=== PATIENT | male | born 1930 | race Caucasian/White ===

== ENCOUNTER 2016-12-02 13:36 | Observation (INO) ==
[2016-12-02] MEDS ORDERED: SALINE FLUSH 10ml SYRINGE IVF PRN (13:45)
--- NOTE | 2016-12-02 14:45 | Emergency Department Report ---
Medical Clearance HPI - General Chief complaint: Psychiatric Symptoms Stated complaint: [facility] evaluation Time Seen by Provider: 12/02/16 13:40 Source: family, RN notes reviewed Mode of arrival: ambulatory Limitations: altered mental status - History of Present Illness HPI Narrative: Pt here for medical clearance for [facility]. Family and NH staff report pt has had a progressive increase in aggressive behavior such as pinching and biting and has become increasingly more confused. MD complaint: medical clearance requested Onset (ago): unknown Reason for Medical Clearance: psychiatric condition Alleged Intoxication: No Traumatic Symptoms: denies traumatic injury Associated Symptoms: denies other symptoms Treatments Prior to Arrival: none Home medications: Home Medications Medication Instructions Recorded Confirmed Acetaminophen [Tylenol] 650 mg PO Q4HPRN PRN 12/02/16 12/03/16 Amlodipine [Norvasc] 5 mg PO DAILY 12/02/16 12/03/16 Atorvastatin [Lipitor] 40 mg PO HS 12/02/16 12/03/16 Dextran 70/Hypromellose 1 drop OP TID 12/02/16 12/03/16 [Artificial Tears Eye Drops] Ferrous Sulfate [Feosol] 325 mg PO DAILY 12/02/16 12/03/16 Indapamide [Lozol] 2.5 mg PO DAILY 12/02/16 12/03/16 Loratadine [Claritin] 10 mg PO DAILY PRN 12/02/16 12/03/16 Polyethylene Glycol 3350 [Miralax] 17 gm PO DAILY 12/02/16 12/03/16 Previous Rx's Medication Instructions Recorded Ascorbic Acid [Vitamin C] 250 mg PO DAILY tablet 12/16/16 Cyanocobalamin (B-12) [Vit. B-12] 1,000 mcg PO DAILY tablet 12/16/16 Ergocalciferol (Vit. D2) [Vitamin 50,000 unit PO Q7D capsule 12/16/16 D-2] Haloperidol [Haldol] 0.5 mg PO Q6H PRN #120 tab 12/16/16 PEG 3350 17gm PACKET [Miralax] 17 gm PO DAILY packet 12/16/16 Potassium Chloride [K-Dur] 10 meq PO WB tablet 12/16/16 Sennosides [Senna Lax] 17.2 mg PO HS tablet 12/16/16 Allergies/Adverse reactions: Allergies Allergy/AdvReac Type Severity Reaction Status Date / Time No Known Allergies Allergy Verified 12/02/16 13:53 Review of Systems Limitations: ROS unobtainable due to patient's medical condition PFS Patient Stated Medical History Dementia Yes Hypertension Yes Other Cardiology Yes: Hyperlipidemia Other GI Yes: Constipation Physical Exam - Limitations Limitations: altered mental status - General General appearance: alert, in no apparent distress - Normal Exams: Head:: Normocephalic without trauma Eyes:: Pupils are PERRLA w/ EOMI Neck:: Full range of motion, without adenopathy Chest/Respirations:: Clear all marshall, with good airflow, and symmetry bilaterally Cardiovascular:: Regular rate and rhythm, without murmur or gallop Abdomen:: Bowel sounds positive, soft, non-tender, non-distended Musculoskeletal:: No tenderness, or deformity noted, good range of motion, all extremities Integumentary:: No rashes Neurological:: Patient is alert (voices no complaints) Psychiatric:: Patient exhibits, appropriate attention, emotion and affect Course Vital Signs Temperature 97.6 F 12/02/16 13:40 Pulse Rate 73 12/02/16 13:40 Respiratory Rate 18 12/02/16 13:40 Blood Pressure 124/60 12/02/16 13:40 Pulse Oximetry 95 12/02/16 13:40 Temperature 96.2 F L 12/03/16 08:00 Pulse Rate 72 12/03/16 08:00 Respiratory Rate 16 12/03/16 08:00 Blood Pressure 135/67 12/03/16 08:00 Pulse Oximetry 98 12/03/16 08:00 Medical Clearance - [facility] Narrative Medical decision making narrative: EKG, and labs reviewed Hgb 8.0 with no obtainable history or old records for trending. There are no assessment findings consistent with lab results. Pt to be admitted to the hospitalist and then will transfer to [facility] when stable - Differential Diagnosis Differential Diagnosis Narrative: Anxiety, Depression, Dementia, UTI - Lab Data Attestation: I reviewed the patient's lab results. Result diagrams: 12/03/16 04:11 12/03/16 04:11 Lab Results 12/02/16 12/02/16 12/02/16 Range/Units 14:14 14:14 15:37 WBC 6.3 (4.5-11.0) T/MM3 RBC 2.70 L (4.50-5.90) M/MM3 Hgb 8.0 L (13.5-17.5) GM/DL Hct 25.5 L (41-53) % MCV 94.4 (80-100) UM3 MCH 29.6 (26-34) UUG MCHC 31.4 (31-37) GM/DL RDW Std Deviation 46.7 (36.9-50.2) FL Plt Count 199 (130-400) T/MM3 MPV 10.6 (9.4-12.4) UM3 Immature Gran % (Auto) 0.2 (0.0-0.5) % Neut % (Auto) 73.7 H (33-66) % Lymph % (Auto) 19.9 L (23-45) % [place] % (Auto) 4.6 (0-9.0) % Eos % (Auto) 0.8 (0-4) % Baso % (Auto) 0.8 (0-2) % Neut # (Auto) 4.6 (1.8-7.7) T/MM3 Lymph # (Auto) 1.3 (1-4.8) T/MM3 [place] # (Auto) 0.3 (0-0.8) T/MM3 Eos # (Auto) 0.1 (0-0.5) T/MM3 Baso # (Auto) 0.1 (0-0.2) T/MM3 Abs Immat Gran (auto) 0.01 (0.00-0.03) T/MM3 Turbidity < 20 (0-20) Sodium 142 (134-144) MEQ/L Potassium 3.2 L (3.6-5) MEQ/L Chloride 105 (98-107) MEQ/L Carbon Dioxide 28 (22-30) MEQ/L Anion Gap 9 (5-15) MEQ/L BUN 20.0 (9-20) MG/DL Creatinine 1.0 (0.8-1.5) MG/DL GFR Calculation 71 BUN/Creatinine Ratio 20 (6-26) RATIO Glucose 106 (75-110) MG/DL Calculated Osmolality 276 (261-280) MOSM/KG Calcium 7.7 L (8.4-10.2) MG/DL Total Bilirubin 0.50 (0.20-1.30) MG/DL Icterus Index < 2 (0-7) AST 16 L (17-59) U/L ALT 28 (21-72) U/L Alkaline Phosphatase 60 (38-126) U/L Total Protein 5.7 L (6.3-8.2) G/DL Albumin 2.9 L (3.5-5.0) G/DL Globulin 2.8 (2.4-3.6) G/DL Albumin/Globulin Ratio 1.0 L (1.1-2.2) RATIO TSH 1.34 (0.47-4.68) MIU/L Specimen Hemolysis < 15 (0-25) Ur Collection Type Urine, catheter Urine Color Yellow (YELLOW) Urine Clarity Clear Urine pH 5.5 (5.0-8.0) Ur Specific [place] 1.020 (1.015-1.025) Urine Protein Negative (NEGATIVE) Urine Glucose (UA) Negative (NEGATIVE) Urine Ketones Negative (NEGATIVE) Urine Occult Blood Negative (NEGATIVE) Urine Nitrate Negative (NEGATIVE) Urine Bilirubin Negative (NEGATIVE) Urine Urobilinogen 1.0 (NORMAL) EU/DL Ur Leukocyte Esterase Negative (NEGATIVE) Urinalysis Comment Microscopic not ind. Salicylates < 1.0 L (2-20) MG/DL Urine Opiates Screen ng/mL Ur Oxycodone Screen ng/mL Urine Methadone Screen ng/mL Ur Propoxyphene Screen ng/mL Acetaminophen < 10 L (10-30) UG/ML Ur Barbiturates Screen ng/mL U Tricyclic Antidepress ng/mL Ur Phencyclidine Scrn ng/mL Ur Amphetamines Screen ng/mL U Methamphetamines Scrn ng/mL U Benzodiazepines Scrn ng/mL Urine Cocaine Screen ng/mL U Cannabinoids Screen ng/mL 12/02/16 Range/Units 15:37 WBC (4.5-11.0) T/MM3 RBC (4.50-5.90) M/MM3 Hgb (13.5-17.5) GM/DL Hct (41-53) % MCV (80-100) UM3 MCH (26-34) UUG MCHC (31-37) GM/DL RDW Std Deviation (36.9-50.2) FL Plt Count (130-400) T/MM3 MPV (9.4-12.4) UM3 Immature Gran % (Auto) (0.0-0.5) % Neut % (Auto) (33-66) % Lymph % (Auto) (23-45) % [place] % (Auto) (0-9.0) % Eos % (Auto) (0-4) % Baso % (Auto) (0-2) % Neut # (Auto) (1.8-7.7) T/MM3 Lymph # (Auto) (1-4.8) T/MM3 [place] # (Auto) (0-0.8) T/MM3 Eos # (Auto) (0-0.5) T/MM3 Baso # (Auto) (0-0.2) T/MM3 Abs Immat Gran (auto) (0.00-0.03) T/MM3 Turbidity (0-20) Sodium (134-144) MEQ/L Potassium (3.6-5) MEQ/L Chloride (98-107) MEQ/L Carbon Dioxide (22-30) MEQ/L Anion Gap (5-15) MEQ/L BUN (9-20) MG/DL Creatinine (0.8-1.5) MG/DL GFR Calculation BUN/Creatinine Ratio (6-26) RATIO Glucose (75-110) MG/DL Calculated Osmolality (261-280) MOSM/KG Calcium (8.4-10.2) MG/DL Total Bilirubin (0.20-1.30) MG/DL Icterus Index (0-7) AST (17-59) U/L ALT (21-72) U/L Alkaline Phosphatase (38-126) U/L Total Protein (6.3-8.2) G/DL Albumin (3.5-5.0) G/DL Globulin (2.4-3.6) G/DL Albumin/Globulin Ratio (1.1-2.2) RATIO TSH (0.47-4.68) MIU/L Specimen Hemolysis (0-25) Ur Collection Type Urine Color (YELLOW) Urine Clarity Urine pH (5.0-8.0) Ur Specific [place] (1.015-1.025) Urine Protein (NEGATIVE) Urine Glucose (UA) (NEGATIVE) Urine Ketones (NEGATIVE) Urine Occult Blood (NEGATIVE) Urine Nitrate (NEGATIVE) Urine Bilirubin (NEGATIVE) Urine Urobilinogen (NORMAL) EU/DL Ur Leukocyte Esterase (NEGATIVE) Urinalysis Comment Salicylates (2-20) MG/DL Urine Opiates Screen Negative ng/mL Ur Oxycodone Screen Negative ng/mL Urine Methadone Screen Negative ng/mL Ur Propoxyphene Screen Negative ng/mL Acetaminophen (10-30) UG/ML Ur Barbiturates Screen Negative ng/mL U Tricyclic Antidepress Positive ng/mL Ur Phencyclidine Scrn Negative ng/mL Ur Amphetamines Screen Negative ng/mL U Methamphetamines Scrn Negative ng/mL U Benzodiazepines Scrn Negative ng/mL Urine Cocaine Screen Negative ng/mL U Cannabinoids Screen Negative ng/mL - EKG Data EKG #1 EKG shows normal: sinus rhythm [place]/QRS: left axis deviation, RBBB Disposition Clinical Impression: Dementia Qualifiers: Dementia type: unspecified type Dementia behavioral disturbance: with behavioral disturbance Qualified Code(s): F03.91 - Unspecified dementia with behavioral disturbance Disposition: 63 To [facility] [facility] Condition: Stable - Seen By: midlevel
--- OUTSIDE RECORDS SUMMARY | 2016-12-02 15:22 | External Medical Summary ---
:1930 Author Organization [facility] Address [address] [place] [address] Care Team Providers Name Role Phone Vaishnavi, Lenin Unavailable Unavailable PROBLEMS Unknown Problems ALLERGIES Unknown Allergies SOCIAL HISTORY No smoking Hx information available PLAN OF CARE VITAL SIGNS MEDICATIONS Unknown Medications RESULTS No Results PROCEDURES No Known procedures IMMUNIZATIONS No Known Immunizations
--- OUTSIDE RECORDS SUMMARY | 2016-12-02 15:22 | External Medical Summary ---
:1930 Author Organization [employer] Care Team Providers Name Role Phone Lenin Riggins Provider Role Unavailable Allergies No Known Allergies Problems Problem Type Condition ICD-9 Code Onset Dates Condition Status Problem Dementia 294.20 Active Problem Memory loss 780.93 Active Problem History of chicken pox V12.09 Active Problem Hyperlipidemia, Other and 272.4 Active unspecified Problem Hypertension, Unspecified 401.9 Active Problem Hypertrophy (benign) of prostate 600.01 Active with urinary obstruction and other lower urinary tract symptoms [LUTS] Medications No Known Medications Results No Known Results Summary Purpose [employer] Submission
--- OUTSIDE RECORDS SUMMARY | 2016-12-02 15:22 | External Medical Summary ---
:1930 Author Organization [employer] Care Team Providers Name Role Lenin Cevallos Provider Role Unavailable Allergies No Known Allergies Problems Problem Type Condition Code Onset Dates Condition Status Problem Hyperlipidemia, Other and 272.4 Active unspecified Problem Unstable gait R26.81 Active Problem History of chicken pox V12.09 Active Problem Chronic fatigue R53.82 Active Problem Hypertension, Unspecified 401.9 Active Problem Hypertrophy (benign) of prostate 600.01 Active with urinary obstruction and other lower urinary tract symptoms [LUTS] Problem Dementia 294.20 Active Problem Memory loss 780.93 Active Medications No Known Medications Results No Known Results Summary Purpose [email or web address] Submission
--- OUTSIDE RECORDS SUMMARY | 2016-12-02 15:22 | External Medical Summary ---
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
--- OUTSIDE RECORDS SUMMARY | 2016-12-02 15:22 | External Medical Summary ---
:1930 Author Organization [employer] Care Team Providers Name Role Phone Lenin Riggins Provider Role Unavailable Allergies No Known Allergies Problems Problem Type Condition ICD-9 Code Onset Dates Condition Status Assessment Memory loss 780.93 Active Problem Dementia 294.20 Active Problem Memory loss 780.93 Active Problem History of chicken pox V12.09 Active Problem Hyperlipidemia, Other and 272.4 Active unspecified Assessment Dementia 294.20 Active Problem Hypertension, Unspecified 401.9 Active Problem Hypertrophy (benign) of prostate 600.01 Active with urinary obstruction and other lower urinary tract symptoms [LUTS] Medications No Known Medications Procedures Procedure Coding System Code Date MRI BRAIN W/WO CPT-4 75075 May 11, 2014 Results No Known Results Summary Purpose [employer] Submission
--- OUTSIDE RECORDS SUMMARY | 2016-12-02 15:22 | External Medical Summary ---
:1930 Author Organization [employer] Care Team Providers Name Role Lenin Cevallos Provider Role Unavailable Allergies, Adverse Reactions, Alerts Substance Reaction Event Type N.K.D.A. Info Not Available Non Drug Allergy Problems Problem Type Condition ICD-9 Code Onset Dates Condition Status Assessment Anemia 285.9 Active Problem Dementia 294.20 Active Problem Memory loss 780.93 Active Problem History of chicken pox V12.09 Active Problem Hyperlipidemia, Other and 272.4 Active unspecified Assessment Dementia 294.20 Active Problem Hypertension, Unspecified 401.9 Active Problem Hypertrophy (benign) of prostate 600.01 Active with urinary obstruction and other lower urinary tract symptoms [LUTS] Medications Medication Code Code Instructions Start End Status Dosage System Date Date Namenda [facility] [address]-24 5 MG Orally May 1 tablet Twice a day 2012 Atorvastatin [facility] [id number] 40 MG TAKE ONE Calcium TABLET BY MOUTH EVERY DAY FOR 90 DAYS Amlodipine [facility] [address]-55 5 mg Orally 1 tablet Besylate Once a day Enalapril [facility] [address]-79 10 MG Orally qD Oct 17 TABLET Maleate 2008 Indapamide [facility] [address]-87 2.5 MG ORAL qD Feb 05 (one) 2004 TABLET qD Procedures Procedure Coding System Code Date VITAMIN B1 THIAMIN L CPT-4 63734 August 22, 2014 OFFICE VISITEST PT CPT-4 08055 August 22, 2014 CBC CPT-4 34917 August 22, 2014 Vital Signs Date/Time: August 22, 2014 Blood Pressure Systolic 124 mm Hg Height 70.25 in Weight 165.0 lbs BMI 23.50 Index Cardiac Monitoring Heart Rate 78 /min Blood Pressure Diastolic 76 mm Hg Results No Known Results Summary Purpose [employer] Submission
--- OUTSIDE RECORDS SUMMARY | 2016-12-02 15:23 | External Medical Summary ---
:1930 Author Organization [employer] Care Team Providers Name Role Phone Lenin Riggins Provider Role Unavailable Allergies No Known Allergies Problems Problem Type Condition Code Onset Dates Condition Status Problem Dementia 294.20 Active Problem Memory loss 780.93 Active Problem History of chicken pox V12.09 Active Problem Hyperlipidemia, Other and 272.4 Active unspecified Problem Hypertension, Unspecified 401.9 Active Problem Hypertrophy (benign) of prostate 600.01 Active with urinary obstruction and other lower urinary tract symptoms [LUTS] Medications No Known Medications Results No Known Results Summary Purpose [employer] Submission
--- OUTSIDE RECORDS SUMMARY | 2016-12-02 15:23 | External Medical Summary ---
:1930 Author Organization [employer] Care Team Providers Name Role Phone Lenin [...] Medications Results No Known Results Summary Purpose [employer] Submission
--- OUTSIDE RECORDS SUMMARY | 2016-12-02 15:23 | External Medical Summary ---
:1930 Author Organization [employer] Care Team Providers Name Role Phone Lenin Riggins Provider Role Unavailable Allergies No Known Allergies Problems Problem Type Condition ICD-9 Code Onset Dates Condition Status Problem Dementia 294.20 Active Problem Memory loss 780.93 Active Problem History of chicken pox V12.09 Active Problem Hyperlipidemia, Other and 272.4 Active unspecified Assessment Screening examination for V74.1 Active pulmonary tuberculosis Problem Hypertension, Unspecified 401.9 Active Problem Hypertrophy (benign) of prostate 600.01 Active with urinary obstruction and other lower urinary tract symptoms [LUTS] Medications No Known Medications Results No Known Results Summary Purpose [employer] Submission
--- OUTSIDE RECORDS SUMMARY | 2016-12-02 15:23 | External Medical Summary ---
:1930 Author Organization [employer] Care Team Providers Name Role Phone Lenin [...] Medications Results No Known Results Summary Purpose [employer] Submission
--- OUTSIDE RECORDS SUMMARY | 2016-12-02 15:23 | External Medical Summary ---
:1930 Author Organization [employer] Care Team Providers Name Role Phone Lenin [...] Medications Results No Known Results Summary Purpose [employer] Submission
--- OUTSIDE RECORDS SUMMARY | 2016-12-02 15:23 | External Medical Summary ---
:1930 Author Organization [employer] Care Team Providers Name Role Lenin Cevallos Provider Role Unavailable Allergies, Adverse Reactions, Alerts Substance Reaction Event Type N.K.D.A. Info Not Available Non Drug Allergy Problems Problem Type Condition ICD-9 Code Onset Dates Condition Status Assessment Hypertension, Unspecified 401.9 Active Problem Dementia 294.20 Active Problem Memory loss 780.93 Active Problem History of chicken pox V12.09 Active Problem Hyperlipidemia, Other and 272.4 Active unspecified Assessment Dementia 294.20 Active Problem Hypertension, Unspecified 401.9 Active Problem Hypertrophy (benign) of prostate 600.01 Active with urinary obstruction and other lower urinary tract symptoms [LUTS] Medications Medication Code Code Instructions Start End Status Dosage System Date Date Enalapril [facility] [address]-76 10 MG Orally qD Oct 17, TABLET Maleate 2008 Indapamide [facility] [address]-37 2.5 MG ORAL qD Feb 05, (one) 2003 TABLET qD Amlodipine [facility] 12363556821 5 MG TAKE ONE Besylate TABLET BY MOUTH EVERY DAY Atorvastatin [facility] 42794865059 40 MG TAKE ONE Calcium TABLET BY MOUTH EVERY DAY FOR 90 DAYS Namenda XR [facility] [address]-93 28 MG Orally September 06, 1 capsule Once a day 2014 Procedures Procedure Coding System Code Date OFFICE VISITEST PT CPT-4 96343 September 20, 2014 Vital Signs Date/Time: September 20, 2014 Blood Pressure Systolic 112 mm Hg Height 70.25 in Weight 157.0 lbs BMI 22.36 Index Cardiac Monitoring Heart Rate 78 /min Temperature 98.0 F Blood Pressure Diastolic 74 mm Hg Results No Known Results Summary Purpose [employer] Submission
--- OUTSIDE RECORDS SUMMARY | 2016-12-02 15:23 | External Medical Summary ---
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 20654937 with late onset Problem Dementia in other F02.80 Active 190549904 diseases classified elsewhere without behavioral disturbance Problem Essential I10 Active 23951474 hypertension Problem 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
--- OUTSIDE RECORDS SUMMARY | 2016-12-02 15:23 | External Medical Summary ---
:1930 Author Organization [employer] Care Team Providers Name Role Lenin Cevallos Provider Role Unavailable Allergies, Adverse Reactions, Alerts Substance Reaction Event Type N.K.D.A. Info Not Available Non Drug Allergy Problems Problem Type Condition Code Onset Dates Condition Status Assessment Unsteady gait R26.81 Active Problem Hyperlipidemia, Other and 272.4 Active unspecified Assessment Vertigo R42 Active Assessment Weight loss R63.4 Active Problem Unstable gait R26.81 Active Problem History of chicken pox V12.09 Active Problem Chronic fatigue R53.82 Active Problem Hypertension, Unspecified 401.9 Active Problem Hypertrophy (benign) of prostate 600.01 Active with urinary obstruction and other lower urinary tract symptoms [LUTS] Problem Dementia 294.20 Active Problem Memory loss 780.93 Active Medications Medication Code Code Instructions Start End Status Dosage System Date Date Atorvastatin [facility] 98693472090 40 MG TAKE 1 Calcium TABLET BY MOUTH EVERY DAY Amlodipine [facility] 77084916600 5 MG TAKE 1 Besylate TABLET BY MOUTH EVERY DAY Namenda XR [facility] [address]-68 28 MG Orally September 06, 1 capsule Once a day 2014 Enalapril [facility] [address]-94 10 MG Orally qD Oct 17, 1 TABLET Maleate 2009 [facility] [address]-63 Orally as Multivitamin directed for Men Indapamide [facility] 12487644524 2.5 MG TAKE 1 TABLET BY MOUTH EVERY DAY Procedures Procedure Coding System Code Date CBC CPT-4 14982 Nov 24, 2015 COMP PROFILE CPT-4 68144 Nov 24, 2015 AMYLASE CPT-4 89063 Nov 24, 2015 OFFICE VISITEST PT CPT-4 80297 Nov 24, 2015 Vital Signs Date/Time: Nov 24, 2015 Blood Pressure Systolic 122 mm Hg Height 70.25 in Weight 144.0 lbs BMI 20.51 Index Cardiac Monitoring Heart Rate 76 /min Temperature 98.4 F Blood Pressure Diastolic 80 mm Hg Results No Known Results Summary Purpose [employer] Submission
--- OUTSIDE RECORDS SUMMARY | 2016-12-02 15:23 | External Medical Summary ---
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
--- OUTSIDE RECORDS SUMMARY | 2016-12-02 15:23 | External Medical Summary | Referral Summary ---
:1930 Author Organization [facility] Address [address] [place] [address] Care Team Providers Name Role Phone VaishnaviLenin Primary Care Physician Encounter VC Date(s): 01/17/16 - 01/17/16 [facility] [address] [place] [address] [place] Discharge Diagnosis: Constipation Discharge Disposition: 01-Home or Self Care Attending Physician: Nikos Luke MD Admitting Physician: Nikos Luke MD Vital Signs Most recent to oldest [Reference Range]: 1 Temperature Oral [35.8-37.3 degC] 37.3 degC (01/17/16 12:13 PM) Peripheral Pulse Rate [60-100 bpm] 83 bpm (01/17/16 1:20 PM) Respiratory Rate [14-20 br/min] 16 br/min (01/17/16 1:20 PM) Blood Pressure [90-140/60-90 mmHg] 114/66 mmHg (01/17/16 1:20 PM) SpO2 96 % (01/17/16 1:20 PM) Problem List Condition Effective Dates Status Health Status Informant Hypertension(Confirmed) Active patient Dementia(Confirmed) Active patient Allergies, Adverse Reactions, Alerts No Known Medication Allergies Medications amLODIPine 5 mg oral tablet 0 Refill(s) Start Date: 08/28/15 Status: Orderedatorvastatin 40 mg oral tablet 0 Refill(s) Start Date: 08/28/15 Status: OrderedColace 100 mg oral capsule 100 mg 1 caps, Oral, BID, as needed for constipation, # 20 caps, 0 Refill(s) Start Date: 01/17/16 Status: Orderedenalapril 10 mg oral tablet 0 Refill(s) Start Date: 08/28/15 Status: OrderedGoLYTELY oral powder for reconstitution 240 mL, Oral, q10min, as directed on package labeling until one movement and then stop, # 1 Each, 0 Refill(s) Start Date: 08/28/15 Status: Orderedindapamide 2.5 mg oral tablet 0 Refill(s) Start Date: 08/28/15 Status: Orderedmineral oil oral liquid 30 mL, Oral, TID, as needed for constipation, # 480 mL, 0 Refill(s) Start Date: 01/17/16 Status: OrderedMiraLax oral powder for reconstitution 17 g, Oral, Daily, dissolve in water before taking, # 255 g, 0 Refill(s) Start Date: 01/17/16 Status: OrderedNamenda XR 28 mg oral capsule, extended release 28 mg, Oral, Daily, 0 Refill(s) Start Date: 08/28/15 Status: Ordered Results Chemistry Most recent to oldest [Reference Range]: 1 Occult Blood, Stool NPT [Negative] Negative (01/17/16 2:11 PM) Immunizations No data available for this section Procedures No data available for this section Social History Social History Type Response Smoking Status Never smoker Assessment and Plan No data available for this section
--- OUTSIDE RECORDS SUMMARY | 2016-12-02 15:23 | External Medical Summary ---
:1930 Author Organization [employer] Care Team Providers Name Role Phone Lenin Riggins Provider Role Unavailable Allergies, Adverse Reactions, Alerts Substance Reaction Event Type N.K.D.A. Info Not Available Non Drug Allergy Problems Problem Type Condition ICD-9 Code Onset Dates Condition Status Assessment Hyperlipidemia, Other and 272.4 Active unspecified Assessment Hypertension, Unspecified 401.9 Active Assessment Hypertrophy (benign) of prostate 600.01 Active with [...] Start End Status Dosage System Date Date Indapamide [facility] [address]-63 2.5 MG ORAL qD Feb 05 (one) 2003 TABLET qD Amlodipine [facility] [address]-98 5 mg Orally 1 tablet Besylate Once a day Namenda [facility] [address]-28 5 MG Orally May 01 tablet Twice a day [address] [facility] [address]-74 10 MG Orally qD Oct 17 TABLET Maleate [address] [facility] 24616083908 40 MG TAKE ONE Calcium TABLET BY MOUTH EVERY DAY FOR 90 DAYS Procedures Procedure Coding System Code Date OFFICE VISITEST PT CPT-4 54260 August 31, 2014 Vital Signs Date/Time: August 31, 2014 Blood Pressure Systolic 110 mm Hg Height 70.25 in Weight 162.0 lbs BMI 23.08 Index Cardiac Monitoring Heart Rate 78 /min Blood Pressure Diastolic 80 mm Hg Results No Known Results Summary Purpose [employer] Submission
--- OUTSIDE RECORDS SUMMARY | 2016-12-02 15:23 | External Medical Summary ---
:1930 Author Organization [employer] Care Team Providers Name Role Phone Lenin [...] Medications Results No Known Results Summary Purpose [employer] Submission
--- OUTSIDE RECORDS SUMMARY | 2016-12-02 15:23 | External Medical Summary ---
:1930 Author Organization [employer] Care Team Providers Name Role Phone Lenin [...] Medications Results No Known Results Summary Purpose [employer] Submission
--- OUTSIDE RECORDS SUMMARY | 2016-12-02 15:23 | External Medical Summary ---
:1930 Author Organization [employer] Care Team Providers Name Role Lenin Cevallos Provider Role Unavailable Allergies, Adverse Reactions, Alerts Substance Reaction Event Type N.K.D.A. Info Not Available Non Drug Allergy Problems Problem Type Condition Code Onset Dates Condition Status Assessment Dementia 294.20 Active Assessment Anemia 285.9 Active Problem Dementia 294.20 Active Problem Memory loss 780.93 Active Problem History of chicken pox V12.09 Active Problem Hyperlipidemia, Other and 272.4 Active unspecified Assessment Hypertension, Unspecified 401.9 Active Problem Hypertension, Unspecified 401.9 Active Problem Hypertrophy (benign) of prostate 600.01 Active with urinary obstruction and other lower urinary tract symptoms [LUTS] Medications Medication Code Code Instructions Start End Status Dosage System Date Date Namenda [facility] [address]-78 5 MG Orally May 1 tablet Twice a day 2012 Enalapril [facility] [address]-47 10 MG Orally qD Oct 17 TABLET Maleate 2008 Atorvastatin [facility] 27204249930 40 MG TAKE ONE Calcium TABLET BY MOUTH EVERY DAY FOR 90 DAYS Amlodipine [facility] [address]-25 5 mg Orally 1 tablet Besylate Once a day Indapamide [facility] [address]-37 2.5 MG ORAL qD Feb 05 (one) 2003 TABLET qD Procedures Procedure Coding System Code Date COMP PROFILE CPT-4 74751 June 08, 2014 OFFICE VISITEST PT CPT-4 65592 June 08, 2014 CBC CPT-4 64652 June 08, 2014 Vital Signs Date/Time: June 08, 2014 Blood Pressure Systolic 124 mm Hg Height 70.25 in Weight 168.0 lbs BMI 23.93 Index Temperature 98.4 F Blood Pressure Diastolic 76 mm Hg Results No Known Results Summary Purpose [employer] Submission
--- OUTSIDE RECORDS SUMMARY | 2016-12-02 15:23 | External Medical Summary ---
:1930 Author Organization [employer] Care Team Providers Name Role Phone Lenin [...] Medications Results No Known Results Summary Purpose [employer] Submission
--- OUTSIDE RECORDS SUMMARY | 2016-12-02 15:23 | External Medical Summary ---
:1930 Author Organization [employer] Care Team Providers Name Role Phone Lenin [...] Medications Results No Known Results Summary Purpose [employer] Submission
--- OUTSIDE RECORDS SUMMARY | 2016-12-02 15:23 | External Medical Summary ---
:1930 Author Organization [employer] Care Team Providers Name Role Lenin Cevallos Provider Role Unavailable Allergies, Adverse Reactions, Alerts Substance Reaction Event Type N.K.D.A. Info Not Available Non Drug Allergy Problems Problem Type Condition Code Onset Dates Condition Status Assessment Memory loss 780.93 Active Assessment Dementia 294.20 Active Assessment Hyperlipidemia, Other and 272.4 Active unspecified Problem Dementia 294.20 Active Problem Memory loss 780.93 Active Problem History of chicken pox V12.09 Active Problem Hyperlipidemia, Other and 272.4 Active unspecified Assessment Visit for TB skin test V74.1 Active Problem Hypertension, Unspecified 401.9 Active Problem Hypertrophy (benign) of prostate 600.01 Active with urinary obstruction and other lower urinary tract symptoms [LUTS] Medications Medication Code Code Instructions Start End Status Dosage System Date Date Indapamide [facility] [address]-10 2.5 MG ORAL qD Feb 05, (one) 2003 TABLET qD Namenda XR [facility] [address]-89 28 MG Orally September 06, 1 capsule Once a day 2014 Atorvastatin [facility] 02371260274 40 MG TAKE ONE Calcium TABLET BY MOUTH EVERY DAY FOR 90 DAYS Enalapril [facility] [address]-82 10 MG Orally qD Oct 17, 1 TABLET Maleate 2008 Amlodipine [facility] 19306041711 5 MG TAKE ONE Besylate TABLET BY MOUTH EVERY DAY Procedures Procedure Coding System Code Date Administration Fee 18yrs and up 1st injection CPT-4 05135 Nov 02, 2014 TB TUBERSOL CPT-4 18843 Nov 02, 2014 Mantoux Intradermal CPT-4 55341 Nov 02, 2014 OFFICE VISITEST PT CPT-4 45590 Nov 02, 2014 Vital Signs Date/Time: Nov 02, 2014 Blood Pressure Systolic 124 mm Hg Height 70.25 in Weight 159.0 lbs BMI 22.65 Index Cardiac Monitoring Heart Rate 78 /min Temperature 98.5 F Blood Pressure Diastolic 80 mm Hg Results No Known Results Immunizations Vaccine Administration Date Mantoux Intradermal Nov 02, 2014 Summary Purpose [employer] Submission
--- OUTSIDE RECORDS SUMMARY | 2016-12-02 15:23 | External Medical Summary ---
:1930 Author Organization [employer] Care Team Providers Name Role Phone Lenin [...] Medications Results No Known Results Summary Purpose [employer] Submission
--- OUTSIDE RECORDS SUMMARY | 2016-12-02 15:23 | External Medical Summary ---
[...] Hyperlipidemia, Other and 272.4 Active unspecified Assessment Swollen lip 528.5 Active Problem Hypertension, Unspecified 401.9 Active Problem Hypertrophy (benign) of prostate 600.01 Active with urinary obstruction and other lower urinary tract symptoms [LUTS] Medications Medication Code Code Instructions Start End Status Dosage System Date Date Amlodipine [facility] [address]-46 5 mg Orally 1 tablet Besylate Once a day Atorvastatin [facility] 23052819489 40 MG TAKE ONE Calcium TABLET BY MOUTH EVERY DAY FOR 90 DAYS Indapamide [facility] [address]-34 2.5 MG ORAL qD Feb 05, (one) 2003 TABLET qD Enalapril [facility] [address]-18 10 MG Orally qD Oct 17 TABLET Maleate 2008 Namenda [facility] [address]-98 5 MG Orally May 1 tablet Twice a day 2012 Procedures Procedure Coding System Code Date OFFICE VISITEST PT CPT-4 71938 July 14, 2014 Vital Signs Date/Time: July 14, 2014 Blood Pressure Systolic 122 mm Hg Height 70.25 in Weight 165.6 lbs BMI 23.59 Index Cardiac Monitoring Heart Rate 78 /min Temperature 98.3 F Blood Pressure Diastolic 80 mm Hg Results No Known Results Summary Purpose [employer] Submission
--- OUTSIDE RECORDS SUMMARY | 2016-12-02 15:23 | External Medical Summary ---
[...] urinary tract symptoms [LUTS] Medications Medication Code System Code Instructions Start Date End Date Status Dosage Namenda XR [facility] [address] 28 MG Orally Once September 06, 1 capsule 8-33 a day 2014 Results No Known Results Summary Purpose [employer] Submission
--- OUTSIDE RECORDS SUMMARY | 2016-12-02 15:23 | External Medical Summary ---
:1930 Author Organization 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
--- OUTSIDE RECORDS SUMMARY | 2016-12-02 15:23 | External Medical Summary ---
:1930 Author Organization [employer] Care Team Providers Name Role Phone Lenin [...] Medications Results No Known Results Summary Purpose [employer] Submission
--- OUTSIDE RECORDS SUMMARY | 2016-12-02 15:23 | External Medical Summary ---
:1930 Author Organization [email or web address] Care Team Providers Name Role Phone Lenin [...] Medications Results No Known Results Summary Purpose [email or web address] Submission
--- OUTSIDE RECORDS SUMMARY | 2016-12-02 15:23 | External Medical Summary ---
:1930 Author Organization [employer] Care Team Providers Name Role Phone Lenin Riggins Provider Role Unavailable Allergies No Known Allergies Problems Problem Type Condition ICD-9 Code Onset Dates Condition Status Assessment Pre-procedure lab exam V72.63 Active Problem Dementia 294.20 Active Problem Memory loss 780.93 Active Problem History of chicken pox V12.09 Active Problem Hyperlipidemia, Other and 272.4 Active unspecified Assessment Dementia 294.20 Active Problem Hypertension, Unspecified 401.9 Active Problem Hypertrophy (benign) of prostate 600.01 Active with urinary obstruction and other lower urinary tract symptoms [LUTS] Medications No Known Medications Procedures Procedure Coding System Code Date CREATININE CPT-4 73529 May 11, 2014 Results No Known Results Summary Purpose [employer] Submission
--- OUTSIDE RECORDS SUMMARY | 2016-12-02 15:23 | External Medical Summary ---
:1930 Author Organization [employer] Care Team Providers Name Role Lenin Cevallos Provider Role Unavailable Allergies, Adverse Reactions, Alerts Substance Reaction Event Type N.K.D.A. Info Not Available Non Drug Allergy Problems Problem Type Condition Code Onset Dates Condition Status Problem Hyperlipidemia, Other and 272.4 Active unspecified Assessment Chronic fatigue R53.82 Active Problem Unstable gait R26.81 Active Problem History of chicken pox V12.09 Active Problem Chronic fatigue R53.82 Active Problem Hypertension, Unspecified 401.9 Active Problem Hypertrophy (benign) of prostate 600.01 Active with urinary obstruction and other lower urinary tract symptoms [LUTS] Problem Dementia 294.20 Active Problem Memory loss 780.93 Active Medications Medication Code Code Instructions Start End Status Dosage System Date Date Indapamide [facility] 83714642026 2.5 MG TAKE 1 TABLET BY MOUTH EVERY DAY Daquan [facility] [address]-54 Orally as Multivitamin directed for Men Amlodipine [facility] 57199560322 5 MG TAKE 1 Besylate TABLET BY MOUTH EVERY DAY Namenda XR [facility] [address]-99 28 MG Orally September 06, 1 capsule Once a day 2014 Enalapril [facility] [address]-24 10 MG Orally qD Oct 17, 1 TABLET Maleate 2008 Atorvastatin [facility] 47314791208 40 MG TAKE 1 Calcium TABLET BY MOUTH EVERY DAY Procedures Procedure Coding System Code Date COMP PROFILE CPT-4 83858 September 20, 2015 OFFICE VISITEST PT CPT-4 52553 September 20, 2015 CBC CPT-4 09637 September 20, 2015 Vital Signs Date/Time: September 20, 2015 Blood Pressure Systolic 122 mm Hg Height 70.25 in Weight 144.0 lbs BMI 20.51 Index Cardiac Monitoring Heart Rate 78 /min Temperature 98.2 F Blood Pressure Diastolic 80 mm Hg Results Name Result Date Reference Range Unit Abnormality Flag CBC ----MCV 95.1 20150920 80.0-94.0 FL H ----HCT 35.1 20150920 39.0-49.0 % L ----MCHC 32.5 10916961 32.0-36.0 G/DL ----MCH 30.9 [id number] 26.0-32.0 PG ----EO# 0.1 [id number] 0.0-0.2 X10^3/UL ----PLT 234 93730032 130-400 X10^3 ----EO% 1.4 45835922 0.0-3.0 % ----RDW 13.3 81525725 11.5-15.5 % ----MO# 0.5 [id number] 0.1-0.6 X10^3/UL ----MO% 5.6 [id number] 1.7-9.3 % ----LY# 1.7 [id number] 1.2-3.4 X10^3/UL ----BA# 0.1 [id number] 0.0-0.1 X10^3/UL ----BA% 0.6 77821590 0.0-1.0 % ----HGB 11.4 74498375 13.8-17.0 G/DL L ----RBC 3.69 20105932 4.50-5.70 X10^6 L ----MPV 11.4 14529731 9.0-12.1 FL ----WBC 8.5 95597610 4.0-10.0 X10^3/UL ----NE% 72.1 59512163 42.2-75.2 % ----NE# 6.1 [id number] 1.4-6.5 X10^3/UL ----LY% 20.2 [id number] 20.5-51.1 % L COMPREHENSIVE CHEM PROFILE ----SODIUM 146 [id number] 133-145 MMOL/L H ----TOTAL BILI 0.23 [id number] 0.00-1.00 MG/DL ----CHLORIDE 101 [id number] 96-108 MMOL/L ----POTASSIUM 3.5 [id number] 3.3-5.1 MMOL/L ----CALCIUM 9.6 [id number] 8.7-10.3 MG/DL ----AST/SGOT 28 22924148 5-40 U/L ----CO2 33 45035392 23-31 MMOL/L H ----TOTAL PROTEIN 7.1 06150829 5.9-8.4 G/DL ----eGFR If Am 77 [id number] >60 ml/min/1.73m^ 2 ----ALBUMIN 4.3 [id number] 3.2-5.2 G/DL ----eGFR If Non 63 [id number] >60 ml/min/1.73m^ Am 2 ----BUN 30 [id number] 8-23 MG/DL H ----ALT/SGPT 35 96424862 5-40 U/L ----ALK PHOS 87 [id number] 34-114 U/L ----CREATININE 1.1 [id number] 0.5-1.2 MG/DL ----GLUCOSE 135 58156145 60-99 MG/DL H ----GLOBULIN 2.8 [id number] 2.0-4.4 G/DL Summary Purpose [employer]Works Submission
--- OUTSIDE RECORDS SUMMARY | 2016-12-02 15:23 | External Medical Summary ---
[...] End Status Dosage System Date Date Namenda [facility] [address]-81 5 MG Orally May 01 tablet Twice a day 2012 Atorvastatin [facility] 04592415856 40 MG TAKE ONE Calcium TABLET BY MOUTH EVERY DAY FOR 90 DAYS Enalapril [facility] [address]-13 10 MG Orally qD Oct 17 TABLET Maleate 2008 Amlodipine [facility] [address]-01 5 mg Orally 1 tablet Besylate Once a day Indapamide [facility] [address]-44 2.5 MG ORAL qD Feb 05 (one) 2003 TABLET qD Procedures Procedure Coding System Code Date OFFICE VISITEST PT CPT-4 51159 Apr 25, 2014 Vital Signs Date/Time: Apr 25, 2014 Blood Pressure Systolic 124 mm Hg Height 70.25 in Weight 172.8 lbs BMI 24.62 Index Cardiac Monitoring Heart Rate 80 /min Blood Pressure Diastolic 80 mm Hg Results No Known Results Summary Purpose [employer] Submission
--- OUTSIDE RECORDS SUMMARY | 2016-12-02 15:23 | External Medical Summary ---
:1930 Author Organization [employer] Care Team Providers Name Role Phone Lenin [...] Medications Procedures Procedure Coding System Code Date Administration Fee 18yrs and up 1st injection CPT-4 97120 Nov 21, 2014 TB TUBERSOL CPT-4 33306 Nov 21, 2014 Mantoux Intradermal CPT-4 72510 Nov 21, 2014 Results No Known Results Immunizations Vaccine Administration Date Mantoux Intradermal Nov 21, 2014 Summary Purpose [employer] Submission
--- OUTSIDE RECORDS SUMMARY | 2016-12-02 15:23 | External Medical Summary ---
:1930 Author Organization [employer] Care Team Providers Name Role Lenin Cevallos Provider Role Unavailable Allergies, Adverse Reactions, Alerts Substance Reaction Event Type N.K.D.A. Info Not Available Non Drug Allergy Problems Problem Type Condition ICD-9 Code Onset Dates Condition Status Assessment Hypertrophy (benign) of prostate 600.01 Active with urinary obstruction and other lower urinary tract symptoms [LUTS] Assessment Dementia 294.20 Active Assessment Hypertension, Unspecified 401.9 Active Assessment Hematuria 599.70 Active Problem Dementia 294.20 Active Problem Memory loss 780.93 Active Problem History of chicken pox V12.09 Active Problem Hyperlipidemia, Other and 272.4 Active unspecified Assessment Anemia 285.9 Active Problem Hypertension, Unspecified 401.9 Active Problem Hypertrophy (benign) of prostate 600.01 Active with urinary obstruction and other lower urinary tract symptoms [LUTS] Medications Medication Code Code Instructions Start End Status Dosage System Date Date Atorvastatin [facility] 33582446343 40 MG TAKE ONE Calcium TABLET BY MOUTH EVERY DAY FOR 90 DAYS Indapamide [facility] [address]-47 2.5 MG ORAL qD Feb 05 (one) 2003 TABLET qD Namenda [facility] [address]-45 5 MG Orally May 1 tablet Twice a day 2012 Amlodipine [facility] [address]-94 5 mg Orally 1 tablet Besylate Once a day Enalapril [facility] [address]-54 10 MG Orally qD Oct 17, TABLET Maleate 2008 Procedures Procedure Coding System Code Date COMP PROFILE CPT-4 61989 Apr 07, 2014 T4 CPT-4 91881 Apr 07, 2014 CBC CPT-4 92408 Apr 07, 2014 URINALYSIS CPT-4 70138 Apr 07, 2014 TSH CPT-4 05546 Apr 07, 2014 URINE CULTURE CPT-4 05703 Apr 07, 2014 OFFICE VISITEST PT CPT-4 96347 Apr 07, 2014 Vital Signs Date/Time: Apr 07, 2014 Blood Pressure Systolic 122 mm Hg Height 70.25 in Weight 173.4 lbs Oximetry 98 % Cardiac Monitoring Heart Rate 65 /min Temperature 97.6 F Blood Pressure Diastolic 82 mm Hg BMI 24.70 Index Results No Known Results Summary Purpose [employer] Submission
--- OUTSIDE RECORDS SUMMARY | 2016-12-02 15:24 | External Medical Summary ---
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
--- OUTSIDE RECORDS SUMMARY | 2016-12-02 15:24 | External Medical Summary ---
[...] loss 780.93 Active Medications No Known Medications Procedures Procedure Coding System Code Date MRI BRAIN W/WO CPT-4 48394 Nov 29, 2015 Results No Known Results Summary Purpose [employer] Submission
--- OUTSIDE RECORDS SUMMARY | 2016-12-02 15:24 | External Medical Summary ---
:1930 Author Organization [employer] Care Team Providers Name Role Phone Lenin [...] Medications Results No Known Results Summary Purpose [employer] Submission
--- OUTSIDE RECORDS SUMMARY | 2016-12-02 15:24 | External Medical Summary ---
:1930 Author Organization [facility] Address [address] [place] [address] Care Team Providers Name Role Phone Vaishnavi, Lenin Unavailable Unavailable PROBLEMS Type Condition ICD9-CM Code [id number] Code Onset Condition SNOMED Code Dates Status Problem Hypertrophy 600.01 Active 275637681 (benign) of prostate with urinary obstruction and other lower urinary tract symptoms [LUTS] Problem Hyperlipidemia, 272.4 Active 96475795 Other and unspecified Problem Chronic fatigue R53.82 Active 21166593 Problem Unstable gait R26.81 Active 43646500 Problem Memory loss 780.93 Active 21622798 Problem Hypertension, 401.9 Active 26998870 Unspecified Problem History of V12.09 Active 300116033 chicken pox Problem Dementia 294.20 Active 17944412 ALLERGIES Unknown Allergies SOCIAL HISTORY No smoking Hx information available PLAN OF CARE VITAL SIGNS MEDICATIONS Unknown Medications RESULTS No Results PROCEDURES No Known procedures IMMUNIZATIONS No Known Immunizations
--- OUTSIDE RECORDS SUMMARY | 2016-12-02 15:24 | External Medical Summary ---
[...] Medications Results No Known Results Summary Purpose [employer] Submission
--- OUTSIDE RECORDS SUMMARY | 2016-12-02 15:24 | External Medical Summary | Referral Summary ---
:1930 Author Organization [facility] Address [address] [place] [address] Care Team Providers Name Role Phone VaishnaviLenin Primary Care Physician Encounter VC Date(s): 08/28/15 - 08/28/15 [facility] [address] [place] [address] [phone] Discharge Diagnosis: Fecal impaction in rectum Discharge Diagnosis: Constipation Discharge Disposition: 01-Home or Self Care Attending Physician: Matt Ruano MD Admitting Physician: Matt Ruano MD Vital Signs Most recent to oldest [Reference Range]: 1 Temperature Oral [35.8-37.3 degC] 37.1 degC (08/28/15 9:58 AM) Peripheral Pulse Rate [60-100 bpm] 70 bpm (08/28/15 9:58 AM) Respiratory Rate [14-20 br/min] 18 br/min (08/28/15 9:58 AM) Blood Pressure [90-140/60-90 mmHg] 147/68 mmHg *HI* (08/28/15 9:58 AM) SpO2 93 % (08/28/15 9:58 AM) Problem List No data available for this section Allergies, Adverse Reactions, Alerts No Known Medication Allergies Medications amLODIPine 5 mg oral tablet 0 Refill(s) Start Date: 08/28/15 Status: Orderedatorvastatin 40 mg oral tablet 0 Refill(s) Start Date: 08/28/15 Status: Orderedenalapril 10 mg oral tablet 0 Refill(s) Start Date: 08/28/15 Status: OrderedGoLYTELY oral powder for reconstitution 240 mL, Oral, q10min, as directed on package labeling until one movement and then stop, # 1 Each, 0 Refill(s) Start Date: 08/28/15 Status: Orderedindapamide 2.5 mg oral tablet 0 Refill(s) Start Date: 08/28/15 Status: OrderedNamenda XR 28 mg oral capsule, extended release 28 mg, Oral, Daily, 0 Refill(s) Start Date: 08/28/15 Status: Ordered Results No data available for this section Immunizations No data available for this section Procedures No data available for this section Social History Social History Type Response Smoking Status Never smoker Assessment and Plan No data available for this section
--- OUTSIDE RECORDS SUMMARY | 2016-12-02 15:24 | External Medical Summary ---
:1930 Author Organization [email or web address] Care Team Providers Name Role Phone Lenin [...] Medications Results No Known Results Summary Purpose [email or web address] Submission
--- OUTSIDE RECORDS SUMMARY | 2016-12-02 15:24 | External Medical Summary ---
[...] Medications Results No Known Results Summary Purpose [employer] Submission
--- OUTSIDE RECORDS SUMMARY | 2016-12-02 15:24 | External Medical Summary ---
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 Unknown Non Drug Allergy May, Unknown SOCIAL HISTORY No smoking Hx information available PLAN OF CARE VITAL SIGNS Weight 148.7 lbs 2016-05-15 Height 70.25 in 2016-05-15 BMI 21.18 kg/m2 2016-05-15 Blood pressure systolic 124 mm Hg 2016-05-15 Blood pressure diastolic 68 mm Hg 2016-05-15 MEDICATIONS Medication Instructions Dosage Frequency Start End Duration Status Date Date Atorvastatin TAKE 1 90 Active Calcium 40 MG TABLET BY MOUTH EVERY DAY Indapamide 2.5 TAKE 1 90 Active MG TABLET BY MOUTH EVERY DAY Namenda XR 28 MG Orally Once a 1 capsule 24h Aug, DAYS Active day 2014 Enalapril TAKE 1 90 Active Maleate 10 MG TABLET BY MOUTH EVERY DAY Daquan as directed Active Multivitamin for Men Amlodipine TAKE 1 90 Active Besylate 5 MG TABLET BY MOUTH EVERY DAY RESULTS No Results PROCEDURES Procedure Date Ordered Related Diagnosis Body Site OFFICE VISITEST PT May 15, 2016 IMMUNIZATIONS No Known Immunizations
--- OUTSIDE RECORDS SUMMARY | 2016-12-02 15:24 | External Medical Summary ---
:1930 Author Organization [employer] Care Team Providers Name Role Phone Lenin [...] Medications Results No Known Results Summary Purpose [employer] Submission
--- OUTSIDE RECORDS SUMMARY | 2016-12-02 15:24 | External Medical Summary ---
[...] End Status Dosage System Date Date Enalapril [facility] [address]-34 10 MG Orally qD Oct 17 TABLET Maleate 2008 Namenda [facility] [address]-32 5 MG Orally May 1 tablet Twice a day 2012 Atorvastatin [facility] [id number] 40 MG TAKE ONE Calcium TABLET BY MOUTH EVERY DAY FOR 90 DAYS Indapamide [facility] [address]-96 2.5 MG ORAL qD Feb 05 (one) 2003 TABLET qD Amlodipine [facility] [address]-99 5 mg Orally 1 tablet Besylate Once a day Procedures Procedure Coding System Code Date OFFICE VISITEST PT CPT-4 52334 May 03, 2014 Vital Signs Date/Time: May 03, 2014 Blood Pressure Systolic 122 mm Hg Height 70.25 in Weight 168.0 lbs BMI 23.93 Index Cardiac Monitoring Heart Rate 76 /min Blood Pressure Diastolic 74 mm Hg Results No Known Results Summary Purpose [employer] Submission
--- NOTE | 2016-12-02 18:20 | History & Physical Report ---
<Raquel Laguna - Last Filed: 12/02/16 18:22> History of Present Illness Date: 12/02/16 Chief complaint: behavioral changes HPI: Patient is an 86-year-old male who resides at [facility]. He is brought into the emergency room for clearance to the [facility] due to increasing behaviors. In clearing him for the [facility], he was found to have a hemoglobin of 8.0. His previous hemoglobin was 10/07/16 was 9.2. There is no indication as to why he is anemic. He has a normocytic anemia. His CMP shows his potassium to be low at 3.2, calcium 7.7. TSH 1.34. Urinalysis was negative. EKG normal sinus rhythm with a right bundle branch block. Patient was interviewed while in the emergency room. He is alert and oriented only to himself. The ER nurse reports that he has been pleasant and cooperative , but likes to wander. He denies any complaints. He is unable to give any history due to his dementia. All information is gathered from his chart. It does appear that he was previously started on ferrous sulfate 10/08/16 along with vitamin D 50,000 international units weekly. On further review of previous labs from 10/07/16, his iron level was low at 52 (normal 65-175). His iron binding capacity, percent saturation, and unbound iron levels were all within normal limits. His vitamin D level was 19. Review of Systems ROS unobtainable: due to mental status (dementia) All systems PM: 10-point ROS was reviewed, no additional remarkable complaints except PFSH Past medical history Dementia Hyperlipidemia Hypertension Surgical History: Colonoscopy by Dr. 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 PCP-Dr. Tamara Anand Medications Home Medications Medication Instructions Recorded Confirmed Type Acetaminophen [Tylenol] 650 mg PO Q4HPRN PRN 12/02/16 12/02/16 History Amlodipine [Norvasc] 5 mg PO DAILY 12/02/16 12/02/16 History Atorvastatin [Lipitor] 40 mg PO HS 12/02/16 12/02/16 History Dextran 70/Hypromellose 1 drop OP TID 12/02/16 12/02/16 History [Artificial Tears Eye Drops] Docusate Sodium [Colace] 200 mg PO BID 12/02/16 12/02/16 History Ferrous Sulfate [Feosol] 325 mg PO DAILY 12/02/16 12/02/16 History Indapamide [Lozol] 2.5 mg PO DAILY 12/02/16 12/02/16 History LORazepam [Ativan] 0.5 mg PO Q4HPRN PRN 12/02/16 12/02/16 History Loratadine [Claritin] 10 mg PO DAILY PRN 12/02/16 12/02/16 History Mineral Oil Oral Liq [Mineral Oil] 30 ml PO TID PRN 12/02/16 12/02/16 History Polyethylene Glycol 3350 [Miralax] 17 gm PO DAILY 12/02/16 12/02/16 History Quetiapine [Seroquel] 12.5 mg PO DAILY 12/02/16 12/02/16 History Sertraline HCl [Zoloft] 25 mg PO DAILY 12/02/16 12/02/16 History Allergies Allergy/AdvReac Type Severity Reaction Status Date / Time No Known Allergies Allergy Verified 12/02/16 13:53 Exam Vital Signs: Temperature 97.2 F 12/02/16 18:08 Pulse Rate 79 12/02/16 18:08 Respiratory Rate 18 12/02/16 18:08 Blood Pressure 135/68 12/02/16 18:08 Pulse Oximetry 98 12/02/16 18:08 - Constitutional Present: no acute distress, well nourished, well developed, thin - Routine HEENT Exam Head: Present: normocephalic, atraumatic Eye: Present: EOMI, PERRL ENT: Present: mucous membranes moist, oropharynx clear, dentition normal - Routine Neck Exam Present: supple. Absent: carotid bruit, thyromegaly - Routine Respiratory Exam Present: CTA bilaterally. Absent: wheezes - Routine Cardiovascular Exam Present: RRR, S1, S2. Absent: murmur - Routine Abdominal Exam Present: soft, normoactive bowel sounds, non distended. Absent: tenderness - Routine Extremities Exam Present: no edema, normal capillary refill - Routine Skin Exam Present: dry, warm, lesions (multiple lesions to face-SKs and solar damage) - Routine Neurological Exam Present: alert, CN II-XII intact. Absent: oriented X3 (oriented to self only) - Routine Psychiatric Exam Present: normal affect, cooperative. 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 Loyola, with a plan to transfer to [facility] once he is determined to be stable. Patient does not meet criteria for transfusion at this time. He is stable. Will follow hemoglobin. Consider FOB, but even if this were positive, patient is poor candidate for further workup including colonoscopy, etc. (Neg FOB 01/2016) SCDs for DVT prophylaxis Give 20 mEq potassium with supper for hypokalemia Continue home medications CBC and BMP in the a.m. to reassess hemoglobin and electrolytes. If stable, will transfer to [facility]. Full Code based on information in paperwork. On dismissal, care will return to Dr. Tamara Anand. Hospital Course Summary Disclaimer: The visit summary below is not to be considered part of the above Progress Note. 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 Loyola, with a plan to transfer to [facility] once he is determined to be stable. Patient does not meet criteria for transfusion at this time. He is stable. Will follow hemoglobin. Consider FOB, but even if this were positive, patient is poor candidate for further workup including colonoscopy, etc. (Neg FOB 01/2016) SCDs for DVT prophylaxis Give 20 mEq potassium with supper for hypokalemia Continue home medications CBC and BMP in the a.m. to reassess hemoglobin and electrolytes. If stable, will transfer to [facility]. Full Code based on information in paperwork. On dismissal, care will return to Dr. Tamara Anand. <Raya Loyola - Last Filed: 12/02/16 20:18> History of Present Illness Date: 12/02/16 Exam Vital Signs: Temperature 96.8 F 12/02/16 18:36 Pulse Rate 62 12/02/16 18:36 Respiratory Rate 16 12/02/16 18:36 Blood Pressure 140/74 H 12/02/16 18:36 Pulse Oximetry 99 12/02/16 18:36 Height/Weight/BMI: Height 1.83 m Weight 63 kg Body Mass Index 18.8 Results - Labs CBC & Chem 7: 12/02/16 14:14 12/02/16 14:14 Assessment and Plan Assessment and Plan: I have independently evaluated and examined this patient. I reviewed the chart, the patient's history, and the PLASTIC EYE TECHNICIAN/PA's documented findings as above. We discussed and formulated the assessment and plan as above with additions as below: Mr. Patricio was slightly agitated when seen but denied any recognized bleeding. His son reports no history of coronary disease, myocardial infarction, or stroke. Patient has a living will and his son indicated they are not interested in surgical management given his father's overall debility. Patient is unable to provide any history pertinent to presentation. Increased behavioral problems with agitation, aggressive behavior towards staff at the [facility] home and directed at his reported prior to transfer. Additionally is known that the patient was hospitalized at [facility] earlier this year with a fecal impaction. Abdominal CT scan at that time demonstrated some wall thickening distally suggestive of inflammation or reflecting chronic constipation. Remainder of the study was unremarkable. CT of the head was obtained in the emergency room at [facility] on 11/29 mistreating small vessel ischemic changes but no acute pathology. Hemoglobin has ranged from 8.6 on 09/12/16 to a high of 9.5 on 11/29/16 unavailable values since August. On examination the patient is slightly agitated and has mumbled speech. There appears to be flattening of the right nasolabial fold but this may be a positional finding. Cardiac exam regular, breath sounds are clear although inspiratory effort is poor Abdomen benign and without palpable mass EKG reviewed by myself-right bundle branch block. Monitor hemoglobin overnight. Has had colonoscopy within the past 10 years and family interested in nonoperative management. Discussed with the ER provider, coordinator [facility] unit, patient's son Dez who is DPOA. Discussed with Mary Caban APRN who cares for the patient at [facility]. Outpatient/prior records reviewed. Hospital Course Summary Disclaimer: The visit summary below is not to be considered part of the above Progress Note.
[2016-12-02 18:38] VITALS: BMI 18.8
[2016-12-02] MEDS ORDERED: ACETAMINOPHEN 325 MG TABLET PO PRN (18:48)
[2016-12-02] MEDS ORDERED: LORATADINE 10 MG TABLET PO PRN (18:48)
[2016-12-02] MEDS ORDERED: MINERAL OIL PO PRN (18:48)
[2016-12-02] MEDS ORDERED: ATORVASTATIN 40 MG TABLET PO SCH (21:00)
[2016-12-02] MEDS: REFRESH CLASSIC Eye Drops 0.4ml EACH EYE SCH (21:18)
[2016-12-02] MEDS: DOCUSATE SODIUM 100 MG CAPSULE PO SCH (21:20)
[2016-12-03 00:31] VITALS: O2SAT 98
[2016-12-03] MEDS: LORazepam 0.5 MG TABLET PO PRN ×2 (00:53→04:59)
[2016-12-03] MEDS ORDERED: HALOPERIDOL 5 MG/ML INJECTION IVP PRN (05:57)
[2016-12-03] MEDS ORDERED: FERROUS SULFATE 324 MG TABLET PO SCH (08:00)
[2016-12-03] MEDS ORDERED: POLYETHYL GLYCOL 3350 17gm PACKET PO SCH (09:00)
[2016-12-03] MEDS ORDERED: AMLODIPINE 5 MG TABLET PO SCH (09:00)
[2016-12-03] MEDS ORDERED: QUETIAPINE 25 MG TABLET PO SCH (09:00)
[2016-12-03] MEDS ORDERED: SERTRALINE 25 MG TABLET PO SCH (09:00)
[2016-12-03] MEDS ORDERED: INDAPAMIDE 2.5 MG TABLET PO SCH (09:00)
[2016-12-03 09:15] VITALS: BP 135/67; PULSE 72; RESP 16; TEMP 96.2
[2016-12-03] MEDS ORDERED: LORazepam 0.5 MG TABLET PO PRN (10:45)
--- NOTE | 2016-12-03 12:01 | Discharge Instructions ---
Discharge Plan - Med Rec/Dispo Referrals/Follow Up: Tamara Anand DO [Family Provider] - (After discharge [facility] ) Jing Instructions: Anemia (GEN) Prescriptions: Continue Sertraline HCl [Zoloft] 25 mg PO DAILY Loratadine [Claritin] 10 mg PO DAILY PRN PRN Reason: Prn Orders Acetaminophen [Tylenol] 650 mg PO Q4HPRN PRN PRN Reason: Pain Docusate Sodium [Colace] 200 mg PO BID Quetiapine [Seroquel] 12.5 mg PO DAILY LORazepam [Ativan] 0.5 mg PO Q4HPRN PRN PRN Reason: Anxiety Polyethylene Glycol 3350 [Miralax] 17 gm PO DAILY Ferrous Sulfate [Feosol] 325 mg PO DAILY Atorvastatin [Lipitor] 40 mg PO HS Amlodipine [Norvasc] 5 mg PO DAILY Mineral Oil Oral Liq [Mineral Oil] 30 ml PO TID PRN PRN Reason: Constipation Dextran 70/Hypromellose [Artificial Tears Eye Drops] 1 drop OP TID Indapamide [Lozol] 2.5 mg PO DAILY - Disposition 63 To [facility]
[2016-12-03] MEDS: REFRESH CLASSIC Eye Drops 0.4ml EACH EYE SCH (12:26)
[2016-12-03] MEDS: DOCUSATE SODIUM 100 MG CAPSULE PO SCH (12:26)
[2016-12-03] MEDS: LORATADINE 10 MG TABLET PO PRN ×2 (12:27→12:35)
--- NOTE | 2016-12-03 12:50 | Discharge Summary ---
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 He is brought into the emergency room for clearance to the [facility] due to increasing behaviors. In clearing him for the [facility], he was found to have a hemoglobin of 8.0. His previous hemoglobin was 10/07/16 was 9.2. There is no indication as to why he is anemic. He has a normocytic anemia. His CMP shows his potassium to be low at 3.2, calcium 7.7. TSH 1.34. Urinalysis was negative. EKG normal sinus rhythm with a right bundle branch block. Patient was interviewed while in the emergency room. He is alert and oriented only to himself. The ER nurse reports that he has been pleasant and cooperative , but likes to wander. He denies any complaints. He is unable to give any history due to his dementia. All information is gathered from his chart. It does appear that he was previously started on ferrous sulfate 10/08/16 along with vitamin D 50,000 international units weekly. On further review of previous labs from 10/07/16, his iron level was low at 52 (normal 65-175). His iron binding capacity, percent saturation, and unbound iron levels were all within normal limits. His vitamin D level was 19. Objective Vital signs: Temperature 96.2 F L 12/03/16 08:00 Pulse Rate 72 12/03/16 08:00 Respiratory Rate 16 12/03/16 08:00 Blood Pressure 135/67 10/03/17 08:00 Pulse Oximetry 98 12/03/16 08:00 Height/Weight/BMI: Height 1.83 m Weight 61.2 kg Body Mass Index 18.8 - Constitutional Present: well nourished, well developed - Routine HEENT Exam ENT: Present: mucous membranes moist - Routine Respiratory Exam Present: CTA bilaterally. Absent: wheezes - Routine Cardiovascular Exam Present: RRR. Absent: murmur - Routine Abdominal Exam Present: soft, normoactive bowel sounds, non distended. Absent: tenderness - Routine Extremities Exam Present: no edema, normal capillary refill - Routine Skin Exam Present: dry, warm - Routine Neurological Exam Present: alert. Absent: oriented X3 - Routine Lymphatic Exam Lymphatic: Absent: adenopathy - Routine Psychiatric Exam Present: normal affect, cooperative Hospital Course This is a general summary of the patient's hospital course. For more details refer to the complete medical record. Hospital course: Patient was admitted through the emergency department due to hemoglobin of 8.0. He was originally going to be admitted to the [facility], but due to the low hemoglobin, he was observed on the medical floor. Other than his behavior related to his dementia, there were no concerns. He was given a dose of Haldol 5 mg IV overnight due to escalation of his behavior including kicking, hitting and attempting to bite staff. Repeat hemoglobin this morning was 9.4. He continues to be stable, and thus will be discharged to the [facility] today. He was given a dose of potassium yesterday will be given another dose today given his hypokalemia. On admission his potassium was 3.2. Today it was 3.5. Discharge Plan - Med Rec/Dispo Referrals/Follow Up: Tamara Anand DO [Family Provider] - (After discharge [facility] ) Jing Instructions: Anemia (GEN) Prescriptions: Continue Sertraline HCl [Zoloft] 25 mg PO DAILY Loratadine [Claritin] 10 mg PO DAILY PRN PRN Reason: Prn Orders Acetaminophen [Tylenol] 650 mg PO Q4HPRN PRN PRN Reason: Pain Docusate Sodium [Colace] 200 mg PO BID Quetiapine [Seroquel] 12.5 mg PO DAILY LORazepam [Ativan] 0.5 mg PO Q4HPRN PRN PRN Reason: Anxiety Polyethylene Glycol 3350 [Miralax] 17 gm PO DAILY Ferrous Sulfate [Feosol] 325 mg PO DAILY Atorvastatin [Lipitor] 40 mg PO HS Amlodipine [Norvasc] 5 mg PO DAILY Mineral Oil Oral Liq [Mineral Oil] 30 ml PO TID PRN PRN Reason: Constipation Dextran 70/Hypromellose [Artificial Tears Eye Drops] 1 drop OP TID Indapamide [Lozol] 2.5 mg PO DAILY - Disposition 63 To [facility] <Raya Loyola - Last Filed: 12/03/16 16:47> Discharge Information Date of admission: 12/02/16 18:01 Attending Physician: Raya Loyola MD Primary care physician: Tamara Anand DO Consults: 12/02/16 18:58 Dietary Consult [CONS] Routine Comment: Reason For Exam: 12/02/16 19:36 Case Management Consult [CONS] Routine Reason For Exam: - Discharge Diagnosis (1) Dementia Status: Acute - Laboratory Labs: 12/03/16 04:11 12/03/16 04:11 Objective Vital signs: Temperature 96.2 F L 12/03/16 08:00 Pulse Rate 72 12/03/16 08:00 Respiratory Rate 16 12/03/16 08:00 Blood Pressure 135/67 12/03/16 08:00 Pulse Oximetry 98 12/03/16 08:00 Height/Weight/BMI: Height 1.83 m Weight 61.2 kg Body Mass Index 18.8 Hospital Course This is a general summary of the patient's hospital course. For more details refer to the complete medical record. Hospital course: I have independently evaluated and examined this patient. I reviewed the chart, the patient's history, and the BUS TROLLEY AND TAXI INSTRUCTOR/PA's documented findings as above. We discussed and formulated the assessment and plan as above with additions as below: Ramon was seen shortly after awakening late this morning. He was ambulating with nursing at his side due to his impulsivity and poor balance. Speech was mumbled but he denied dyspnea or pain. Respirations were nonlabored with decreased airflow but clear breath sounds, cardiac rhythm regular. Patient could not identify current location or year. Repeat hemoglobin 9.4-consistent with recent values. Suspect value of 8.0 yesterday was erroneous. Primary care provider updated, discussed with generations coordinator-patient will transfer to [facility] as initially planned. Discharge Plan - Med Rec/Dispo
== END 2016-12-03 13:00 ==
LOC: ED 13:36 → MED 13:36
PROVIDERS: ADMIT Internal Medicine; ATTEND Internal Medicine

== ENCOUNTER 2016-12-03 12:33 | Inpatient (IN) ==
--- OUTSIDE RECORDS SUMMARY | 2016-12-03 13:13 | External Medical Summary ---
[...] Medications Results No Known Results Summary Purpose [employer] Submission
--- OUTSIDE RECORDS SUMMARY | 2016-12-03 13:13 | External Medical Summary ---
[...] Status Dosage System Date Date Namenda [facility] [address]-25 5 MG Orally May 01 tablet Twice a day 2012 Atorvastatin [facility] 41898735186 40 MG TAKE ONE Calcium TABLET BY MOUTH EVERY DAY FOR 90 DAYS Enalapril [facility] [address]-67 10 MG Orally qD Oct 17 TABLET Maleate 2008 Amlodipine [facility] [address]-97 5 mg Orally 1 tablet Besylate Once a day Indapamide [facility] [address]-71 2.5 MG ORAL qD Feb 05 (one) 2003 TABLET qD Procedures Procedure Coding System Code Date OFFICE VISITEST PT CPT-4 02725 Apr 25, 2014 Vital Signs Date/Time: Apr 25, 2014 Blood Pressure Systolic 124 mm Hg Height 70.25 in Weight 172.8 lbs BMI 24.62 Index Cardiac Monitoring Heart Rate 80 /min Blood Pressure Diastolic 80 mm Hg Results No Known Results Summary Purpose [employer] Submission
--- OUTSIDE RECORDS SUMMARY | 2016-12-03 13:13 | External Medical Summary ---
[...] Date End Date Status Dosage Namenda XR [facility] [address] 28 MG Orally Once September 06, 1 capsule 8-33 a day 2014 Results No Known Results Summary Purpose [employer] Submission
--- OUTSIDE RECORDS SUMMARY | 2016-12-03 13:13 | External Medical Summary ---
:1930 Author Organization [employer] [facility] Care Team Providers Name Role Phone Lenin [...] Fee 18yrs and up 1st injection CPT-4 60745 Nov 21, 2014 TB TUBERSOL CPT-4 45013 Nov 21, 2014 Mantoux Intradermal CPT-4 58329 Nov 21, 2014 Results No Known Results Immunizations Vaccine Administration Date Mantoux Intradermal Nov 21, 2014 Summary Purpose [employer] Submission
--- OUTSIDE RECORDS SUMMARY | 2016-12-03 13:13 | External Medical Summary ---
:1930 Author Organization [facility]Clinical[facility]iberna Care Team Providers Name Role Phone Lenin [...] Medications Results No Known Results Summary Purpose [facility].itinicalHiberna Submission
--- OUTSIDE RECORDS SUMMARY | 2016-12-03 13:13 | External Medical Summary ---
[...] End Status Dosage System Date Date Indapamide [facility] [address]-57 2.5 MG ORAL qD Feb 05, (one) 2003 TABLET qD Namenda XR [facility] [address]-26 28 MG Orally September 06, 1 capsule Once a day 2014 Atorvastatin [facility] 92305018573 40 MG TAKE ONE Calcium TABLET BY MOUTH EVERY DAY FOR 90 DAYS Enalapril [facility] [address]-89 10 MG Orally qD Oct 17, 1 TABLET Maleate 2008 Amlodipine [facility] 22362123999 5 MG TAKE ONE Besylate TABLET BY MOUTH EVERY DAY Procedures Procedure Coding System Code Date Administration Fee 18yrs and up 1st injection CPT-4 96287 Nov 02, 2014 TB TUBERSOL CPT-4 01232 Nov 02, 2014 Mantoux Intradermal CPT-4 02798 Nov 02, 2014 OFFICE VISITEST PT CPT-4 70457 Nov 02, 2014 Vital Signs Date/Time: Nov 02, 2014 Blood Pressure Systolic 124 mm Hg Height 70.25 in Weight 159.0 lbs BMI 22.65 Index Cardiac Monitoring Heart Rate 78 /min Temperature 98.5 F Blood Pressure Diastolic 80 mm Hg Results No Known Results Immunizations Vaccine Administration Date Mantoux Intradermal Nov 02, 2014 Summary Purpose eClinicalWorks Submission
--- OUTSIDE RECORDS SUMMARY | 2016-12-03 13:13 | External Medical Summary ---
:1930 Author Organization eClinicalEveryday.me Care Team Providers Name Role Phone Lenin [...] System Code Date MRI BRAIN W/WO CPT-4 86518 May 11, 2014 Results No Known Results Summary Purpose C[employer]vell[employer] Design[employer]Everyday.me Submission
--- OUTSIDE RECORDS SUMMARY | 2016-12-03 13:13 | External Medical Summary ---
[...] End Status Dosage System Date Date Namenda [facility] [address]-53 5 MG Orally May 1 tablet Twice a day 2012 Atorvastatin [facility] 79085230713 40 MG TAKE ONE Calcium TABLET BY MOUTH EVERY DAY FOR 90 DAYS Amlodipine [facility] [address]-59 5 mg Orally 1 tablet Besylate Once a day Enalapril [facility] [address]-95 10 MG Orally qD Oct 17 TABLET Maleate 2008 Indapamide [facility] [address]-74 2.5 MG ORAL qD Feb 05 (one) 2004 TABLET qD Procedures Procedure Coding System Code Date VITAMIN B1 THIAMIN L CPT-4 28751 August 22, 2014 OFFICE VISITEST PT CPT-4 43911 August 22, 2014 CBC CPT-4 32144 August 22, 2014 Vital Signs Date/Time: August 22, 2014 Blood Pressure Systolic 124 mm Hg Height 70.25 in Weight 165.0 lbs BMI 23.50 Index Cardiac Monitoring Heart Rate 78 /min Blood Pressure Diastolic 76 mm Hg Results No Known Results Summary Purpose eClinicalWorks Submission
--- OUTSIDE RECORDS SUMMARY | 2016-12-03 13:14 | External Medical Summary ---
[...] System Code Date MRI BRAIN W/WO CPT-4 61211 Nov 29, 2015 Results No Known Results Summary Purpose SparkBaseinicalnetomat Submission
--- OUTSIDE RECORDS SUMMARY | 2016-12-03 13:14 | External Medical Summary ---
:1930 Author Organization [facility] Care Team Providers Name Role Phone Lenin [...] Medications Results No Known Results Summary Purpose [employer]X [employer]inicalEneedo Submission
--- OUTSIDE RECORDS SUMMARY | 2016-12-03 13:14 | External Medical Summary ---
:1930 Author Organization [facility]Clinicalcitibuddies Care Team Providers Name Role Phone Lenin [...] Medications Results No Known Results Summary Purpose InLive Interactiveinicalcitibuddies Submission
--- OUTSIDE RECORDS SUMMARY | 2016-12-03 13:14 | External Medical Summary ---
:1930 Author Organization [facility]Clinical[facility]ive[facility] Care Team Providers Name Role Phone Lenin [...] Medications Results No Known Results Summary Purpose ArdelyxinicalViveve Submission
--- OUTSIDE RECORDS SUMMARY | 2016-12-03 13:14 | External Medical Summary ---
:1930 Author Organization eClinicalSpace Pencil Care Team Providers Name Role Phone Lenin [...] Medications Results No Known Results Summary Purpose [employer]Taxi [employer]iain[employer] Pencil Submission
--- OUTSIDE RECORDS SUMMARY | 2016-12-03 13:14 | External Medical Summary ---
[...] End Status Dosage System Date Date Enalapril [facility] [address]-83 10 MG Orally qD Oct 17, TABLET Maleate 2008 Indapamide [facility] [address]-66 2.5 MG ORAL qD Feb 05, (one) 2003 TABLET qD Amlodipine [facility] 81275323168 5 MG TAKE ONE Besylate TABLET BY MOUTH EVERY DAY Atorvastatin [facility] 85899466392 40 MG TAKE ONE Calcium TABLET BY MOUTH EVERY DAY FOR 90 DAYS Namenda XR [facility] [address]-46 28 MG Orally September 06, 1 capsule Once a day 2014 Procedures Procedure Coding System Code Date OFFICE VISITEST PT CPT-4 45506 September 20, 2014 Vital Signs Date/Time: September 20, 2014 Blood Pressure Systolic 112 mm Hg Height 70.25 in Weight 157.0 lbs BMI 22.36 Index Cardiac Monitoring Heart Rate 78 /min Temperature 98.0 F Blood Pressure Diastolic 74 mm Hg Results No Known Results Summary Purpose eClinicalWorks Submission
--- OUTSIDE RECORDS SUMMARY | 2016-12-03 13:14 | External Medical Summary ---
[...] End Status Dosage System Date Date Indapamide [facility] 55902430644 2.5 MG TAKE 1 TABLET BY MOUTH EVERY DAY Daquan [facility] [address]-01 Orally as Multivitamin directed for Men Amlodipine [facility] 10175320139 5 MG TAKE 1 Besylate TABLET BY MOUTH EVERY DAY Namenda XR [facility] [address]-32 28 MG Orally September 06, 1 capsule Once a day 2014 Enalapril [facility] [address]-82 10 MG Orally qD Oct 17, 1 TABLET Maleate 2008 Atorvastatin [facility] 66514064812 40 MG TAKE 1 Calcium TABLET BY MOUTH EVERY DAY Procedures Procedure Coding System Code Date COMP PROFILE CPT-4 54209 September 20, 2015 OFFICE VISITEST PT CPT-4 80817 September 20, 2015 CBC CPT-4 25717 September 20, 2015 Vital Signs Date/Time: September 20, 2015 Blood Pressure Systolic 122 mm Hg Height 70.25 in Weight 144.0 lbs BMI 20.51 Index Cardiac Monitoring Heart Rate 78 /min Temperature 98.2 F Blood Pressure Diastolic 80 mm Hg Results Name Result Date Reference Range Unit Abnormality Flag CBC ----MCV 95.1 20150920 80.0-94.0 FL H ----HCT 35.1 20150920 39.0-49.0 % L ----MCHC 32.5 [id number] 32.0-36.0 G/DL ----MCH 30.9 [id number] 26.0-32.0 PG ----EO# 0.1 [id number] 0.0-0.2 X10^3/UL ----PLT 234 [id number] 130-400 X10^3 ----EO% 1.4 [id number] 0.0-3.0 % ----RDW 13.3 [id number] 11.5-15.5 % ----MO# 0.5 [id number] 0.1-0.6 X10^3/UL ----MO% 5.6 [id number] 1.7-9.3 % ----LY# 1.7 [id number] 1.2-3.4 X10^3/UL ----BA# 0.1 [id number] 0.0-0.1 X10^3/UL ----BA% 0.6 [id number] 0.0-1.0 % ----HGB 11.4 [id number] 13.8-17.0 G/DL L ----RBC 3.69 [id number] 4.50-5.70 X10^6 L ----MPV 11.4 [id number] 9.0-12.1 FL ----WBC 8.5 [id number] 4.0-10.0 X10^3/UL ----NE% 72.1 [id number] 42.2-75.2 % ----NE# 6.1 [id number] 1.4-6.5 X10^3/UL ----LY% 20.2 [id number] 20.5-51.1 % L COMPREHENSIVE CHEM PROFILE ----SODIUM 146 [id number] 133-145 MMOL/L H ----TOTAL BILI 0.23 [id number] 0.00-1.00 MG/DL ----CHLORIDE 101 [id number] 96-108 MMOL/L ----POTASSIUM 3.5 [id number] 3.3-5.1 MMOL/L ----CALCIUM 9.6 [id number] 8.7-10.3 MG/DL ----AST/SGOT 28 [id number] 5-40 U/L ----CO2 33 [id number] 23-31 MMOL/L H ----TOTAL PROTEIN 7.1 [id number] 5.9-8.4 G/DL ----eGFR If Am 77 [id number] >60 ml/min/1.73m^ 2 ----ALBUMIN 4.3 [id number] 3.2-5.2 G/DL ----eGFR If Non 63 [id number] >60 ml/min/1.73m^ Am 2 ----BUN 30 31687399 8-23 MG/DL H ----ALT/SGPT 35 53290947 5-40 U/L ----ALK PHOS 87 [id number] 34-114 U/L ----CREATININE 1.1 [id number] 0.5-1.2 MG/DL ----GLUCOSE 135 [id number] 60-99 MG/DL H ----GLOBULIN 2.8 [id number] 2.0-4.4 G/DL Summary Purpose eClinicalWorks Submission
--- OUTSIDE RECORDS SUMMARY | 2016-12-03 13:14 | External Medical Summary ---
:1930 Author Organization [facility]ClinicalLocal[facility]ox Media Care Team Providers Name Role Phone Lenin [...] Procedure Coding System Code Date CREATININE CPT-4 18826 May 11, 2014 Results No Known Results Summary Purpose [facility]ClinicalLocal[employer]ox Media Submission
--- OUTSIDE RECORDS SUMMARY | 2016-12-03 13:14 | External Medical Summary ---
:1930 Author Organization [employer]ClinicalGalvanize Ventures Care Team Providers Name Role Phone Lenin [...] Medications Results No Known Results Summary Purpose [employer]inicalGalvan[employer]ures Submission
--- OUTSIDE RECORDS SUMMARY | 2016-12-03 13:14 | External Medical Summary ---
:1930 Author Organization [facility] Care Team Providers Name Role Phone Lenin [...] Medications Results No Known Results Summary Purpose EventpiginicalCerus Endovascular Submission
--- OUTSIDE RECORDS SUMMARY | 2016-12-03 13:14 | External Medical Summary ---
:1930 Author Organization [facility]Clinical[facility] Care Team Providers Name Role Phone Lenin [...] Medications Results No Known Results Summary Purpose [employer] ChargeinicalReorg Research Submission
--- OUTSIDE RECORDS SUMMARY | 2016-12-03 13:14 | External Medical Summary ---
:1930 Author Organization eClinicalBindHQ Care Team Providers Name Role Phone Lenin [...] Medications Results No Known Results Summary Purpose Spreadtrum CommunicationsinicalBindHQ Submission
--- OUTSIDE RECORDS SUMMARY | 2016-12-03 13:14 | External Medical Summary ---
[...] End Status Dosage System Date Date Atorvastatin [facility] 14132787826 40 MG TAKE ONE Calcium TABLET BY MOUTH EVERY DAY FOR [address] [facility] [address]-39 2.5 MG ORAL qD Feb 05 (one) 2003 TABLET qD Namenda [facility] [address]-87 5 MG Orally May 1 tablet Twice a day [address] [facility] [address]-43 5 mg Orally 1 tablet Besylate Once a day Enalapril [facility] [address]-82 10 MG Orally qD Oct 17, TABLET Maleate 2008 Procedures Procedure Coding System Code Date COMP PROFILE CPT-4 28743 Apr 07, 2014 T4 CPT-4 40203 Apr 07, 2014 CBC CPT-4 45782 Apr 07, 2014 URINALYSIS CPT-4 37036 Apr 07, 2014 TSH CPT-4 76925 Apr 07, 2014 URINE CULTURE CPT-4 20354 Apr 07, 2014 OFFICE VISITEST PT CPT-4 66506 Apr 07, 2014 Vital Signs Date/Time: Apr 07, 2014 Blood Pressure Systolic 122 mm Hg Height 70.25 in Weight 173.4 lbs Oximetry 98 % Cardiac Monitoring Heart Rate 65 /min Temperature 97.6 F Blood Pressure Diastolic 82 mm Hg BMI 24.70 Index Results No Known Results Summary Purpose eClinicalWorks Submission
--- OUTSIDE RECORDS SUMMARY | 2016-12-03 13:14 | External Medical Summary ---
:1930 Author Organization eClinicalH5 Care Team Providers Name Role Phone Lenin [...] Medications Results No Known Results Summary Purpose L'ArcoBalenoinicalH5 Submission
--- OUTSIDE RECORDS SUMMARY | 2016-12-03 13:14 | External Medical Summary ---
[...] End Status Dosage System Date Date Indapamide [facility] [address]-62 2.5 MG ORAL qD Feb 05 (one) 2003 TABLET qD Amlodipine [facility] [address]-80 5 mg Orally 1 tablet Besylate Once a day Namenda [facility] [address]-18 5 MG Orally May 01 tablet Twice a day 2012 Enalapril [facility] [address]-34 10 MG Orally qD Oct 17 TABLET Maleate 2008 Atorvastatin [facility] 67379420766 40 MG TAKE ONE Calcium TABLET BY MOUTH EVERY DAY FOR 90 DAYS Procedures Procedure Coding System Code Date OFFICE VISITEST PT CPT-4 76719 August 31, 2014 Vital Signs Date/Time: August 31, 2014 Blood Pressure Systolic 110 mm Hg Height 70.25 in Weight 162.0 lbs BMI 23.08 Index Cardiac Monitoring Heart Rate 78 /min Blood Pressure Diastolic 80 mm Hg Results No Known Results Summary Purpose eClinicalWorks Submission
--- OUTSIDE RECORDS SUMMARY | 2016-12-03 13:14 | External Medical Summary ---
[...] [facility] [address]-41 5 MG Orally May 1 tablet Twice a day 2012 E[address]april [facility] [address]-64 10 MG Orally qD Oct 17 TABLET Maleate 2008 Atorvastatin [facility] 04324501449 40 MG TAKE ONE Calcium TABLET BY MOUTH EVERY DAY FOR 90 DAYS Amlodipine [facility] [address]-13 5 mg Orally 1 tablet Besylate Once a day Indapamide [facility] [address]-36 2.5 MG ORAL qD Feb 05 (one) 2003 TABLET qD Procedures Procedure Coding System Code Date COMP PROFILE CPT-4 60593 June 08, 2014 OFFICE VISITEST PT CPT-4 21521 June 08, 2014 CBC CPT-4 11257 June 08, 2014 Vital Signs Date/Time: June 08, 2014 Blood Pressure Systolic 124 mm Hg Height 70.25 in Weight 168.0 lbs BMI 23.93 Index Temperature 98.4 F Blood Pressure Diastolic 76 mm Hg Results No Known Results Summary Purpose eClinicalWorks Submission
--- OUTSIDE RECORDS SUMMARY | 2016-12-03 13:14 | External Medical Summary ---
:1930 Author Organization eClinicalTsukulink Care Team Providers Name Role Phone Lenin [...] Medications Results No Known Results Summary Purpose [employer] SAinicalTsukulink Submission
--- OUTSIDE RECORDS SUMMARY | 2016-12-03 13:14 | External Medical Summary ---
[...] End Status Dosage System Date Date Atorvastatin [facility] 17897848332 40 MG TAKE 1 Calcium TABLET BY MOUTH EVERY DAY Amlodipine [facility] 21176897466 5 MG TAKE 1 Besylate TABLET BY MOUTH EVERY DAY Namenda XR [facility] [address]-67 28 MG Orally September 06, 1 capsule Once a day 2014 Enalapril [facility] [address]-29 10 MG Orally qD Oct 17, 1 TABLET Maleate 2009 Daquan [facility] [address]-99 Orally as Multivitamin directed for Men Indapamide [facility] 35657247529 2.5 MG TAKE 1 TABLET BY MOUTH EVERY DAY Procedures Procedure Coding System Code Date CBC CPT-4 08682 Nov 24, 2015 COMP PROFILE CPT-4 30534 Nov 24, 2015 AMYLASE CPT-4 60532 Nov 24, 2015 OFFICE VISITEST PT CPT-4 60203 Nov 24, 2015 Vital Signs Date/Time: Nov 24, 2015 Blood Pressure Systolic 122 mm Hg Height 70.25 in Weight 144.0 lbs BMI 20.51 Index Cardiac Monitoring Heart Rate 76 /min Temperature 98.4 F Blood Pressure Diastolic 80 mm Hg Results No Known Results Summary Purpose eClinicalWorks Submission
--- OUTSIDE RECORDS SUMMARY | 2016-12-03 13:14 | External Medical Summary ---
[...] End Status Dosage System Date Date Amlodipine [facility] [address]-90 5 mg Orally 1 tablet Besylate Once a day Atorvastatin [facility] 97905371115 40 MG TAKE ONE Calcium TABLET BY MOUTH EVERY DAY FOR [address] [facility] [address]-74 2.5 MG ORAL qD Feb 05, (one) 2003 TABLET qD Enalapril [facility] [address]-05 10 MG Orally qD Oct 17 TABLET Maleate [address] [facility] [address]-73 5 MG Orally May 1 tablet Twice a day 2012 Procedures Procedure Coding System Code Date OFFICE VISITEST PT CPT-4 58323 July 14, 2014 Vital Signs Date/Time: July 14, 2014 Blood Pressure Systolic 122 mm Hg Height 70.25 in Weight 165.6 lbs BMI 23.59 Index Cardiac Monitoring Heart Rate 78 /min Temperature 98.3 F Blood Pressure Diastolic 80 mm Hg Results No Known Results Summary Purpose eClinicalWorks Submission
--- OUTSIDE RECORDS SUMMARY | 2016-12-03 13:15 | External Medical Summary ---
[...] Medications Results No Known Results Summary Purpose 3NodinicalWorks Submission
--- OUTSIDE RECORDS SUMMARY | 2016-12-03 13:15 | External Medical Summary ---
[...] Medications Results No Known Results Summary Purpose [employer] orthodox TechnologyinicalWorks Submission
--- OUTSIDE RECORDS SUMMARY | 2016-12-03 13:15 | External Medical Summary ---
[...] End Status Dosage System Date Date Enalapril [facility] [address]-04 10 MG Orally qD Oct 17 TABLET Maleate 2008 Namenda [facility] [address]-35 5 MG Orally May 1 tablet Twice a day 2012 Atorvastatin [facility] 74548530835 40 MG TAKE ONE Calcium TABLET BY MOUTH EVERY DAY FOR 90 DAYS Indapamide [facility] [address]-17 2.5 MG ORAL qD Feb 05 (one) 2003 TABLET qD Amlodipine [facility] [address]-90 5 mg Orally 1 tablet Besylate Once a day Procedures Procedure Coding System Code Date OFFICE VISITEST PT CPT-4 43853 May 03, 2014 Vital Signs Date/Time: May 03, 2014 Blood Pressure Systolic 122 mm Hg Height 70.25 in Weight 168.0 lbs BMI 23.93 Index Cardiac Monitoring Heart Rate 76 /min Blood Pressure Diastolic 74 mm Hg Results No Known Results Summary Purpose eClinicalWorks Submission
--- OUTSIDE RECORDS SUMMARY | 2016-12-03 13:15 | External Medical Summary ---
:1930 Author Organization eClinicalPixplit Care Team Providers Name Role Phone Lenin [...] Medications Results No Known Results Summary Purpose FundedByMeinicalPixplit Submission
--- OUTSIDE RECORDS SUMMARY | 2016-12-03 13:15 | External Medical Summary ---
:1930 Author Organization eClinicalPathoQuest Care Team Providers Name Role Phone Lenin [...] Medications Results No Known Results Summary Purpose [employer]CureinicalPathoQuest Submission
[2016-12-03] MEDS: HALOPERIDOL 5 MG/ML INJECTION IVP PRN (14:00)
--- NOTE | 2016-12-03 14:11 | 24 Hour Neuropsychiatic Eval ---
Date of Admission: 12/03/16 13:31 Chief complaint: "It hurts" (points to stomach) History of Present Illness: Patient is an 86-year-old male who was admitted to [facility] on 12/02 (at first medically due to concern over anemia) and then transferred to [facility] on 12/03 once medically stabilized. Patient lives with in [place] at [facility] and has reportedly been resistive with ADL cares and physically aggressive with , staff and other residents over the last 2 weeks. He reportedly is impulsive and has had frequent falls. No reported change in appetite. Reportedly sleeps during the day but has difficulty sleeping at night. Patient was previously diagnosed with dementia as well as HTN and HLD. A facility [employer] started patient on Seroquel on 11/27 to address behaviors. DPOA is son Allan Patricio. Patient is quite sedated on interview after receiving PRNs on medical floor. He whispers only yes/no and is not able to meaningfully participate in interview. He does state "it hurts" and points to his abdomen. Dementia: Memory Impairment, Other (Aggression, insomnia) [facility] Patient Stated Medical History Dementia Yes Hypertension Yes Other Cardiology Yes: Hyperlipidemia Other GI Yes: Constipation Surgical History: Colonoscopy by Dr. 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 Family History: Unobtainable from patient - will discuss with family - Social History Smoking status: Unknown if ever smoked (Unobtainable from patient at this point - screen reports no substance use - will confirm with family) Substance use type: does not use Alcohol intake frequency: does not drink Current occupational status: retired Current residence: Assisted Living ([facility] [place] with ) Review of Systems ROS unobtainable: due to mental status - Psychiatric Psychiatric: Present: as per HPI, abnormal sleep pattern, behavioral changes, mood swings Mental Status Exam Height: 1.78 m Weight: 62.8 kg - Mental Status Exam Muscle Strength/Tone: Weak Dressing: Casual Grooming: Fair Attitude: Other (Sedated, unable to participate in interview) Motor Activity: Retardation Eye Contact: Other (Does not open eyes through interview) Speech: Slowed Volume: Soft Rhythm: Mumbled, Paucity of Language Orientation: Disoriented to time, Disoriented to place, Disoriented to situation , Oriented to person Mood: Neutral (Sedated), Other (Affect labile per LTC facility) Rate of Thoughts: Delayed Thought Organization: [place], Confused Associations: Illogical Abstract Reasoning: Impaired, concrete Thought Content: Somatic Concerns, Other (Poverty of thought suspected - will assess once less sedated) Perception/Psychotic: Other (Unable to assess currently) Language: Naming Impaired Fund of Knowledge: Poor fund of knowledge Memory: Poor-immediate, Poor-recent Suicidal Ideation: Other (Unable to assess) Homicidal Ideation: Other (Unable to assess) Insight: Impaired Judgement: Impaired Impulse Control: Poor Assessment and Plan (1) Major neurocognitive disorder Problem details: 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 Safety and elopement precautions in place. Continue home medications for the time being; monitor patient's mood and behavior. Obtain further collateral history from LTC facility, family. Will review labs and order the following if not done: CBC, CMP, TSH, UA, Vitamin B12 and folate levels, EKG. Will consider head CT. Will use standard unit PRNs for the time being - but patient is oversedated at this point from previous PRNs.
[2016-12-03 15:47] VITALS: BMI 19.8
[2016-12-03] MEDS ORDERED: HALOPERIDOL 5 MG/ML INJECTION IM PRN (15:47)
[2016-12-04] MEDS: LORazepam 0.5 MG TABLET PO PRN ×2 (09:39→16:11)
--- NOTE | 2016-12-04 12:31 | History & Physical Report ---
<Raquel Laguna - Last Filed: 12/04/16 14:01> History of Present Illness Date: 12/04/16 Chief complaint: behavioral changes HPI: Patient is an 86-year-old male who resides at the [facility] in assisted living with his . He was brought into the emergency room 12/02/16 for clearance to the [facility] due to increasing behaviors. However, in clearing him for the unit, he was found to have a hemoglobin of 8.0. He was hospitalized on the medical unit overnight for this. The next morning he was found to have a hemoglobin of 9.4, and was transferred to the [facility]. While on the medical unit he was completely stable. There were no concerns other than some behavioral concerns overnight for which he was given Haldol. He did have a low potassium for which she was given 20 mEq of potassium on 12/02 and 12/03. Based on chart review, patient's iron level was found to be low at 52 on 10/07/16 and he was started the following day on ferrous sulfate. On admission he is on amlodipine and indapamide for high blood pressure, atorvastatin for hyperlipidemia, and Claritin as needed for allergy symptoms. Psych meds include quetiapine, sertraline and PRN lorazepam. He is on MiraLAX daily, PRN mineral oil, Colace twice a day for bowels. Dextran 70/hypromellose drops for dry eyes. Review of Systems ROS unobtainable: due to mental status All systems PM: 10-point ROS was reviewed, no additional remarkable complaints except (patient reports he has no complaints at this time.) PFSH Medical History Dementia with behavioral changes Hypokalemia Chronic anemia-iron deficiency Hypertension Hypercholesterolemia Constipation Vitamin D deficiency CKD stage II Surgical History: Colonoscopy by Dr. 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 PCP-Dr. Tamara Anand Medications Home Medications Medication Instructions Recorded Confirmed Type Acetaminophen [Tylenol] 650 mg PO Q4HPRN PRN 12/02/16 12/03/16 History Amlodipine [Norvasc] 5 mg PO DAILY 12/02/16 12/03/16 History Atorvastatin [Lipitor] 40 mg PO HS 12/02/16 12/03/16 History Dextran 70/Hypromellose 1 drop OP TID 12/02/16 12/03/16 History [Artificial Tears Eye Drops] Docusate Sodium [Colace] 200 mg PO BID 12/02/16 12/03/16 History Ferrous Sulfate [Feosol] 325 mg PO DAILY 12/02/16 12/03/16 History Indapamide [Lozol] 2.5 mg PO DAILY 12/02/16 12/03/16 History LORazepam [Ativan] 0.5 mg PO Q4HPRN PRN 12/02/16 12/03/16 History Loratadine [Claritin] 10 mg PO DAILY PRN 12/02/16 12/03/16 History Mineral Oil Oral Liq [Mineral Oil] 30 ml PO TID PRN 12/02/16 12/03/16 History Polyethylene Glycol 3350 [Miralax] 17 gm PO DAILY 12/02/16 12/03/16 History Quetiapine [Seroquel] 12.5 mg PO DAILY 12/02/16 12/03/16 History Sertraline HCl [Zoloft] 25 mg PO DAILY 12/02/16 12/03/16 History Allergies Allergy/AdvReac Type Severity Reaction Status Date / Time No Known Allergies Allergy Verified 12/02/16 13:53 Exam Vital Signs: Temperature 96.8 F 12/04/16 09:38 Pulse Rate 89 12/04/16 09:38 Respiratory Rate 16 12/04/16 09:38 Blood Pressure 110/65 12/04/16 09:38 Pulse Oximetry 98 12/04/16 09:38 Height/Weight/BMI: Height 1.78 m Weight 62.8 kg Body Mass Index 19.8 - Constitutional Present: no acute distress, well nourished, well developed - Routine HEENT Exam Eye: Present: EOMI. Absent: conjunctival icterus ENT: Present: mucous membranes moist, oropharynx clear, dentition normal - Routine Neck Exam Present: supple. Absent: carotid bruit - Routine Respiratory Exam Present: CTA bilaterally. Absent: wheezes - Routine Cardiovascular Exam Present: RRR, S1, S2. Absent: murmur - Routine Abdominal Exam Present: soft, normoactive bowel sounds, non distended. Absent: tenderness - Routine Extremities Exam Present: no edema, normal capillary refill - Routine Skin Exam Present: dry, warm - Routine Neurological Exam Present: alert. Absent: oriented X3 (oriented only to himself) - Routine Psychiatric Exam Present: cooperative. Absent: normal affect (flat affect) Results - Labs CBC & Chem 7: 12/03/16 19:03 12/03/16 19:03 - Imaging and Cardiology CT scan - abdomen Additional comments: CT abdomen pelvis performed 11/29 shows circumferential thickening of the vincent of the lower sigmoid and rectum with adjacent edema suggestive of active inflammation or chronic changes of constipation. CT scan - head Additional comments: CT head performed 11/29/16 shows small vessel ischemic changes in the periventricular and white matter-likely chronic. No acute changes. Chest x-ray Additional comments: Chest x-ray performed 11/29/16 was negative. Assessment and Plan (1) Dementia Current visit: No Status: Acute (2) Major neurocognitive disorder Problem details: Vascular etiology suspected, moderate to severe, with behavioral disturbance Current visit: Yes Status: Acute Assessment and Plan: Assessment Dementia with behavioral changes Hypokalemia Chronic anemia-iron deficiency Hypertension Hypercholesterolemia Constipation Vitamin D deficiency CKD stage II Plan Admission to [facility] for psychiatric med management by Dr. Hayes and to provide a safe environment. Give one 20 mEq dose of potassium today and will order Potassium chloride 10 mEq daily to start tomorrow as he will likely need this given that he is on the indapamide and has been hypokalemic since admission. Will need to follow BMPs periodically. Continue daily MiraLAX and give senna daily at bedtime for bowel regulation. Milk of magnesia and Dulcolax when necessary. Continue ferrous sulfate for chronic iron deficiency anemia and add in vitamin C to aid with absorption. Start vitamin D2 50,000 international units weekly 8 weeks then 1000 international units daily for vitamin D deficiency Follow CBC periodically to follow hemoglobin. Patient's care to return to Dr. Tamara Anand upon dismissal. Hospital Course Summary Disclaimer: The visit summary below is not to be considered part of the above Progress Note. Hospital Course: 12/04/16 Assessment Dementia with behavioral changes Hypokalemia Chronic anemia-iron deficiency Hypertension Hypercholesterolemia Constipation Vitamin D deficiency CKD stage II Plan Admission to [facility] for psychiatric med management by Dr. Hayes and to provide a safe environment. Give one 20 mEq dose of potassium today and will order Potassium chloride 10 mEq daily to start tomorrow as he will likely need this given that he is on the indapamide and has been hypokalemic since admission. Will need to follow BMPs periodically. Continue daily MiraLAX and give senna daily at bedtime for bowel regulation. Milk of magnesia and Dulcolax when necessary. Continue ferrous sulfate for chronic iron deficiency anemia and add in vitamin C to aid with absorption. Start vitamin D2 50,000 international units weekly 8 weeks then 1000 international units daily for vitamin D deficiency <Roseann Lu - Last Filed: 12/04/16 18:54> History of Present Illness Date: 12/04/16 [facility] Patient Stated Medical History Dementia Yes Hypertension Yes Other Cardiology Yes: Hyperlipidemia Other GI Yes: Constipation Exam Vital Signs: Temperature 96.6 F L 12/04/16 16:35 Pulse Rate 84 12/04/16 16:35 Respiratory Rate 16 12/04/16 16:35 Blood Pressure 145/59 H 12/04/16 16:35 Pulse Oximetry 100 12/04/16 16:35 Height/Weight/BMI: Height 1.78 m Weight 62.8 kg Body Mass Index 19.8 Results - Labs CBC & Chem 7: 12/03/16 19:03 12/03/16 19:03 Assessment and Plan (1) Dementia Current visit: No Status: Acute (2) Major neurocognitive disorder Problem details: Vascular etiology suspected, moderate to severe, with behavioral disturbance Current visit: Yes Status: Acute Assessment and Plan: 12/04/2016-I reviewed this chart, the patient history, and the [employer]'s/PA's documented findings as above. We discussed and formulated the assessment and plan as above with the additions below.-Dr. Lu The patient was seen in the day room sitting up in a chair. He denies any complaints. He specifically denies chest pain, shortness of breath or if Cold- Eeze with appetite. He states he's eating and drinking well. On exam he is alert and in no acute distress. Chest is clear to auscultation. Cardiovascular reveals regular rate and rhythm. Abdomen is soft and nontender. Extremities are free of edema. Skin is warm and dry. Lab from yesterday is reviewed and shows borderline low B-12 of 288. TSH and folate are normal. Lipid panel is pending. Assessment and plan Re: Borderline low B-12 level, start oral B-12 daily. Otherwise, I agree with assessment and care plan as dictated above. Repeat basic metabolic profile and CBC scheduled for 12/06/2016. Hospital Course Summary Disclaimer: The visit summary below is not to be considered part of the above Progress Note.
[2016-12-04] MEDS ORDERED: LORATADINE 10 MG TABLET PO PRN (13:57)
[2016-12-04] MEDS: POLYETHYL GLYCOL 3350 17gm PACKET PO SCH (15:50)
[2016-12-04] MEDS: ERGOCALCIFEROL 50,000 UNIT CAPSULE PO SCH (15:51)
[2016-12-04] MEDS: REFRESH CLASSIC Eye Drops 0.4ml EACH EYE SCH ×2 (15:51→19:50)
[2016-12-04] MEDS: HALOPERIDOL 0.5 MG TABLET PO PRN (18:01)
[2016-12-04] MEDS: SENNOSIDES 8.6 MG TABLET PO SCH (19:49)
[2016-12-04] MEDS: ATORVASTATIN 40 MG TABLET PO SCH (19:50)
--- NOTE | 2016-12-04 20:49 | Neuropsych Progress Note ---
[facility] Subjective Date: 12/04/16 - Sujective/Severity of Illness Medications: Acetaminophen (Tylenol) 650 mg PO Q4HPRN PRN PRN Reason: Pain Amlodipine Besylate (Norvasc) 5 mg PO DAILY [facility] Artificial Tears (Refresh Classic) 1 drop EACH EYE TID [facility] Last Admin: 12/04/16 19:50 Dose: 1 drop Ascorbic Acid (Vitamin C) 250 mg PO DAILY [facility] Atorvastatin Calcium (Lipitor) 40 mg PO HS [facility] Last Admin: 12/04/16 19:50 Dose: 40 mg Cyanocobalamin (Vit. B-12) 1,000 mcg PO DAILY [facility] Ergocalciferol (Vitamin D-2) 50,000 unit PO Q7D [facility] Last Admin: 12/04/16 15:51 Dose: 50,000 unit Ferrous Sulfate (Feosol) 324 mg PO DAILY [facility] Haloperidol (Haldol) 0.5 mg PO Q6H PRN PRN Reason: Extreme agitation Last Admin: 12/04/16 18:01 Dose: 0.5 mg Haloperidol Lactate (Haldol) 0.5 mg IVP Q6HR PRN Last Admin: 12/03/16 14:00 Dose: 0.5 mg Haloperidol Lactate (Haldol) 0.5 mg IM Q6H PRN PRN Reason: Extreme agitation Indapamide (Lozol) 2.5 mg PO DAILY [facility] Loratadine (Claritin) 10 mg PO DAILY PRN PRN Reason: PRN orders Lorazepam (Ativan Inj) 0.5 mg IVP Q6H PRN Last Admin: 12/03/16 14:00 Dose: 0.5 mg Lorazepam (Ativan) 0.5 mg PO Q6H PRN PRN Reason: Extreme agitation Last Admin: 12/04/16 16:11 Dose: 0.5 mg Lorazepam (Ativan Inj) 0.5 mg IM Q6H PRN PRN Reason: Extreme agitation Polyethylene Glycol (Miralax) 17 gm PO DAILY [facility] Last Admin: 12/04/16 15:50 Dose: 17 gm Potassium Chloride (K-Dur) 10 meq PO WB [facility] Risperidone (Risperdal) 0.5 mg PO HS [facility] Senna (Senna Lax) 17.2 mg PO HS [facility] Last Admin: 12/04/16 19:49 Dose: 17.2 mg Subjective: Patient seen and chart reviewed. Case discussed with treatment team. On interview, patient is calm and cooperative. He reports that his mood is good but has no insight into symptoms or hospitalization. He is oriented to self only. He reports that he feels well physically. Patient denies any SI, HI or AVH. Patient denies any adverse side effects related to psychotropic medications. Nursing staff report patient has been pleasant and cooperative through most of day, though he started to get more agitated in the late afternoon. He is restless at times and wants to walk to look for his but this escalated into more agitation. Ativan 0.5mg PO was effective in calming him. Patient slept 9 hours overnight. VSS. Patient is eating well. He is adherent with medications. Psychotropic PRNs required in the past 24 hours: Ativan 0.5mg PO x1 as above. I spoke with patient's son/SKYLER Lemus and discussed risks/benefits of antipsychotic use; he gave informed consent to begin antipsychotic to target agitation/aggression as reported by facility. Start Time: 16:40 Stop Time: 17:00 Mental Status Exam Vitals: Last Vital Signs Temp 96.6 F L 12/04/16 16:35 Pulse 84 12/04/16 16:35 Resp 16 12/04/16 16:35 BP 145/59 H 12/04/16 16:35 Pulse Ox 100 12/04/16 16:35 Height: 1.78 m Weight: 62.8 kg - Mental Status Exam Muscle Strength/Tone: Weak Dressing: Casual Grooming: Fair Attitude: Cooperative Motor Activity: Retardation Eye Contact: Other (Does not open eyes through interview) Speech: Slowed Volume: Soft Rhythm: Mumbled, Paucity of Language Orientation: Disoriented to time, Disoriented to place, Disoriented to situation , Oriented to person Mood: Neutral (Can become restless/agitated at times on unit), Other (Affect labile per LTC facility) Rate of Thoughts: Delayed Thought Organization: [place], Confused Associations: Illogical Abstract Reasoning: Impaired, concrete Thought Content: Somatic Concerns, Other (Poverty of thought suspected - will assess once less sedated) Perception/Psychotic: Other (Unable to assess currently) Language: Naming Impaired Fund of Knowledge: Poor fund of knowledge Memory: Poor-immediate, Poor-recent Suicidal Ideation: Denies Homicidal Ideation: Denies Insight: Impaired Judgement: Impaired Impulse Control: Poor - Laboratory Result Diagrams: 12/03/16 19:03 12/03/16 19:03 Laboratory Results - last 24 hr 12/03/16 19:03 Vitamin B12 288 Folate 4.9 Assessment and Plan (1) Major neurocognitive disorder Problem details: 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 Hospital Course: 12/04/16 Assessment Dementia with behavioral changes Hypokalemia Chronic anemia-iron deficiency Hypertension Hypercholesterolemia Constipation Vitamin D deficiency CKD stage II Plan Admission to [facility] for psychiatric med management by Dr. Hayes and to provide a safe environment. Give one 20 mEq dose of potassium today and will order Potassium chloride 10 mEq daily to start tomorrow as he will likely need this given that he is on the indapamide and has been hypokalemic since admission. Will need to follow BMPs periodically. Continue daily MiraLAX and give senna daily at bedtime for bowel regulation. Milk of magnesia and Dulcolax when necessary. Continue ferrous sulfate for chronic iron deficiency anemia and add in vitamin C to aid with absorption. Start vitamin D2 50,000 international units weekly 8 weeks then 1000 international units daily for vitamin D deficiency 12/04/16 Psych: Reviewed labs from admission. Plan to start Risperdal 0.5mg PO q HS to target irritability/agitation. Obtained informed consent from son/DPAMANDA Lemus.
[2016-12-04] MEDS: RisperiDONE 0.5 MG TABLET PO SCH (20:56)
[2016-12-05] MEDS: SENNOSIDES 8.6 MG TABLET PO SCH ×2 (02:15→21:00)
[2016-12-05] MEDS: ATORVASTATIN 40 MG TABLET PO SCH ×2 (02:15→20:58)
[2016-12-05] MEDS: REFRESH CLASSIC Eye Drops 0.4ml EACH EYE SCH ×4 (02:15→20:58)
[2016-12-05] MEDS: HALOPERIDOL 5 MG/ML INJECTION IVP PRN (02:50)
[2016-12-05] MEDS: ASCORBIC ACID 500 MG TABLET PO SCH (08:30)
[2016-12-05] MEDS: AMLODIPINE 5 MG TABLET PO SCH (08:31)
[2016-12-05] MEDS: FERROUS SULFATE 324 MG TABLET PO SCH (08:31)
[2016-12-05] MEDS: CYANOCOBALAMIN (B-12) 500mcg TABLET PO SCH (08:32)
[2016-12-05] MEDS: INDAPAMIDE 2.5 MG TABLET PO SCH (08:32)
[2016-12-05] MEDS: POLYETHYL GLYCOL 3350 17gm PACKET PO SCH (08:32)
[2016-12-05] MEDS: LORazepam 0.5 MG TABLET PO PRN (11:42)
[2016-12-05] MEDS: HALOPERIDOL 0.5 MG TABLET PO PRN (11:42)
[2016-12-05] MEDS: ACETAMINOPHEN 325 MG TABLET PO PRN (11:42)
--- NOTE | 2016-12-05 20:18 | Neuropsych Progress Note ---
[facility] Subjective Date: 12/05/16 - Sujective/Severity of Illness Medications: Acetaminophen (Tylenol) 650 mg PO Q4HPRN PRN PRN Reason: Pain Last Admin: 12/05/16 11:42 Dose: 650 mg Amlodipine Besylate (Norvasc) 5 mg PO DAILY [facility] Last Admin: 12/05/16 08:31 Dose: 5 mg Artificial Tears (Refresh Classic) 1 drop EACH EYE TID [facility] Last Admin: 12/05/16 17:35 Dose: 1 drop Ascorbic Acid (Vitamin C) 250 mg PO DAILY [facility] Last Admin: 12/05/16 08:30 Dose: 250 mg Atorvastatin Calcium (Lipitor) 40 mg PO HS [facility] Last Admin: 12/05/16 02:15 Dose: Not Given Cyanocobalamin (Vit. B-12) 1,000 mcg PO DAILY [facility] Last Admin: 12/05/16 08:32 Dose: 1,000 mcg Ergocalciferol (Vitamin D-2) 50,000 unit PO Q7D [facility] Last Admin: 12/04/16 15:51 Dose: 50,000 unit Ferrous Sulfate (Feosol) 324 mg PO DAILY [facility] Last Admin: 12/05/16 08:31 Dose: 324 mg Haloperidol (Haldol) 0.5 mg PO Q6H PRN PRN Reason: Extreme agitation Last Admin: 12/05/16 11:42 Dose: 0.5 mg Haloperidol Lactate (Haldol) 0.5 mg IVP Q6HR PRN Last Admin: 12/05/16 02:50 Dose: 0.5 mg Haloperidol Lactate (Haldol) 0.5 mg IM Q6H PRN PRN Reason: Extreme agitation Indapamide (Lozol) 2.5 mg PO DAILY [facility] Last Admin: 12/05/16 08:32 Dose: 2.5 mg Loratadine (Claritin) 10 mg PO DAILY PRN PRN Reason: PRN orders Lorazepam (Ativan Inj) 0.5 mg IVP Q6H PRN Last Admin: 12/05/16 02:50 Dose: 0.5 mg Lorazepam (Ativan) 0.5 mg PO Q6H PRN PRN Reason: Extreme agitation Last Admin: 12/05/16 11:42 Dose: 0.5 mg Lorazepam (Ativan Inj) 0.5 mg IM Q6H PRN PRN Reason: Extreme agitation Polyethylene Glycol (Miralax) 17 gm PO DAILY [facility] Last Admin: 12/05/16 08:32 Dose: 17 gm Potassium Chloride (K-Dur) 10 meq PO WB [facility] Last Admin: 12/05/16 08:31 Dose: 10 meq Risperidone (Risperdal) 0.5 mg PO HS [facility] Last Admin: 12/04/16 20:56 Dose: 0.5 mg Senna (Senna Lax) 17.2 mg PO [facility] Last Admin: 12/05/16 02:15 Dose: Not Given Subjective: Patient seen and chart reviewed. Case discussed with treatment team. On interview, patient is eating and responds only minimally to interview questions. He initially greets me and smiles at me once but otherwise does not answer any of my questions, focused on eating. Nursing staff report patient has been anxious and impulsive throughout the day today and grabbed a staff member who was attempting to help him at one point. Patient was given Haldol and Ativan PO this morning and was not able to calm down for ~2.5 hours afterwards, at which point he did take a nap. Patient may have spit out PRN medication - it was not clear to staff. Patient no longer has IV site to give medications.VSS. Patient is eating well. Start Time: 16:40 Stop Time: 17:00 Mental Status Exam Vitals: Last Vital Signs Temp 97.2 F 12/05/16 17:00 Pulse 89 12/05/16 17:00 Resp 16 12/05/16 17:00 BP 149/81 H 12/05/16 17:00 Pulse Ox 99 12/05/16 17:00 Height: 1.78 m Weight: 62.596 kg - Mental Status Exam Muscle Strength/Tone: Weak Dressing: Casual Grooming: Poor Attitude: Uncooperative (Pays little attention to me) Motor Activity: Retardation Eye Contact: Other (Virtually none) Speech: Slowed (Minimal) Volume: Soft Rhythm: Mumbled, Paucity of Language Orientation: Disoriented to time, Disoriented to place, Disoriented to situation , Oriented to person Mood: Neutral (Can become restless/agitated at times on unit), Other (Anxious/ restless throughout day) Rate of Thoughts: Delayed Thought Organization: [place], Confused Associations: Illogical Abstract Reasoning: Impaired, concrete Thought Content: Somatic Concerns, Other (Poverty of thought suspected) Perception/Psychotic: Other (Unable to assess currently) Language: Naming Impaired Fund of Knowledge: Poor fund of knowledge Memory: Poor-immediate, Poor-recent Suicidal Ideation: None Homicidal Ideation: None Insight: Impaired Judgement: Impaired Impulse Control: Poor - Laboratory Result Diagrams: 12/03/16 19:03 12/03/16 19:03 Laboratory Results - last 24 hr 12/03/16 19:03 Triglycerides 45 Cholesterol 119 L LDL Cholesterol, Calc 57.0 L VLDL Cholesterol 9.0 HDL Cholesterol 53 Cholesterol/HDL Ratio 2.2 Assessment and Plan (1) Major neurocognitive disorder Problem details: 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 Hospital Course: 12/04/16 Assessment Dementia with behavioral changes Hypokalemia Chronic anemia-iron deficiency Hypertension Hypercholesterolemia Constipation Vitamin D deficiency CKD stage II Plan Admission to [facility] for psychiatric med management by Dr. Hayes and to provide a safe environment. Give one 20 mEq dose of potassium today and will order Potassium chloride 10 mEq daily to start tomorrow as he will likely need this given that he is on the indapamide and has been hypokalemic since admission. Will need to follow BMPs periodically. Continue daily MiraLAX and give senna daily at bedtime for bowel regulation. Milk of magnesia and Dulcolax when necessary. Continue ferrous sulfate for chronic iron deficiency anemia and add in vitamin C to aid with absorption. Start vitamin D2 50,000 international units weekly 8 weeks then 1000 international units daily for vitamin D deficiency 12/04/16 Psych: Reviewed labs from admission. Plan to start Risperdal 0.5mg PO q HS to target irritability/agitation. Obtained informed consent from son/DPAMANDA Lemus. 12/05/16 Psych: Started Risperdal last night but patient has also had 2 antipsychotic PRNs in the past 24 hours. Monitor to ensure restlessness is not d /t akathisia. Unclear whether Risperdal has had any benefit -will continue to monitor as it was just started last night. Agitation seems slightly decreased from admission though restlessness still present. Monitor for pain as well.
[2016-12-05] MEDS: RisperiDONE 0.5 MG TABLET PO SCH (21:29)
[2016-12-06] MEDS: ASCORBIC ACID 500 MG TABLET PO SCH (11:14)
[2016-12-06] MEDS: AMLODIPINE 5 MG TABLET PO SCH (11:14)
[2016-12-06] MEDS: CYANOCOBALAMIN (B-12) 500mcg TABLET PO SCH (11:15)
[2016-12-06] MEDS: FERROUS SULFATE 324 MG TABLET PO SCH (11:15)
[2016-12-06] MEDS: INDAPAMIDE 2.5 MG TABLET PO SCH (11:15)
[2016-12-06] MEDS: POLYETHYL GLYCOL 3350 17gm PACKET PO SCH (11:16)
[2016-12-06] MEDS: REFRESH CLASSIC Eye Drops 0.4ml EACH EYE SCH ×3 (11:16→20:21)
[2016-12-06] MEDS: LORazepam 0.5 MG TABLET PO PRN (13:18)
[2016-12-06] MEDS: HALOPERIDOL 0.5 MG TABLET PO PRN (13:18)
--- NOTE | 2016-12-06 19:13 | Neuropsych Progress Note ---
[facility] Subjective Date: 12/06/16 - Sujective/Severity of Illness Medications: Acetaminophen (Tylenol) 650 mg PO Q4HPRN PRN PRN Reason: Pain Last Admin: 12/05/16 11:42 Dose: 650 mg Amlodipine Besylate (Norvasc) 5 mg PO DAILY [facility] Last Admin: 12/06/16 11:14 Dose: 5 mg Artificial Tears (Refresh Classic) 1 drop EACH EYE TID [facility] Last Admin: 12/06/16 15:51 Dose: 1 drop Ascorbic Acid (Vitamin C) 250 mg PO DAILY [facility] Last Admin: 12/06/16 11:14 Dose: 250 mg Cyanocobalamin (Vit. B-12) 1,000 mcg PO DAILY [facility] Last Admin: 12/06/16 11:15 Dose: 1,000 mcg Ergocalciferol (Vitamin D-2) 50,000 unit PO Q7D [facility] Last Admin: 12/04/16 15:51 Dose: 50,000 unit Ferrous Sulfate (Feosol) 324 mg PO DAILY [facility] Last Admin: 12/06/16 11:15 Dose: 324 mg Haloperidol (Haldol) 0.5 mg PO Q6H PRN PRN Reason: Extreme agitation Last Admin: 12/06/16 13:18 Dose: 0.5 mg Haloperidol Lactate (Haldol) 0.5 mg IVP Q6HR PRN Last Admin: 12/05/16 02:50 Dose: 0.5 mg Haloperidol Lactate (Haldol) 0.5 mg IM Q6H PRN PRN Reason: Extreme agitation Indapamide (Lozol) 2.5 mg PO DAILY [facility] Last Admin: 12/06/16 11:15 Dose: 2.5 mg Loratadine (Claritin) 10 mg PO DAILY PRN PRN Reason: PRN orders Lorazepam (Ativan Inj) 0.5 mg IVP Q6H PRN Last Admin: 12/05/16 02:50 Dose: 0.5 mg Lorazepam (Ativan) 0.5 mg PO Q6H PRN PRN Reason: Extreme agitation Last Admin: 12/06/16 13:18 Dose: 0.5 mg Lorazepam (Ativan Inj) 0.5 mg IM Q6H PRN PRN Reason: Extreme agitation Polyethylene Glycol (Miralax) 17 gm PO DAILY [facility] Last Admin: 12/06/16 11:16 Dose: 17 gm Potassium Chloride (K-Dur) 10 meq PO WB [facility] Last Admin: 12/06/16 11:13 Dose: 10 meq Risperidone (Risperdal) 0.5 mg PO [facility] Last Admin: 12/05/16 21:29 Dose: 0.5 mg Senna (Senna Lax) 17.2 mg PO [facility] Last Admin: 12/05/16 21:00 Dose: 17.2 mg Subjective: Patient seen and chart reviewed. Case discussed with treatment team. Patient is sleeping soundly at time of rounds after receiving IM Haldol and Ativan this afternoon for agitation, physical aggression, throwing water at staff. He is reportedly frequently restless and does not respond to redirection or cueing. Patient did sleep 6.75 hours overnight. VSS. Patient is eating well. I received a phone call from patient's son/DPOA this afternoon expressing concern that a family member visited and had difficulty waking the patient ( believed after he received IM medications.) It is unclear if Risperdal is helpful - will continue trial tonight and consider other options tomorrow pending symptoms (Depakote, Exelon patch). Start Time: 15:40 Stop Time: 16:00 Mental Status Exam Vitals: Last Vital Signs Temp 97.0 F 12/06/16 17:35 Pulse 71 12/06/16 17:35 Resp 16 12/06/16 17:35 BP 129/67 12/06/16 17:35 Pulse Ox 98 12/06/16 17:35 Height: 1.78 m Weight: 62.596 kg - Mental Status Exam Muscle Strength/Tone: Weak Dressing: Casual Grooming: Poor Attitude: Uncooperative (Pays little attention to me) Motor Activity: Retardation (at time of interview), Restless (frequently) Eye Contact: Other (Sleeping soundly after PRNs at time of rounds) Speech: Slowed (Minimal) Volume: Soft Rhythm: Mumbled, Paucity of Language Orientation: Disoriented to time, Disoriented to place, Disoriented to situation , Oriented to person Mood: Other (Unable to assess today as patient is sleeping soundly) Rate of Thoughts: Delayed Thought Organization: [place], Confused Associations: Illogical Abstract Reasoning: Impaired, concrete Thought Content: Other (Poverty of thought suspected) Perception/Psychotic: Other (Unable to assess currently) Language: Naming Impaired Fund of Knowledge: Poor fund of knowledge Memory: Poor-immediate, Poor-recent Suicidal Ideation: None Homicidal Ideation: None Insight: Impaired Judgement: Impaired Impulse Control: Poor - Laboratory Result Diagrams: 12/06/16 06:02 12/06/16 06:02 Laboratory Results - last 24 hr 12/06/16 12/06/16 06:02 06:02 WBC 6.4 RBC 3.20 L Hgb 9.4 L Hct 29.6 L MCV 92.5 MCH 29.4 MCHC 31.8 RDW Std Deviation 44.0 Plt Count 213 MPV 11.5 Immature Gran % (Auto) 0.2 Neut % (Auto) 72.4 H Lymph % (Auto) 19.5 L [place] % (Auto) 6.3 Eos % (Auto) 1.3 Baso % (Auto) 0.3 Neut # (Auto) 4.6 Lymph # (Auto) 1.2 [place] # (Auto) 0.4 Eos # (Auto) 0.1 Baso # (Auto) 0.0 Abs Immat Gran (auto) 0.01 Turbidity < 20 Sodium 139 Potassium 3.7 Chloride 100 Carbon Dioxide 31 H Anion Gap 8 BUN 19.0 Creatinine 0.9 GFR Calculation 80 BUN/Creatinine Ratio 21 Glucose 89 Calculated Osmolality 269 Calcium 9.1 Icterus Index < 2 Specimen Hemolysis < 15 Assessment and Plan (1) Major neurocognitive disorder Problem details: 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 Hospital Course: 12/04/16 Assessment Dementia with behavioral changes Hypokalemia Chronic anemia-iron deficiency Hypertension Hypercholesterolemia Constipation Vitamin D deficiency CKD stage II Plan Admission to [facility] for psychiatric med management by Dr. Hayes and to provide a safe environment. Give one 20 mEq dose of potassium today and will order Potassium chloride 10 mEq daily to start tomorrow as he will likely need this given that he is on the indapamide and has been hypokalemic since admission. Will need to follow BMPs periodically. Continue daily MiraLAX and give senna daily at bedtime for bowel regulation. Milk of magnesia and Dulcolax when necessary. Continue ferrous sulfate for chronic iron deficiency anemia and add in vitamin C to aid with absorption. Start vitamin D2 50,000 international units weekly 8 weeks then 1000 international units daily for vitamin D deficiency 12/04/16 Psych: Reviewed labs from admission. Plan to start Risperdal 0.5mg PO q HS to target irritability/agitation. Obtained informed consent from son/DPAMANDA Lemus. 12/05/16 Psych: Started Risperdal last night but patient has also had 2 antipsychotic PRNs in the past 24 hours. Monitor to ensure restlessness is not d /t akathisia. Unclear whether Risperdal has had any benefit -will continue to monitor as it was just started last night. Agitation seems slightly decreased from admission though restlessness still present. Monitor for pain as well. 12/06/16 Psych: Patient reportedly frequently restless, with aggression this afternoon. Decreased HS dose of atorvastatin from 40mg to 20mg. Continue Risperdal trial and reassess tomorrow. Will then decide whether other options ( Depakote for aggression, Exelon patch) should be tried.
[2016-12-06] MEDS: RisperiDONE 0.5 MG TABLET PO SCH (20:21)
[2016-12-06] MEDS: SENNOSIDES 8.6 MG TABLET PO SCH (20:22)
[2016-12-06] MEDS ORDERED: ATORVASTATIN 40 MG TABLET PO SCH (21:00)
[2016-12-07] MEDS: AMLODIPINE 5 MG TABLET PO SCH (09:10)
[2016-12-07] MEDS: CYANOCOBALAMIN (B-12) 500mcg TABLET PO SCH (09:11)
[2016-12-07] MEDS: FERROUS SULFATE 324 MG TABLET PO SCH (09:11)
[2016-12-07] MEDS: REFRESH CLASSIC Eye Drops 0.4ml EACH EYE SCH ×3 (09:11→21:48)
[2016-12-07] MEDS: INDAPAMIDE 2.5 MG TABLET PO SCH (09:11)
[2016-12-07] MEDS: POLYETHYL GLYCOL 3350 17gm PACKET PO SCH (09:11)
[2016-12-07] MEDS: ASCORBIC ACID 500 MG TABLET PO SCH (09:11)
--- NOTE | 2016-12-07 10:36 | Neuropsych Progress Note ---
[facility] Subjective Date: 12/08/16 - Sujective/Severity of Illness Medications: Acetaminophen (Tylenol) 650 mg PO Q4HPRN PRN PRN Reason: Pain Last Admin: 12/05/16 11:42 Dose: 650 mg Amlodipine Besylate (Norvasc) 5 mg PO DAILY [facility] Last Admin: 12/07/16 09:10 Dose: 5 mg Artificial Tears (Refresh Classic) 1 drop EACH EYE TID [facility] Last Admin: 12/07/16 09:11 Dose: 1 drop Ascorbic Acid (Vitamin C) 250 mg PO DAILY [facility] Last Admin: 12/07/16 09:11 Dose: 250 mg Atorvastatin Calcium (Lipitor) 20 mg PO [facility] Cyanocobalamin (Vit. B-12) 1,000 mcg PO DAILY [facility] Last Admin: 12/07/16 09:11 Dose: 1,000 mcg Ergocalciferol (Vitamin D-2) 50,000 unit PO Q7D [facility] Last Admin: 12/04/16 15:51 Dose: 50,000 unit Ferrous Sulfate (Feosol) 324 mg PO DAILY [facility] Last Admin: 12/07/16 09:11 Dose: 324 mg Haloperidol (Haldol) 0.5 mg PO Q6H PRN PRN Reason: Extreme agitation Last Admin: 12/06/16 13:18 Dose: 0.5 mg Haloperidol Lactate (Haldol) 0.5 mg IVP Q6HR PRN Last Admin: 12/05/16 02:50 Dose: 0.5 mg Haloperidol Lactate (Haldol) 0.5 mg IM Q6H PRN PRN Reason: Extreme agitation Indapamide (Lozol) 2.5 mg PO DAILY [facility] Last Admin: 12/07/16 09:11 Dose: 2.5 mg Loratadine (Claritin) 10 mg PO DAILY PRN PRN Reason: PRN orders Lorazepam (Ativan Inj) 0.5 mg IVP Q6H PRN Last Admin: 12/05/16 02:50 Dose: 0.5 mg Lorazepam (Ativan) 0.5 mg PO Q6H PRN PRN Reason: Extreme agitation Last Admin: 12/06/16 13:18 Dose: 0.5 mg Lorazepam (Ativan Inj) 0.5 mg IM Q6H PRN PRN Reason: Extreme agitation Polyethylene Glycol (Miralax) 17 gm PO DAILY [facility] Last Admin: 12/07/16 09:11 Dose: 17 gm Potassium Chloride (K-Dur) 10 meq PO WB [facility] Last Admin: 12/07/16 09:10 Dose: 10 meq Risperidone (Risperdal) 0.5 mg PO HS [facility] Last Admin: 12/06/16 20:21 Dose: 0.5 mg Senna (Senna Lax) 17.2 mg PO HS [facility] Last Admin: 12/06/16 20:22 Dose: 17.2 mg Subjective: Patient seen and chart reviewed. Case discussed with treatment team. Patient is being fed by staff at time of interview. He has his eyes closed through meal but is eating well. He doesn't answer me verbally but rather gives me a thumbs up or shakes his head for no. He indicates his mood is okay and he is feeling well. Staff report that patient had mild resistance to cares last night and initially spit out his HS meds but has been cooperative this morning. Patient slept 8.5 hours overnight. No further PRNs since last seen on unit. Start Time: 09:50 Stop Time: 10:10 Mental Status Exam Vitals: Last Vital Signs Temp 97.8 F 12/07/16 10:00 Pulse 87 12/07/16 10:00 Resp 16 12/07/16 10:00 BP 116/67 12/07/16 10:00 Pulse Ox 100 12/07/16 10:00 Height: 1.78 m Weight: 62.596 kg - Mental Status Exam Muscle Strength/Tone: Weak Dressing: Casual Grooming: Poor Attitude: Cooperative Motor Activity: Retardation (at time of interview) Eye Contact: Other (Sleeping soundly after PRNs at time of rounds) Speech: Slowed (Minimal) Volume: Soft Rhythm: Mumbled, Paucity of Language Orientation: Disoriented to time, Disoriented to place, Disoriented to situation , Oriented to person Mood: Other (Gives thumbs up for mood, restricted affect) Rate of Thoughts: Delayed Thought Organization: [place], Confused Associations: Illogical Abstract Reasoning: Impaired, concrete Thought Content: Other (Poverty of thought) Perception/Psychotic: Other (Unable to assess currently) Language: Naming Impaired Fund of Knowledge: Poor fund of knowledge Memory: Poor-immediate, Poor-recent Suicidal Ideation: None Homicidal Ideation: None Insight: Impaired Judgement: Impaired Impulse Control: Other (Limited) - Laboratory Result Diagrams: 12/06/16 06:02 12/06/16 06:02 Assessment and Plan (1) Major neurocognitive disorder Problem details: 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 Hospital Course: 12/04/16 Assessment Dementia with behavioral changes Hypokalemia Chronic anemia-iron deficiency Hypertension Hypercholesterolemia Constipation Vitamin D deficiency CKD stage II Plan Admission to [facility] for psychiatric med management by Dr. Hayes and to provide a safe environment. Give one 20 mEq dose of potassium today and will order Potassium chloride 10 mEq daily to start tomorrow as he will likely need this given that he is on the indapamide and has been hypokalemic since admission. Will need to follow BMPs periodically. Continue daily MiraLAX and give senna daily at bedtime for bowel regulation. Milk of magnesia and Dulcolax when necessary. Continue ferrous sulfate for chronic iron deficiency anemia and add in vitamin C to aid with absorption. Start vitamin D2 50,000 international units weekly 8 weeks then 1000 international units daily for vitamin D deficiency 12/04/16 Psych: Reviewed labs from admission. Plan to start Risperdal 0.5mg PO q HS to target irritability/agitation. Obtained informed consent from son/SKYLER Lemus. 12/05/16 Psych: Started Risperdal last night but patient has also had 2 antipsychotic PRNs in the past 24 hours. Monitor to ensure restlessness is not d /t akathisia. Unclear whether Risperdal has had any benefit -will continue to monitor as it was just started last night. Agitation seems slightly decreased from admission though restlessness still present. Monitor for pain as well. 12/06/16 Psych: Patient reportedly frequently restless, with aggression this afternoon. Decreased HS dose of atorvastatin from 40mg to 20mg. Continue Risperdal trial and reassess tomorrow. Will then decide whether other options ( Depakote for aggression, Exelon patch) should be tried. 12/07/16 Psych: Patient restless last night but redirectable without PRNs, cooperative this morning. Will continue to monitor behavior, consider further increase in statin.
[2016-12-07] MEDS ORDERED: ATORVASTATIN 20 MG TABLET PO SCH (21:00)
[2016-12-07] MEDS: SENNOSIDES 8.6 MG TABLET PO SCH (21:46)
[2016-12-07] MEDS: RisperiDONE 0.5 MG TABLET PO SCH (21:46)
[2016-12-08] MEDS: SENNOSIDES 8.6 MG TABLET PO SCH ×2 (01:22→20:18)
[2016-12-08] MEDS: INDAPAMIDE 2.5 MG TABLET PO SCH (10:53)
[2016-12-08] MEDS: REFRESH CLASSIC Eye Drops 0.4ml EACH EYE SCH ×3 (10:53→20:18)
[2016-12-08] MEDS: AMLODIPINE 5 MG TABLET PO SCH (10:53)
[2016-12-08] MEDS: ASCORBIC ACID 500 MG TABLET PO SCH (10:53)
[2016-12-08] MEDS: FERROUS SULFATE 324 MG TABLET PO SCH (10:54)
[2016-12-08] MEDS: CYANOCOBALAMIN (B-12) 500mcg TABLET PO SCH (10:54)
[2016-12-08] MEDS: POLYETHYL GLYCOL 3350 17gm PACKET PO SCH (10:55)
--- NOTE | 2016-12-08 15:16 | Neuropsych Progress Note ---
[facility] Subjective Date: 12/08/16 - Sujective/Severity of Illness Medications: Acetaminophen (Tylenol) 650 mg PO Q4HPRN PRN PRN Reason: Pain Last Admin: 12/05/16 11:42 Dose: 650 mg Amlodipine Besylate (Norvasc) 5 mg PO DAILY [facility] Last Admin: 12/08/16 10:53 Dose: 5 mg Artificial Tears (Refresh Classic) 1 drop EACH EYE TID [facility] Last Admin: 12/08/16 14:39 Dose: 1 drop Ascorbic Acid (Vitamin C) 250 mg PO DAILY [facility] Last Admin: 12/08/16 10:53 Dose: 250 mg Atorvastatin Calcium (Lipitor) 20 mg PO HS [facility] Last Admin: 12/07/16 21:47 Dose: 20 mg Cyanocobalamin (Vit. B-12) 1,000 mcg PO DAILY [facility] Last Admin: 12/08/16 10:54 Dose: 1,000 mcg Ergocalciferol (Vitamin D-2) 50,000 unit PO Q7D [facility] Last Admin: 12/04/16 15:51 Dose: 50,000 unit Ferrous Sulfate (Feosol) 324 mg PO DAILY [facility] Last Admin: 12/08/16 10:54 Dose: 324 mg Haloperidol (Haldol) 0.5 mg PO Q6H PRN PRN Reason: Extreme agitation Last Admin: 12/06/16 13:18 Dose: 0.5 mg Haloperidol Lactate (Haldol) 0.5 mg IVP Q6HR PRN Last Admin: 12/05/16 02:50 Dose: 0.5 mg Haloperidol Lactate (Haldol) 0.5 mg IM Q6H PRN PRN Reason: Extreme agitation Indapamide (Lozol) 2.5 mg PO DAILY [facility] Last Admin: 12/08/16 10:53 Dose: 2.5 mg Loratadine (Claritin) 10 mg PO DAILY PRN PRN Reason: PRN orders Lorazepam (Ativan Inj) 0.5 mg IVP Q6H PRN Last Admin: 12/05/16 02:50 Dose: 0.5 mg Lorazepam (Ativan) 0.5 mg PO Q6H PRN PRN Reason: Extreme agitation Last Admin: 12/06/16 13:18 Dose: 0.5 mg Lorazepam (Ativan Inj) 0.5 mg IM Q6H PRN PRN Reason: Extreme agitation Polyethylene Glycol (Miralax) 17 gm PO DAILY [facility] Last Admin: 12/08/16 10:55 Dose: 17 gm Potassium Chloride (K-Dur) 10 meq PO WB [facility] Last Admin: 12/08/16 10:55 Dose: 10 meq Risperidone (Risperdal) 0.5 mg PO HS [facility] Last Admin: 12/07/16 21:46 Dose: 0.5 mg Senna (Senna Lax) 17.2 mg PO [facility] Last Admin: 12/08/16 01:22 Dose: Not Given Subjective: Patient seen and chart reviewed. Case discussed with treatment team. Patient is napping in dayroom but easily arouses to interview. He is conversational, pleasantly confused. He reports that his mood is okay and denies feeling down/depressed. He reports feeling well physically. Patient denies any SI, HI or AVH. Patient denies any adverse side effects related to psychotropic medications. Nursing staff report patient was restless yesterday afternoon and insistent on taking only 1 pill at bedtime. He is unsteady when ambulating and unaware of safety issues. Patient slept 9 hours overnight. VSS. Patient is eating well. Psychotropic PRNs required in the past 24 hours: none. Start Time: 12:20 Stop Time: 12:40 Mental Status Exam Vitals: Last Vital Signs Temp 97.1 F 12/08/16 14:46 Pulse 88 12/08/16 14:46 Resp 14 12/08/16 14:46 BP 121/64 12/08/16 14:46 Pulse Ox 92 12/08/16 14:46 Height: 1.78 m Weight: 62.596 kg - Mental Status Exam Muscle Strength/Tone: Weak Dressing: Casual Grooming: Fair Attitude: Cooperative Motor Activity: Retardation (at time of interview) Eye Contact: Fair Speech: Slowed (Minimal) Volume: Soft Rhythm: Mumbled, Paucity of Language Orientation: Disoriented to time, Disoriented to place, Disoriented to situation , Oriented to person Mood: Neutral (Calm, stable affect during interview) Rate of Thoughts: Delayed Thought Organization: [place], Confused Associations: Illogical Abstract Reasoning: Impaired, concrete Thought Content: Other (Poverty of thought) Perception/Psychotic: Other (Unable to assess currently) Language: Naming Impaired Fund of Knowledge: Poor fund of knowledge Memory: Poor-immediate, Poor-recent Suicidal Ideation: Denies Homicidal Ideation: Denies Insight: Impaired Judgement: Impaired Impulse Control: Poor - Laboratory Result Diagrams: 12/06/16 06:02 12/06/16 06:02 Assessment and Plan (1) Major neurocognitive disorder Problem details: 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 Hospital Course: 12/04/16 Assessment Dementia with behavioral changes Hypokalemia Chronic anemia-iron deficiency Hypertension Hypercholesterolemia Constipation Vitamin D deficiency CKD stage II Plan Admission to [facility] for psychiatric med management by Dr. Hayes and to provide a safe environment. Give one 20 mEq dose of potassium today and will order Potassium chloride 10 mEq daily to start tomorrow as he will likely need this given that he is on the indapamide and has been hypokalemic since admission. Will need to follow BMPs periodically. Continue daily MiraLAX and give senna daily at bedtime for bowel regulation. Milk of magnesia and Dulcolax when necessary. Continue ferrous sulfate for chronic iron deficiency anemia and add in vitamin C to aid with absorption. Start vitamin D2 50,000 international units weekly 8 weeks then 1000 international units daily for vitamin D deficiency 12/04/16 Psych: Reviewed labs from admission. Plan to start Risperdal 0.5mg PO q HS to target irritability/agitation. Obtained informed consent from son/DPAMANDA Lemus. 12/05/16 Psych: Started Risperdal last night but patient has also had 2 antipsychotic PRNs in the past 24 hours. Monitor to ensure restlessness is not d /t akathisia. Unclear whether Risperdal has had any benefit -will continue to monitor as it was just started last night. Agitation seems slightly decreased from admission though restlessness still present. Monitor for pain as well. 12/06/16 Psych: Patient reportedly frequently restless, with aggression this afternoon. Decreased HS dose of atorvastatin from 40mg to 20mg. Continue Risperdal trial and reassess tomorrow. Will then decide whether other options ( Depakote for aggression, Exelon patch) should be tried. 12/07/16 Psych: Patient restless last night but redirectable without PRNs, cooperative this morning. Will continue to monitor behavior, consider further decrease in statin. 12/08/16 Psych: Hold atorvastatin as it may be agitating for patient, will increase Risperdal to 1mg PO q HS and monitor mood, behavior and response to treatment.
[2016-12-08] MEDS: LORazepam 0.5 MG TABLET PO PRN (16:30)
[2016-12-08] MEDS: HALOPERIDOL 0.5 MG TABLET PO PRN (17:46)
[2016-12-08] MEDS: RisperiDONE 1 MG TABLET PO SCH (20:17)
[2016-12-09] MEDS: ASCORBIC ACID 500 MG TABLET PO SCH (09:24)
[2016-12-09] MEDS: AMLODIPINE 5 MG TABLET PO SCH (09:24)
[2016-12-09] MEDS: POLYETHYL GLYCOL 3350 17gm PACKET PO SCH (09:25)
[2016-12-09] MEDS: FERROUS SULFATE 324 MG TABLET PO SCH (09:25)
[2016-12-09] MEDS: CYANOCOBALAMIN (B-12) 500mcg TABLET PO SCH (09:25)
[2016-12-09] MEDS: REFRESH CLASSIC Eye Drops 0.4ml EACH EYE SCH ×3 (09:25→20:57)
[2016-12-09] MEDS: INDAPAMIDE 2.5 MG TABLET PO SCH (09:25)
[2016-12-09] MEDS: ACETAMINOPHEN 325 MG TABLET PO PRN ×2 (10:01→17:47)
[2016-12-09] MEDS ORDERED: BISACODYL 10 MG SUPPOSITORY RECTALLY PRN (11:19)
[2016-12-09] MEDS: HALOPERIDOL 0.5 MG TABLET PO PRN (16:13)
[2016-12-09] MEDS: LORazepam 0.5 MG TABLET PO PRN (16:13)
[2016-12-09] MEDS: SENNOSIDES 8.6 MG TABLET PO SCH (20:57)
[2016-12-09] MEDS: RisperiDONE 1 MG TABLET PO SCH (20:57)
--- NOTE | 2016-12-09 21:46 | Neuropsych Progress Note ---
[facility] Subjective Date: 12/10/16 - Sujective/Severity of Illness Medications: Acetaminophen (Tylenol) 650 mg PO Q4HPRN PRN PRN Reason: Pain Last Admin: 12/09/16 17:47 Dose: 650 mg Amlodipine Besylate (Norvasc) 5 mg PO DAILY [facility] Last Admin: 12/09/16 09:24 Dose: 5 mg Artificial Tears (Refresh Classic) 1 drop EACH EYE TID [facility] Last Admin: 12/09/16 20:57 Dose: 1 drop Ascorbic Acid (Vitamin C) 250 mg PO DAILY [facility] Last Admin: 12/09/16 09:24 Dose: 250 mg Atorvastatin Calcium (Lipitor) 20 mg PO HS [facility] Last Admin: 12/07/16 21:47 Dose: 20 mg Bisacodyl (Dulcolax) 10 mg RECTALLY DAILY PRN PRN Reason: Constipation Last Admin: 12/09/16 11:21 Dose: 10 mg Cyanocobalamin (Vit. B-12) 1,000 mcg PO DAILY [facility] Last Admin: 12/09/16 09:25 Dose: 1,000 mcg Ergocalciferol (Vitamin D-2) 50,000 unit PO Q7D [facility] Last Admin: 12/04/16 15:51 Dose: 50,000 unit Ferrous Sulfate (Feosol) 324 mg PO DAILY [facility] Last Admin: 12/09/16 09:25 Dose: 324 mg Haloperidol (Haldol) 0.5 mg PO Q6H PRN PRN Reason: Extreme agitation Last Admin: 12/09/16 16:13 Dose: 0.5 mg Haloperidol Lactate (Haldol) 0.5 mg IVP Q6HR PRN Last Admin: 12/05/16 02:50 Dose: 0.5 mg Haloperidol Lactate (Haldol) 0.5 mg IM Q6H PRN PRN Reason: Extreme agitation Indapamide (Lozol) 2.5 mg PO DAILY [facility] Last Admin: 12/09/16 09:25 Dose: 2.5 mg Loratadine (Claritin) 10 mg PO DAILY PRN PRN Reason: PRN orders Lorazepam (Ativan Inj) 0.5 mg IVP Q6H PRN Last Admin: 12/05/16 02:50 Dose: 0.5 mg Lorazepam (Ativan) 0.5 mg PO Q6H PRN PRN Reason: Extreme agitation Last Admin: 12/09/16 16:13 Dose: 0.5 mg Lorazepam (Ativan Inj) 0.5 mg IM Q6H PRN PRN Reason: Extreme agitation Polyethylene Glycol (Miralax) 17 gm PO DAILY [facility] Last Admin: 12/09/16 09:25 Dose: 17 gm Potassium Chloride (K-Dur) 10 meq PO WB [facility] Last Admin: 12/09/16 09:24 Dose: 10 meq Risperidone (Risperdal) 1 mg PO HS [facility] Last Admin: 12/09/16 20:57 Dose: 1 mg Senna (Senna Lax) 17.2 mg PO HS [facility] Last Admin: 12/09/16 20:57 Dose: 17.2 mg Subjective: Patient seen and chart reviewed. Case discussed with treatment team. Patient is sleeping soundly in dayroom at time of rounds. Nursing staff report patient can be intermittently restless, wandering, and intrusive. He can be aggressive with staff at times. He appears to be having VH and required a 1:1 through much of day. He is unsteady when ambulating and unaware of safety issues. Patient slept 8.25 hours overnight. VSS. Patient is eating well. Psychotropic PRNs required in the past 24 hours: Ativan 0.5mg PO at 1630, Haldol 0.5mg PO at 1746. Start Time: 17:20 Stop Time: 17:40 Mental Status Exam Vitals: Last Vital Signs Temp 97.4 F 12/08/16 19:55 Pulse 74 12/08/16 19:55 Resp 16 12/08/16 19:55 BP 101/55 12/08/16 19:55 Pulse Ox 100 12/08/16 19:55 Height: 1.78 m Weight: 62.596 kg - Mental Status Exam Muscle Strength/Tone: Weak Dressing: Casual Grooming: Fair Attitude: Other (Asleep at time of rounds) Motor Activity: Retardation (at time of interview) Eye Contact: Fair Speech: Slowed (Minimal) Volume: Soft Rhythm: Mumbled, Paucity of Language Orientation: Disoriented to time, Disoriented to place, Disoriented to situation , Oriented to person Mood: Other (Asleep at time of rounds) Rate of Thoughts: Delayed Thought Organization: [facility], Confused Associations: Illogical Abstract Reasoning: Impaired, concrete Thought Content: Other (Poverty of thought) Perception/Psychotic: Psychotic Current Hallucinations: Visual (reported by staff) Language: Naming Impaired Fund of Knowledge: Poor fund of knowledge Memory: Poor-immediate, Poor-recent Suicidal Ideation: None Homicidal Ideation: None Insight: Impaired Judgement: Impaired Impulse Control: Poor - Laboratory Result Diagrams: 12/06/16 06:02 12/06/16 06:02 Assessment and Plan (1) Major neurocognitive disorder Problem details: 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 Hospital Course: 12/04/16 Assessment Dementia with behavioral changes Hypokalemia Chronic anemia-iron deficiency Hypertension Hypercholesterolemia Constipation Vitamin D deficiency CKD stage II Plan Admission to [facility] for psychiatric med management by Dr. Hayes and to provide a safe environment. Give one 20 mEq dose of potassium today and will order Potassium chloride 10 mEq daily to start tomorrow as he will likely need this given that he is on the indapamide and has been hypokalemic since admission. Will need to follow BMPs periodically. Continue daily MiraLAX and give senna daily at bedtime for bowel regulation. Milk of magnesia and Dulcolax when necessary. Continue ferrous sulfate for chronic iron deficiency anemia and add in vitamin C to aid with absorption. Start vitamin D2 50,000 international units weekly 8 weeks then 1000 international units daily for vitamin D deficiency 12/04/16 Psych: Reviewed labs from admission. Plan to start Risperdal 0.5mg PO q HS to target irritability/agitation. Obtained informed consent from son/DPAMANDA Lemus. 12/05/16 Psych: Started Risperdal last night but patient has also had 2 antipsychotic PRNs in the past 24 hours. Monitor to ensure restlessness is not d /t akathisia. Unclear whether Risperdal has had any benefit -will continue to monitor as it was just started last night. Agitation seems slightly decreased from admission though restlessness still present. Monitor for pain as well. 12/06/16 Psych: Patient reportedly frequently restless, with aggression this afternoon. Decreased HS dose of atorvastatin from 40mg to 20mg. Continue Risperdal trial and reassess tomorrow. Will then decide whether other options ( Depakote for aggression, Exelon patch) should be tried. 12/07/16 Psych: Patient restless last night but redirectable without PRNs, cooperative this morning. Will continue to monitor behavior, consider further decrease in statin. 12/08/16 Psych: Hold atorvastatin as it may be agitating for patient, will increase Risperdal to 1mg PO q HS and monitor mood, behavior and response to treatment. 12/09/16 Psych: Continue current care as Risperdal was just increased; monitor mood, behavior and response to treatment.
[2016-12-10] MEDS: ASCORBIC ACID 500 MG TABLET PO SCH (12:47)
[2016-12-10] MEDS: INDAPAMIDE 2.5 MG TABLET PO SCH (12:47)
[2016-12-10] MEDS: AMLODIPINE 5 MG TABLET PO SCH (12:47)
[2016-12-10] MEDS: FERROUS SULFATE 324 MG TABLET PO SCH (12:47)
[2016-12-10] MEDS: CYANOCOBALAMIN (B-12) 500mcg TABLET PO SCH (12:48)
[2016-12-10] MEDS: POLYETHYL GLYCOL 3350 17gm PACKET PO SCH (12:48)
[2016-12-10] MEDS: REFRESH CLASSIC Eye Drops 0.4ml EACH EYE SCH ×3 (12:49→20:14)
[2016-12-10] MEDS ORDERED: RisperiDONE 0.5 MG TABLET PO SCH (17:00)
--- NOTE | 2016-12-10 17:43 | Progress Note ---
Subjective: Patient is seen today while sleeping. He arouses slightly falls right back to sleep. Nursing staff has no concerns with him at this time. His vital signs, labs and psychiatric notes were reviewed. Objective Vital signs: Temperature 97.6 F 12/10/16 08:00 Pulse Rate 94 12/10/16 08:00 Respiratory Rate 16 12/10/16 08:00 Blood Pressure 111/65 12/10/16 08:00 Pulse Oximetry 94 12/10/16 08:00 Height/Weight/BMI: Height 1.78 m Weight 62.596 kg Body Mass Index 19.8 - Constitutional Present: no acute distress, well developed - Routine Respiratory Exam Present: CTA bilaterally. Absent: wheezes - Routine Cardiovascular Exam Present: RRR, S1, S2. Absent: murmur - Routine Abdominal Exam Present: soft, normoactive bowel sounds, non distended. 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 Vital signs are stable. No change to treatment plan at this time. Hospital Course Summary Disclaimer: The visit summary below is not to be considered part of the above Progress Note. Hospital Course: 12/04/16 Assessment Dementia with behavioral changes Hypokalemia Chronic anemia-iron deficiency Hypertension Hypercholesterolemia Constipation Vitamin D deficiency CKD stage II Plan Admission to [facility] for psychiatric med management by Dr. Hayes and to provide a safe environment. Give one 20 mEq dose of potassium today and will order Potassium chloride 10 mEq daily to start tomorrow as he will likely need this given that he is on the indapamide and has been hypokalemic since admission. Will need to follow BMPs periodically. Continue daily MiraLAX and give senna daily at bedtime for bowel regulation. Milk of magnesia and Dulcolax when necessary. Continue ferrous sulfate for chronic iron deficiency anemia and add in vitamin C to aid with absorption. Start vitamin D2 50,000 international units weekly 8 weeks then 1000 international units daily for vitamin D deficiency 12/04/16 Psych: Reviewed labs from admission. Plan to start Risperdal 0.5mg PO q HS to target irritability/agitation. Obtained informed consent from son/SKYLER Lemus. 12/05/16 Psych: Started Risperdal last night but patient has also had 2 antipsychotic PRNs in the past 24 hours. Monitor to ensure restlessness is not d /t akathisia. Unclear whether Risperdal has had any benefit -will continue to monitor as it was just started last night. Agitation seems slightly decreased from admission though restlessness still present. Monitor for pain as well. 12/06/16 Psych: Patient reportedly frequently restless, with aggression this afternoon. Decreased HS dose of atorvastatin from 40mg to 20mg. Continue Risperdal trial and reassess tomorrow. Will then decide whether other options ( Depakote for aggression, Exelon patch) should be tried. 12/07/16 Psych: Patient restless last night but redirectable without PRNs, cooperative this morning. Will continue to monitor behavior, consider further decrease in statin. 12/08/16 Psych: Hold atorvastatin as it may be agitating for patient, will increase Risperdal to 1mg PO q HS and monitor mood, behavior and response to treatment. 12/10/16 17:43 Labs are stable. Vital signs are stable. No change to treatment plan at this time.
[2016-12-10] MEDS: SENNOSIDES 8.6 MG TABLET PO SCH (20:13)
[2016-12-10] MEDS: RisperiDONE 0.5 MG TABLET PO SCH (20:14)
--- NOTE | 2016-12-10 20:55 | Neuropsych Progress Note ---
[facility] Subjective Date: 12/10/16 - Sujective/Severity of Illness Medications: Acetaminophen (Tylenol) 650 mg PO Q4HPRN PRN PRN Reason: Pain Last Admin: 12/09/16 17:47 Dose: 650 mg Amlodipine Besylate (Norvasc) 5 mg PO DAILY [facility] Last Admin: 12/10/16 12:47 Dose: Not Given Artificial Tears (Refresh Classic) 1 drop EACH EYE TID [facility] Last Admin: 12/10/16 20:14 Dose: 1 drop Ascorbic Acid (Vitamin C) 250 mg PO DAILY [facility] Last Admin: 12/10/16 12:47 Dose: 250 mg Atorvastatin Calcium (Lipitor) 20 mg PO HS [facility] Last Admin: 12/07/16 21:47 Dose: 20 mg Bisacodyl (Dulcolax) 10 mg RECTALLY DAILY PRN PRN Reason: Constipation Last Admin: 12/09/16 11:21 Dose: 10 mg Cyanocobalamin (Vit. B-12) 1,000 mcg PO DAILY [facility] Last Admin: 12/10/16 12:48 Dose: 1,000 mcg Ergocalciferol (Vitamin D-2) 50,000 unit PO Q7D [facility] Last Admin: 12/04/16 15:51 Dose: 50,000 unit Ferrous Sulfate (Feosol) 324 mg PO DAILY [facility] Last Admin: 12/10/16 12:47 Dose: 324 mg Haloperidol (Haldol) 0.5 mg PO Q6H PRN PRN Reason: Extreme agitation Last Admin: 12/09/16 16:13 Dose: 0.5 mg Haloperidol Lactate (Haldol) 0.5 mg IVP Q6HR PRN Last Admin: 12/05/16 02:50 Dose: 0.5 mg Haloperidol Lactate (Haldol) 0.5 mg IM Q6H PRN PRN Reason: Extreme agitation Indapamide (Lozol) 2.5 mg PO DAILY [facility] Last Admin: 12/10/16 12:47 Dose: Not Given Loratadine (Claritin) 10 mg PO DAILY PRN PRN Reason: PRN orders Lorazepam (Ativan Inj) 0.5 mg IVP Q6H PRN Last Admin: 12/05/16 02:50 Dose: 0.5 mg Lorazepam (Ativan) 0.5 mg PO Q6H PRN PRN Reason: Extreme agitation Last Admin: 12/09/16 16:13 Dose: 0.5 mg Lorazepam (Ativan Inj) 0.5 mg IM Q6H PRN PRN Reason: Extreme agitation Polyethylene Glycol (Miralax) 17 gm PO DAILY [facility] Last Admin: 12/10/16 12:48 Dose: 17 gm Potassium Chloride (K-Dur) 10 meq PO WB [facility] Last Admin: 12/10/16 12:47 Dose: 10 meq Risperidone (Risperdal) 0.5 mg PO 15,21 [facility] Last Admin: 12/10/16 20:14 Dose: 0.5 mg Risperidone (Risperdal) 0.5 mg PO 17 [facility] Stop: 12/11/16 16:59 Last Admin: 12/10/16 17:25 Dose: 0.5 mg Senna (Senna Lax) 17.2 mg PO HS [facility] Last Admin: 12/10/16 20:13 Dose: 17.2 mg Subjective: Patient seen and chart reviewed. Case discussed with treatment team. On interview, patient is calm and cooperative in the dayroom. He attempts to put his arm around me as I speak with him (not in an inappropriate manner). He reports that his mood is good, and he is feeling well physically. Patient denies any SI, HI or AVH. Patient denies any adverse side effects related to psychotropic medications. Nursing staff report patient slept in later this morning but has been eating better today. He typically becomes more restless in the afternoons - will continue to monitor. Son expressed concern for oversedation - will split Risperdal dosing to 0.5mg in afternoon, 0.5mg at bedtime to decrease sedative effect and target afternoon restlessness as well. Patient was observed dancing in the dayroom with staff today and seemed to be enjoying himself quite a bit. Patient slept 10 hours overnight. VSS. Patient is eating well. Psychotropic PRNs required in the past 24 hours: none. Start Time: 16:00 Stop Time: 16:20 Mental Status Exam Vitals: Last Vital Signs Temp 96.4 F L 12/10/16 16:00 Pulse 91 12/10/16 16:00 Resp 16 12/10/16 16:00 BP 107/59 12/10/16 16:00 Pulse Ox 96 12/10/16 16:00 Height: 1.78 m Weight: 62.596 kg - Mental Status Exam Muscle Strength/Tone: Weak Dressing: Casual Grooming: Fair Attitude: Cooperative, Other (Asleep at time of rounds) Motor Activity: Retardation (at time of interview) Eye Contact: Fair Speech: Slowed (Minimal) Volume: Soft Rhythm: Mumbled, Paucity of Language Orientation: Disoriented to time, Disoriented to place, Disoriented to situation , Oriented to person Mood: Euthymic Affect: Relaxed Rate of Thoughts: Delayed Thought Organization: [facility], Confused Associations: Intact Abstract Reasoning: Impaired, concrete Thought Content: Other (Poverty of thought) Perception/Psychotic: Hx psychosis, not current Language: Naming Impaired Fund of Knowledge: Poor fund of knowledge Memory: Poor-immediate, Poor-recent Suicidal Ideation: Denies Homicidal Ideation: Denies Insight: Impaired Judgement: Impaired Impulse Control: Poor (improved from previous) - Laboratory Result Diagrams: 12/06/16 06:02 12/06/16 06:02 Assessment and Plan (1) Major neurocognitive disorder Problem details: 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 Hospital Course: 12/04/16 Assessment Dementia with behavioral changes Hypokalemia Chronic anemia-iron deficiency Hypertension Hypercholesterolemia Constipation Vitamin D deficiency CKD stage II Plan Admission to [facility] for psychiatric med management by Dr. Hayes and to provide a safe environment. Give one 20 mEq dose of potassium today and will order Potassium chloride 10 mEq daily to start tomorrow as he will likely need this given that he is on the indapamide and has been hypokalemic since admission. Will need to follow BMPs periodically. Continue daily MiraLAX and give senna daily at bedtime for bowel regulation. Milk of magnesia and Dulcolax when necessary. Continue ferrous sulfate for chronic iron deficiency anemia and add in vitamin C to aid with absorption. Start vitamin D2 50,000 international units weekly 8 weeks then 1000 international units daily for vitamin D deficiency 12/04/16 Psych: Reviewed labs from admission. Plan to start Risperdal 0.5mg PO q HS to target irritability/agitation. Obtained informed consent from son/DPOA Allan. 12/05/16 Psych: Started Risperdal last night but patient has also had 2 antipsychotic PRNs in the past 24 hours. Monitor to ensure restlessness is not d /t akathisia. Unclear whether Risperdal has had any benefit -will continue to monitor as it was just started last night. Agitation seems slightly decreased from admission though restlessness still present. Monitor for pain as well. 12/06/16 Psych: Patient reportedly frequently restless, with aggression this afternoon. Decreased HS dose of atorvastatin from 40mg to 20mg. Continue Risperdal trial and reassess tomorrow. Will then decide whether other options ( Depakote for aggression, Exelon patch) should be tried. 12/07/16 Psych: Patient restless last night but redirectable without PRNs, cooperative this morning. Will continue to monitor behavior, consider further decrease in statin. 12/08/16 Psych: Hold atorvastatin as it may be agitating for patient, will increase Risperdal to 1mg PO q HS and monitor mood, behavior and response to treatment. 12/09/16 Psych: Continue current care as Risperdal was just increased; monitor mood, behavior and response to treatment. 12/10/16 Psych: Will split Risperdal to 0.5mg PO at 1500, 0.5mg PO q HS to minimize any sedative effect and target afternoon restlessness/agitation. Patient has had increased appetite today and been enjoying himself on the unit with staff. Monitor mood, behavior and response to treatment.
[2016-12-11] MEDS: POLYETHYL GLYCOL 3350 17gm PACKET PO SCH (09:33)
[2016-12-11] MEDS: ASCORBIC ACID 500 MG TABLET PO SCH (09:33)
[2016-12-11] MEDS: FERROUS SULFATE 324 MG TABLET PO SCH (09:34)
[2016-12-11] MEDS: INDAPAMIDE 2.5 MG TABLET PO SCH (09:34)
[2016-12-11] MEDS: CYANOCOBALAMIN (B-12) 500mcg TABLET PO SCH (09:34)
[2016-12-11] MEDS: REFRESH CLASSIC Eye Drops 0.4ml EACH EYE SCH ×3 (09:34→20:28)
[2016-12-11] MEDS: AMLODIPINE 5 MG TABLET PO SCH (09:34)
[2016-12-11] MEDS: ERGOCALCIFEROL 50,000 UNIT CAPSULE PO SCH (15:54)
[2016-12-11] MEDS: RisperiDONE 0.5 MG TABLET PO SCH ×2 (15:55→20:28)
--- NOTE | 2016-12-11 17:29 | Neuropsych Progress Note ---
[facility] Subjective Date: 12/11/16 - Sujective/Severity of Illness Medications: Acetaminophen (Tylenol) 650 mg PO Q4HPRN PRN PRN Reason: Pain Last Admin: 12/09/16 17:47 Dose: 650 mg Amlodipine Besylate (Norvasc) 5 mg PO DAILY [facility] Last Admin: 12/11/16 09:34 Dose: 5 mg Artificial Tears (Refresh Classic) 1 drop EACH EYE TID [facility] Last Admin: 12/11/16 15:54 Dose: 1 drop Ascorbic Acid (Vitamin C) 250 mg PO DAILY [facility] Last Admin: 12/11/16 09:33 Dose: 250 mg Atorvastatin Calcium (Lipitor) 20 mg PO HS [facility] Last Admin: 12/07/16 21:47 Dose: 20 mg Bisacodyl (Dulcolax) 10 mg RECTALLY DAILY PRN PRN Reason: Constipation Last Admin: 12/09/16 11:21 Dose: 10 mg Cyanocobalamin (Vit. B-12) 1,000 mcg PO DAILY [facility] Last Admin: 12/11/16 09:34 Dose: 1,000 mcg Ergocalciferol (Vitamin D-2) 50,000 unit PO Q7D [facility] Last Admin: 12/11/16 15:54 Dose: 50,000 unit Ferrous Sulfate (Feosol) 324 mg PO DAILY [facility] Last Admin: 12/11/16 09:34 Dose: 324 mg Haloperidol (Haldol) 0.5 mg PO Q6H PRN PRN Reason: Extreme agitation Last Admin: 12/09/16 16:13 Dose: 0.5 mg Haloperidol Lactate (Haldol) 0.5 mg IVP Q6HR PRN Last Admin: 12/05/16 02:50 Dose: 0.5 mg Haloperidol Lactate (Haldol) 0.5 mg IM Q6H PRN PRN Reason: Extreme agitation Indapamide (Lozol) 2.5 mg PO DAILY [facility] Last Admin: 12/11/16 09:34 Dose: 2.5 mg Loratadine (Claritin) 10 mg PO DAILY PRN PRN Reason: PRN orders Lorazepam (Ativan Inj) 0.5 mg IVP Q6H PRN Last Admin: 12/05/16 02:50 Dose: 0.5 mg Lorazepam (Ativan) 0.5 mg PO Q6H PRN PRN Reason: Extreme agitation Last Admin: 12/09/16 16:13 Dose: 0.5 mg Lorazepam (Ativan Inj) 0.5 mg IM Q6H PRN PRN Reason: Extreme agitation Polyethylene Glycol (Miralax) 17 gm PO DAILY [facility] Last Admin: 12/11/16 09:33 Dose: 17 gm Potassium Chloride (K-Dur) 10 meq PO WB [facility] Last Admin: 12/11/16 09:34 Dose: 10 meq Risperidone (Risperdal) 0.5 mg PO 15,21 [facility] Last Admin: 12/11/16 15:55 Dose: 0.5 mg Senna (Senna Lax) 17.2 mg PO HS [facility] Last Admin: 12/10/16 20:13 Dose: 17.2 mg Subjective: Patient seen and chart reviewed. Case discussed with treatment team. Patient is sleeping at time of rounds. Nursing staff report patient has been calm and cooperative, with no restlessness or aggression since the last progress note. Patient slept 6.75 hours overnight. VSS. Patient is eating well. Psychotropic PRNs required in the past 24 hours: none. Start Time: 15:40 Stop Time: 16:00 Mental Status Exam Vitals: Last Vital Signs Temp 97.8 F 12/11/16 08:00 Pulse 88 12/10/16 23:02 Resp 16 12/11/16 08:00 BP 131/67 12/11/16 08:00 Pulse Ox 94 12/11/16 08:00 Height: 1.78 m Weight: 62.596 kg - Mental Status Exam Muscle Strength/Tone: Weak Dressing: Casual Grooming: Fair Attitude: Other (Asleep at time of rounds) Motor Activity: Retardation (at time of interview) Eye Contact: Fair Speech: Slowed (Minimal) Volume: Soft Rhythm: Mumbled, Paucity of Language Orientation: Disoriented to time, Disoriented to place, Disoriented to situation , Oriented to person Mood: Euthymic (when last seen; currently asleep) Rate of Thoughts: Delayed Thought Organization: [place] Associations: Intact (when last seen) Abstract Reasoning: Impaired, concrete Thought Content: Other (Poverty of thought) Perception/Psychotic: Hx psychosis, 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 Current Hallucinations: Visual (reported by staff) Language: Naming Impaired Fund of Knowledge: Poor fund of knowledge Memory: Poor-immediate, Poor-recent Suicidal Ideation: Denies Homicidal Ideation: Denies Insight: Impaired Judgement: Impaired Impulse Control: Fair - Laboratory Result Diagrams: 12/06/16 06:02 12/06/16 06:02 Assessment and Plan (1) Major neurocognitive disorder Problem details: 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 Hospital Course: 12/04/16 Assessment Dementia with behavioral changes Hypokalemia Chronic anemia-iron deficiency Hypertension Hypercholesterolemia Constipation Vitamin D deficiency CKD stage II Plan Admission to [facility] for psychiatric med management by Dr. Hayes and to provide a safe environment. Give one 20 mEq dose of potassium today and will order Potassium chloride 10 mEq daily to start tomorrow as he will likely need this given that he is on the indapamide and has been hypokalemic since admission. Will need to follow BMPs periodically. Continue daily MiraLAX and give senna daily at bedtime for bowel regulation. Milk of magnesia and Dulcolax when necessary. Continue ferrous sulfate for chronic iron deficiency anemia and add in vitamin C to aid with absorption. Start vitamin D2 50,000 international units weekly 8 weeks then 1000 international units daily for vitamin D deficiency 12/04/16 Psych: Reviewed labs from admission. Plan to start Risperdal 0.5mg PO q HS to target irritability/agitation. Obtained informed consent from son/SKYLER Lemus. 12/05/16 Psych: Started Risperdal last night but patient has also had 2 antipsychotic PRNs in the past 24 hours. Monitor to ensure restlessness is not d /t akathisia. Unclear whether Risperdal has had any benefit -will continue to monitor as it was just started last night. Agitation seems slightly decreased from admission though restlessness still present. Monitor for pain as well. 12/06/16 Psych: Patient reportedly frequently restless, with aggression this afternoon. Decreased HS dose of atorvastatin from 40mg to 20mg. Continue Risperdal trial and reassess tomorrow. Will then decide whether other options ( Depakote for aggression, Exelon patch) should be tried. 12/07/16 Psych: Patient restless last night but redirectable without PRNs, cooperative this morning. Will continue to monitor behavior, consider further decrease in statin. 12/08/16 Psych: Hold atorvastatin as it may be agitating for patient, will increase Risperdal to 1mg PO q HS and monitor mood, behavior and response to treatment. 12/09/16 Psych: Continue current care as Risperdal was just increased; monitor mood, behavior and response to treatment. 12/10/16 Psych: Will split Risperdal to 0.5mg PO at 1500, 0.5mg PO q HS to minimize any sedative effect and target afternoon restlessness/agitation. Patient has had increased appetite today and been enjoying himself on the unit with staff. Monitor mood, behavior and response to treatment. 12/11/16 Psych: Patient is doing well on split dosing, without any aggression or agitation in past 24 hours. Continue current care and SW to look into discharge arrangements with facility; patient needs higher level of care than prior to hospitalization.
[2016-12-11] MEDS: SENNOSIDES 8.6 MG TABLET PO SCH (20:27)
[2016-12-12] MEDS: INDAPAMIDE 2.5 MG TABLET PO SCH (08:22)
[2016-12-12] MEDS: CYANOCOBALAMIN (B-12) 500mcg TABLET PO SCH (08:22)
[2016-12-12] MEDS: ASCORBIC ACID 500 MG TABLET PO SCH (08:22)
[2016-12-12] MEDS: REFRESH CLASSIC Eye Drops 0.4ml EACH EYE SCH ×3 (08:23→20:40)
[2016-12-12] MEDS: FERROUS SULFATE 324 MG TABLET PO SCH (08:23)
[2016-12-12] MEDS: AMLODIPINE 5 MG TABLET PO SCH (08:24)
[2016-12-12] MEDS: POLYETHYL GLYCOL 3350 17gm PACKET PO SCH (08:25)
[2016-12-12] MEDS: LORazepam 0.5 MG TABLET PO PRN (12:25)
[2016-12-12] MEDS: RisperiDONE 0.5 MG TABLET PO SCH (14:02)
--- NOTE | 2016-12-12 17:20 | Neuropsych Progress Note ---
[facility] Subjective Date: 12/12/16 - Sujective/Severity of Illness Medications: Acetaminophen (Tylenol) 650 mg PO Q4HPRN PRN PRN Reason: Pain Last Admin: 12/09/16 17:47 Dose: 650 mg Amlodipine Besylate (Norvasc) 5 mg PO DAILY [facility] Last Admin: 12/12/16 08:24 Dose: Not Given Artificial Tears (Refresh Classic) 1 drop EACH EYE TID [facility] Last Admin: 12/12/16 14:02 Dose: 1 drop Ascorbic Acid (Vitamin C) 250 mg PO DAILY [facility] Last Admin: 12/12/16 08:22 Dose: 250 mg Atorvastatin Calcium (Lipitor) 20 mg PO HS [facility] Last Admin: 12/07/16 21:47 Dose: 20 mg Bisacodyl (Dulcolax) 10 mg RECTALLY DAILY PRN PRN Reason: Constipation Last Admin: 12/09/16 11:21 Dose: 10 mg Cyanocobalamin (Vit. B-12) 1,000 mcg PO DAILY [facility] Last Admin: 12/12/16 08:22 Dose: 1,000 mcg Ergocalciferol (Vitamin D-2) 50,000 unit PO Q7D [facility] Last Admin: 12/11/16 15:54 Dose: 50,000 unit Ferrous Sulfate (Feosol) 324 mg PO DAILY [facility] Last Admin: 12/12/16 08:23 Dose: 324 mg Haloperidol (Haldol) 0.5 mg PO Q6H PRN PRN Reason: Extreme agitation Last Admin: 12/09/16 16:13 Dose: 0.5 mg Haloperidol Lactate (Haldol) 0.5 mg IVP Q6HR PRN Last Admin: 12/05/16 02:50 Dose: 0.5 mg Haloperidol Lactate (Haldol) 0.5 mg IM Q6H PRN PRN Reason: Extreme agitation Indapamide (Lozol) 2.5 mg PO DAILY [facility] Last Admin: 12/12/16 08:22 Dose: 2.5 mg Loratadine (Claritin) 10 mg PO DAILY PRN PRN Reason: PRN orders Lorazepam (Ativan Inj) 0.5 mg IVP Q6H PRN Last Admin: 12/05/16 02:50 Dose: 0.5 mg Lorazepam (Ativan) 0.5 mg PO Q6H PRN PRN Reason: Extreme agitation Last Admin: 12/12/16 12:25 Dose: 0.5 mg Lorazepam (Ativan Inj) 0.5 mg IM Q6H PRN PRN Reason: Extreme agitation Polyethylene Glycol (Miralax) 17 gm PO DAILY [facility] Last Admin: 12/12/16 08:25 Dose: 17 gm Potassium Chloride (K-Dur) 10 meq PO WB [facility] Last Admin: 12/12/16 08:23 Dose: 10 meq Risperidone (Risperdal) 0.5 mg PO 15,21 [facility] Last Admin: 12/12/16 14:02 Dose: 0.5 mg Senna (Senna Lax) 17.2 mg PO HS [facility] Last Admin: 12/11/16 20:27 Dose: 17.2 mg Subjective: Patient seen and chart reviewed. Case discussed with treatment team. Patient is in dayroom at time of interview and is pleasantly confused throughout interview. He reports that his mood is good and he feels well physically. Nursing staff report patient has been more restless and impulsive this morning, exit-seeking and swatting at a nurse when they attempted to redirect him. He was given Ativan 0.5mg PO at 1225 today because of this. Patient slept well overnight. VSS. Patient is eating well. Start Time: 14:40 Stop Time: 15:00 Mental Status Exam Vitals: Last Vital Signs Temp 98.6 F 12/12/16 15:15 Pulse 96 12/12/16 16:30 Resp 16 12/12/16 16:30 BP 112/61 12/12/16 16:30 Pulse Ox 99 12/12/16 15:15 Height: 1.78 m Weight: 64.1 kg - Mental Status Exam Muscle Strength/Tone: Weak Dressing: Casual Grooming: Fair Attitude: Cooperative Motor Activity: Restless (at times) Eye Contact: Fair Speech: Slowed (Minimal) Volume: Soft Rhythm: Mumbled, Paucity of Language Orientation: Disoriented to time, Disoriented to place, Disoriented to situation , Oriented to person Mood: Euthymic (congruent affect) Rate of Thoughts: Delayed Thought Organization: [place] Associations: Intact (when last seen) Abstract Reasoning: Impaired, concrete Thought Content: Other (Poverty of thought) Perception/Psychotic: Hx psychosis, 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 Current Hallucinations: Visual (reported by staff) Language: Naming Impaired Fund of Knowledge: Poor fund of knowledge Memory: Poor-immediate, Poor-recent Suicidal Ideation: Denies Homicidal Ideation: Denies Insight: Impaired Judgement: Impaired Impulse Control: Other (Limited - improved overall since admission) - Laboratory Result Diagrams: 12/06/16 06:02 12/06/16 06:02 Assessment and Plan (1) Major neurocognitive disorder Problem details: 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 Hospital Course: 12/04/16 Assessment Dementia with behavioral changes Hypokalemia Chronic anemia-iron deficiency Hypertension Hypercholesterolemia Constipation Vitamin D deficiency CKD stage II Plan Admission to [facility] for psychiatric med management by Dr. Hayes and to provide a safe environment. Give one 20 mEq dose of potassium today and will order Potassium chloride 10 mEq daily to start tomorrow as he will likely need this given that he is on the indapamide and has been hypokalemic since admission. Will need to follow BMPs periodically. Continue daily MiraLAX and give senna daily at bedtime for bowel regulation. Milk of magnesia and Dulcolax when necessary. Continue ferrous sulfate for chronic iron deficiency anemia and add in vitamin C to aid with absorption. Start vitamin D2 50,000 international units weekly 8 weeks then 1000 international units daily for vitamin D deficiency 12/04/16 Psych: Reviewed labs from admission. Plan to start Risperdal 0.5mg PO q HS to target irritability/agitation. Obtained informed consent from son/SKYLER Lemus. 12/05/16 Psych: Started Risperdal last night but patient has also had 2 antipsychotic PRNs in the past 24 hours. Monitor to ensure restlessness is not d /t akathisia. Unclear whether Risperdal has had any benefit -will continue to monitor as it was just started last night. Agitation seems slightly decreased from admission though restlessness still present. Monitor for pain as well. 12/06/16 Psych: Patient reportedly frequently restless, with aggression this afternoon. Decreased HS dose of atorvastatin from 40mg to 20mg. Continue Risperdal trial and reassess tomorrow. Will then decide whether other options ( Depakote for aggression, Exelon patch) should be tried. 12/07/16 Psych: Patient restless last night but redirectable without PRNs, cooperative this morning. Will continue to monitor behavior, consider further decrease in statin. 12/08/16 Psych: Hold atorvastatin as it may be agitating for patient, will increase Risperdal to 1mg PO q HS and monitor mood, behavior and response to treatment. 12/09/16 Psych: Continue current care as Risperdal was just increased; monitor mood, behavior and response to treatment. 12/10/16 Psych: Will split Risperdal to 0.5mg PO at 1500, 0.5mg PO q HS to minimize any sedative effect and target afternoon restlessness/agitation. Patient has had increased appetite today and been enjoying himself on the unit with staff. Monitor mood, behavior and response to treatment. 12/11/16 Psych: Patient is doing well on split dosing, without any aggression or agitation in past 24 hours. Continue current care and SW to look into discharge arrangements with facility; patient needs higher level of care than prior to hospitalization. 12/12/16 Psych: Staff report continued concern with restlessness and impulsivity during the daytime. Will change Risperdal to 0.5mg in AM and 1mg at HS and monitor response.
[2016-12-12] MEDS: SENNOSIDES 8.6 MG TABLET PO SCH (20:41)
[2016-12-12] MEDS ORDERED: RisperiDONE 1 MG TABLET PO SCH (21:00)
[2016-12-13] MEDS: LORazepam 0.5 MG TABLET PO PRN ×2 (00:28→09:49)
[2016-12-13] MEDS: REFRESH CLASSIC Eye Drops 0.4ml EACH EYE SCH ×3 (08:10→20:21)
[2016-12-13] MEDS: ASCORBIC ACID 500 MG TABLET PO SCH (08:10)
[2016-12-13] MEDS: AMLODIPINE 5 MG TABLET PO SCH (08:10)
[2016-12-13] MEDS: POLYETHYL GLYCOL 3350 17gm PACKET PO SCH (08:10)
[2016-12-13] MEDS: CYANOCOBALAMIN (B-12) 500mcg TABLET PO SCH (08:11)
[2016-12-13] MEDS: FERROUS SULFATE 324 MG TABLET PO SCH (08:12)
[2016-12-13] MEDS: INDAPAMIDE 2.5 MG TABLET PO SCH (08:12)
[2016-12-13] MEDS ORDERED: RisperiDONE 0.5 MG TABLET PO SCH (09:00)
[2016-12-13] MEDS: HALOPERIDOL 0.5 MG TABLET PO PRN (09:49)
--- NOTE | 2016-12-13 09:54 | Progress Note ---
Subjective: Ramon is seen today in follow up sitting with nursing staff in the day room. He is alert and denies having any pain or shortness of breath during examination. Nursing staff report yesterday he was restless with impulsivity and exit seeking behaviors. Vital sings normal. Objective Vital signs: Temperature 98 F 12/12/16 20:38 Pulse Rate 82 12/12/16 20:38 Respiratory Rate 16 12/12/16 20:38 Blood Pressure 108/60 12/12/16 20:38 Pulse Oximetry 95 12/12/16 20:38 Height/Weight/BMI: Height 1.78 m Weight 64.1 kg Body Mass Index 19.8 - Constitutional Present: no acute distress, well nourished, well developed - Routine HEENT Exam Eye: Present: EOMI ENT: Present: mucous membranes moist, dentition normal - Routine Respiratory Exam Present: CTA bilaterally. Absent: wheezes - Routine Cardiovascular Exam Present: RRR, S1, S2. Absent: murmur - Routine Abdominal Exam Present: soft, normoactive bowel sounds, non distended. 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 Vital signs remain stable Psyc notes reviewed. Hospital Course Summary Disclaimer: The visit summary below is not to be considered part of the above Progress Note. Hospital Course: 12/04/16 Assessment Dementia with behavioral changes Hypokalemia Chronic anemia-iron deficiency Hypertension Hypercholesterolemia Constipation Vitamin D deficiency CKD stage II Plan Admission to [facility] for psychiatric med management by Dr. Hayes and to provide a safe environment. Give one 20 mEq dose of potassium today and will order Potassium chloride 10 mEq daily to start tomorrow as he will likely need this given that he is on the indapamide and has been hypokalemic since admission. Will need to follow BMPs periodically. Continue daily MiraLAX and give senna daily at bedtime for bowel regulation. Milk of magnesia and Dulcolax when necessary. Continue ferrous sulfate for chronic iron deficiency anemia and add in vitamin C to aid with absorption. Start vitamin D2 50,000 international units weekly 8 weeks then 1000 international units daily for vitamin D deficiency 12/04/16 Psych: Reviewed labs from admission. Plan to start Risperdal 0.5mg PO q HS to target irritability/agitation. Obtained informed consent from son/DPAMANDA Lemus. 12/05/16 Psych: Started Risperdal last night but patient has also had 2 antipsychotic PRNs in the past 24 hours. Monitor to ensure restlessness is not d /t akathisia. Unclear whether Risperdal has had any benefit -will continue to monitor as it was just started last night. Agitation seems slightly decreased from admission though restlessness still present. Monitor for pain as well. 12/06/16 Psych: Patient reportedly frequently restless, with aggression this afternoon. Decreased HS dose of atorvastatin from 40mg to 20mg. Continue Risperdal trial and reassess tomorrow. Will then decide whether other options ( Depakote for aggression, Exelon patch) should be tried. 12/07/16 Psych: Patient restless last night but redirectable without PRNs, cooperative this morning. Will continue to monitor behavior, consider further decrease in statin. 12/08/16 Psych: Hold atorvastatin as it may be agitating for patient, will increase Risperdal to 1mg PO q HS and monitor mood, behavior and response to treatment. 12/09/16 Psych: Continue current care as Risperdal was just increased; monitor mood, behavior and response to treatment. 12/10/16 Psych: Will split Risperdal to 0.5mg PO at 1500, 0.5mg PO q HS to minimize any sedative effect and target afternoon restlessness/agitation. Patient has had increased appetite today and been enjoying himself on the unit with staff. Monitor mood, behavior and response to treatment. 12/11/16 Psych: Patient is doing well on split dosing, without any aggression or agitation in past 24 hours. Continue current care and SW to look into discharge arrangements with facility; patient needs higher level of care than prior to hospitalization. 12/12/16 Psych: Staff report continued concern with restlessness and impulsivity during the daytime. Will change Risperdal to 0.5mg in AM and 1mg at HS and monitor response.
--- NOTE | 2016-12-13 17:18 | Neuropsych Progress Note ---
[facility] Subjective Date: 12/13/16 - Sujective/Severity of Illness Medications: Acetaminophen (Tylenol) 650 mg PO Q4HPRN PRN PRN Reason: Pain Last Admin: 12/09/16 17:47 Dose: 650 mg Amlodipine Besylate (Norvasc) 5 mg PO DAILY [facility] Last Admin: 12/13/16 08:10 Dose: 5 mg Artificial Tears (Refresh Classic) 1 drop EACH EYE TID [facility] Last Admin: 12/13/16 14:28 Dose: 1 drop Ascorbic Acid (Vitamin C) 250 mg PO DAILY [facility] Last Admin: 12/13/16 08:10 Dose: 250 mg Atorvastatin Calcium (Lipitor) 20 mg PO HS [facility] Last Admin: 12/07/16 21:47 Dose: 20 mg Bisacodyl (Dulcolax) 10 mg RECTALLY DAILY PRN PRN Reason: Constipation Last Admin: 12/09/16 11:21 Dose: 10 mg Cyanocobalamin (Vit. B-12) 1,000 mcg PO DAILY [facility] Last Admin: 12/13/16 08:11 Dose: 1,000 mcg Ergocalciferol (Vitamin D-2) 50,000 unit PO Q7D [facility] Last Admin: 12/11/16 15:54 Dose: 50,000 unit Ferrous Sulfate (Feosol) 324 mg PO DAILY [facility] Last Admin: 12/13/16 08:12 Dose: 324 mg Haloperidol (Haldol) 0.5 mg PO Q6H PRN PRN Reason: Extreme agitation Last Admin: 12/13/16 09:49 Dose: 0.5 mg Haloperidol Lactate (Haldol) 0.5 mg IVP Q6HR PRN Last Admin: 12/05/16 02:50 Dose: 0.5 mg Haloperidol Lactate (Haldol) 0.5 mg IM Q6H PRN PRN Reason: Extreme agitation Indapamide (Lozol) 2.5 mg PO DAILY [facility] Last Admin: 12/13/16 08:12 Dose: 2.5 mg Loratadine (Claritin) 10 mg PO DAILY PRN PRN Reason: PRN orders Lorazepam (Ativan Inj) 0.5 mg IVP Q6H PRN Last Admin: 12/05/16 02:50 Dose: 0.5 mg Lorazepam (Ativan) 0.5 mg PO Q6H PRN PRN Reason: Extreme agitation Last Admin: 12/13/16 09:49 Dose: 0.5 mg Lorazepam (Ativan Inj) 0.5 mg IM Q6H PRN PRN Reason: Extreme agitation Polyethylene Glycol (Miralax) 17 gm PO DAILY [facility] Last Admin: 12/13/16 08:10 Dose: 17 gm Potassium Chloride (K-Dur) 10 meq PO WB [facility] Last Admin: 12/13/16 08:10 Dose: 10 meq Risperidone (Risperdal) 0.5 mg PO HS [facility] Senna (Senna Lax) 17.2 mg PO HS [facility] Last Admin: 12/12/16 20:41 Dose: 17.2 mg Subjective: Patient seen and chart reviewed. Case discussed with treatment team. Patient is sleeping at time of rounds. Nursing staff report patient has been more restless and impulsive this morning, as well as exit-seeking. This may be due to increased antipsychotics as he has also received IM PRNs. Patient slept well overnight. VSS. Patient is eating well. Will decrease total dose of Risperdal; have asked nursing staff to avoid using Haldol PRN. Start Time: 15:00 Stop Time: 15:20 Mental Status Exam Vitals: Last Vital Signs Temp 97.7 F 12/13/16 08:00 Pulse 70 12/13/16 08:00 Resp 18 12/13/16 08:00 BP 113/67 12/13/16 08:00 Pulse Ox 95 12/13/16 08:00 Height: 1.78 m Weight: 64.1 kg - Mental Status Exam Muscle Strength/Tone: Weak Dressing: Casual Grooming: Fair Attitude: Other (asleep at time of rounds) Motor Activity: Restless Eye Contact: Fair Speech: Slowed (Minimal) Volume: Soft Rhythm: Mumbled, Paucity of Language Orientation: Disoriented to time, Disoriented to place, Disoriented to situation , Oriented to person Mood: Other (asleep at time of rounds) Rate of Thoughts: Delayed Thought Organization: [place] Associations: Intact (when last seen) Abstract Reasoning: Impaired, concrete Thought Content: Other (Poverty of thought) Perception/Psychotic: Hx psychosis, 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 Current Hallucinations: Visual (reported by staff) Language: Naming Impaired Fund of Knowledge: Poor fund of knowledge Memory: Poor-immediate, Poor-recent Suicidal Ideation: Denies Homicidal Ideation: Denies Insight: Impaired Judgement: Impaired Impulse Control: Other (limited) - Laboratory Result Diagrams: 12/06/16 06:02 12/06/16 06:02 Assessment and Plan (1) Major neurocognitive disorder Problem details: 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 Hospital Course: 12/04/16 Assessment Dementia with behavioral changes Hypokalemia Chronic anemia-iron deficiency Hypertension Hypercholesterolemia Constipation Vitamin D deficiency CKD stage II Plan Admission to [facility] for psychiatric med management by Dr. Hayes and to provide a safe environment. Give one 20 mEq dose of potassium today and will order Potassium chloride 10 mEq daily to start tomorrow as he will likely need this given that he is on the indapamide and has been hypokalemic since admission. Will need to follow BMPs periodically. Continue daily MiraLAX and give senna daily at bedtime for bowel regulation. Milk of magnesia and Dulcolax when necessary. Continue ferrous sulfate for chronic iron deficiency anemia and add in vitamin C to aid with absorption. Start vitamin D2 50,000 international units weekly 8 weeks then 1000 international units daily for vitamin D deficiency 12/04/16 Psych: Reviewed labs from admission. Plan to start Risperdal 0.5mg PO q HS to target irritability/agitation. Obtained informed consent from son/SKYLER Lemus. 12/05/16 Psych: Started Risperdal last night but patient has also had 2 antipsychotic PRNs in the past 24 hours. Monitor to ensure restlessness is not d /t akathisia. Unclear whether Risperdal has had any benefit -will continue to monitor as it was just started last night. Agitation seems slightly decreased from admission though restlessness still present. Monitor for pain as well. 12/06/16 Psych: Patient reportedly frequently restless, with aggression this afternoon. Decreased HS dose of atorvastatin from 40mg to 20mg. Continue Risperdal trial and reassess tomorrow. Will then decide whether other options ( Depakote for aggression, Exelon patch) should be tried. 12/07/16 Psych: Patient restless last night but redirectable without PRNs, cooperative this morning. Will continue to monitor behavior, consider further decrease in statin. 12/08/16 Psych: Hold atorvastatin as it may be agitating for patient, will increase Risperdal to 1mg PO q HS and monitor mood, behavior and response to treatment. 12/09/16 Psych: Continue current care as Risperdal was just increased; monitor mood, behavior and response to treatment. 12/10/16 Psych: Will split Risperdal to 0.5mg PO at 1500, 0.5mg PO q HS to minimize any sedative effect and target afternoon restlessness/agitation. Patient has had increased appetite today and been enjoying himself on the unit with staff. Monitor mood, behavior and response to treatment. 12/11/16 Psych: Patient is doing well on split dosing, without any aggression or agitation in past 24 hours. Continue current care and SW to look into discharge arrangements with facility; patient needs higher level of care than prior to hospitalization. 12/12/16 Psych: Staff report continued concern with restlessness and impulsivity during the daytime. Will change Risperdal to 0.5mg in AM and 1mg at HS and monitor response. 12/13/16 Psych: Restlessness has increased with increased dose of antipsychotics - may be akathisia. Will decrease total dose back to Risperdal 0.5mg PO q HS and discontinue PRN antipsychotics.
[2016-12-13] MEDS: SENNOSIDES 8.6 MG TABLET PO SCH (20:23)
[2016-12-13] MEDS ORDERED: RisperiDONE 1 MG TABLET PO SCH (21:00)
[2016-12-14] MEDS: ASCORBIC ACID 500 MG TABLET PO SCH (08:07)
[2016-12-14] MEDS: CYANOCOBALAMIN (B-12) 500mcg TABLET PO SCH (08:07)
[2016-12-14] MEDS: POLYETHYL GLYCOL 3350 17gm PACKET PO SCH (08:07)
[2016-12-14] MEDS: INDAPAMIDE 2.5 MG TABLET PO SCH (08:07)
[2016-12-14] MEDS: REFRESH CLASSIC Eye Drops 0.4ml EACH EYE SCH ×3 (08:08→19:12)
[2016-12-14] MEDS: FERROUS SULFATE 324 MG TABLET PO SCH (08:08)
[2016-12-14] MEDS: AMLODIPINE 5 MG TABLET PO SCH (08:08)
--- NOTE | 2016-12-14 10:14 | Neuropsych Progress Note ---
[facility] Subjective Date: 12/14/16 - Sujective/Severity of Illness Medications: Acetaminophen (Tylenol) 650 mg PO Q4HPRN PRN PRN Reason: Pain Last Admin: 12/09/16 17:47 Dose: 650 mg Amlodipine Besylate (Norvasc) 5 mg PO DAILY [facility] Last Admin: 12/14/16 08:08 Dose: 5 mg Artificial Tears (Refresh Classic) 1 drop EACH EYE TID [facility] Last Admin: 12/14/16 08:08 Dose: 1 drop Ascorbic Acid (Vitamin C) 250 mg PO DAILY [facility] Last Admin: 12/14/16 08:07 Dose: 250 mg Atorvastatin Calcium (Lipitor) 20 mg PO HS [facility] Last Admin: 12/07/16 21:47 Dose: 20 mg Bisacodyl (Dulcolax) 10 mg RECTALLY DAILY PRN PRN Reason: Constipation Last Admin: 12/09/16 11:21 Dose: 10 mg Cyanocobalamin (Vit. B-12) 1,000 mcg PO DAILY [facility] Last Admin: 12/14/16 08:07 Dose: 1,000 mcg Ergocalciferol (Vitamin D-2) 50,000 unit PO Q7D [facility] Last Admin: 12/11/16 15:54 Dose: 50,000 unit Ferrous Sulfate (Feosol) 324 mg PO DAILY [facility] Last Admin: 12/14/16 08:08 Dose: 324 mg Haloperidol (Haldol) 0.5 mg PO Q6H PRN PRN Reason: Extreme agitation Last Admin: 12/13/16 09:49 Dose: 0.5 mg Haloperidol Lactate (Haldol) 0.5 mg IVP Q6HR PRN Last Admin: 12/05/16 02:50 Dose: 0.5 mg Haloperidol Lactate (Haldol) 0.5 mg IM Q6H PRN PRN Reason: Extreme agitation Indapamide (Lozol) 2.5 mg PO DAILY [facility] Last Admin: 12/14/16 08:07 Dose: 2.5 mg Loratadine (Claritin) 10 mg PO DAILY PRN PRN Reason: PRN orders Lorazepam (Ativan Inj) 0.5 mg IVP Q6H PRN Last Admin: 12/05/16 02:50 Dose: 0.5 mg Lorazepam (Ativan) 0.5 mg PO Q6H PRN PRN Reason: Extreme agitation Last Admin: 12/13/16 09:49 Dose: 0.5 mg Lorazepam (Ativan Inj) 0.5 mg IM Q6H PRN PRN Reason: Extreme agitation Polyethylene Glycol (Miralax) 17 gm PO DAILY [facility] Last Admin: 12/14/16 08:07 Dose: 17 gm Potassium Chloride (K-Dur) 10 meq PO WB [facility] Last Admin: 12/14/16 08:07 Dose: 10 meq Risperidone (Risperdal) 0.5 mg PO HS [facility] Last Admin: 12/13/16 20:24 Dose: 0.5 mg Senna (Senna Lax) 17.2 mg PO HS [facility] Last Admin: 12/13/16 20:23 Dose: 17.2 mg Subjective: Patient seen and chart reviewed. Nursing reports pt is doing well. Can be impulsive at times but no behaviors noted. On face to face the pt states he is doing well. He is pleasant but confused. Only oriented to self. Denies pain. Tolerating meds Start Time: 09:30 Stop Time: 09:45 Mental Status Exam Vitals: Last Vital Signs Temp 97.4 F 12/14/16 07:41 Pulse 76 12/14/16 07:41 Resp 16 12/14/16 07:41 BP 122/63 12/14/16 07:41 Pulse Ox 97 12/14/16 07:41 Height: 1.78 m Weight: 64.1 kg - Mental Status Exam Muscle Strength/Tone: Weak Dressing: Casual Grooming: Fair Attitude: Other (asleep at time of rounds) Motor Activity: Restless Eye Contact: Fair Speech: Slowed (Minimal) Volume: Soft Rhythm: Mumbled, Paucity of Language Orientation: Disoriented to time, Disoriented to place, Disoriented to situation , Oriented to person Mood: Other (asleep at time of rounds) Rate of Thoughts: Delayed Thought Organization: [place] Associations: Intact (when last seen) Abstract Reasoning: Impaired, concrete Thought Content: Other (Poverty of thought) Perception/Psychotic: Hx psychosis, 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 Current Hallucinations: Visual (reported by staff) Language: Naming Impaired Fund of Knowledge: Poor fund of knowledge Memory: Poor-immediate, Poor-recent Suicidal Ideation: Denies Homicidal Ideation: Denies Insight: Impaired Judgement: Impaired Impulse Control: Other (limited) - Laboratory Result Diagrams: 12/06/16 06:02 12/06/16 06:02 Assessment and Plan (1) Major neurocognitive disorder Problem details: 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 Hospital Course: 12/04/16 Assessment Dementia with behavioral changes Hypokalemia Chronic anemia-iron deficiency Hypertension Hypercholesterolemia Constipation Vitamin D deficiency CKD stage II Plan Admission to [facility] for psychiatric med management by Dr. Hayes and to provide a safe environment. Give one 20 mEq dose of potassium today and will order Potassium chloride 10 mEq daily to start tomorrow as he will likely need this given that he is on the indapamide and has been hypokalemic since admission. Will need to follow BMPs periodically. Continue daily MiraLAX and give senna daily at bedtime for bowel regulation. Milk of magnesia and Dulcolax when necessary. Continue ferrous sulfate for chronic iron deficiency anemia and add in vitamin C to aid with absorption. Start vitamin D2 50,000 international units weekly 8 weeks then 1000 international units daily for vitamin D deficiency 12/04/16 Psych: Reviewed labs from admission. Plan to start Risperdal 0.5mg PO q HS to target irritability/agitation. Obtained informed consent from son/DPAMANDA Lemus. 12/05/16 Psych: Started Risperdal last night but patient has also had 2 antipsychotic PRNs in the past 24 hours. Monitor to ensure restlessness is not d /t akathisia. Unclear whether Risperdal has had any benefit -will continue to monitor as it was just started last night. Agitation seems slightly decreased from admission though restlessness still present. Monitor for pain as well. 12/06/16 Psych: Patient reportedly frequently restless, with aggression this afternoon. Decreased HS dose of atorvastatin from 40mg to 20mg. Continue Risperdal trial and reassess tomorrow. Will then decide whether other options ( Depakote for aggression, Exelon patch) should be tried. 12/07/16 Psych: Patient restless last night but redirectable without PRNs, cooperative this morning. Will continue to monitor behavior, consider further decrease in statin. 12/08/16 Psych: Hold atorvastatin as it may be agitating for patient, will increase Risperdal to 1mg PO q HS and monitor mood, behavior and response to treatment. 12/09/16 Psych: Continue current care as Risperdal was just increased; monitor mood, behavior and response to treatment. 12/10/16 Psych: Will split Risperdal to 0.5mg PO at 1500, 0.5mg PO q HS to minimize any sedative effect and target afternoon restlessness/agitation. Patient has had increased appetite today and been enjoying himself on the unit with staff. Monitor mood, behavior and response to treatment. 12/11/16 Psych: Patient is doing well on split dosing, without any aggression or agitation in past 24 hours. Continue current care and SW to look into discharge arrangements with facility; patient needs higher level of care than prior to hospitalization. 12/12/16 Psych: Staff report continued concern with restlessness and impulsivity during the daytime. Will change Risperdal to 0.5mg in AM and 1mg at HS and monitor response. 12/13/16 Psych: Restlessness has increased with increased dose of antipsychotics - may be akathisia. Will decrease total dose back to Risperdal 0.5mg PO q HS and discontinue PRN antipsychotics. 12/14/16 10:14 Pt is impulsive at times but no behaviors noted. Continue current care
[2016-12-14] MEDS: ACETAMINOPHEN 325 MG TABLET PO PRN (14:31)
[2016-12-14] MEDS: LORazepam 0.5 MG TABLET PO PRN (15:55)
[2016-12-14] MEDS: RisperiDONE 0.5 MG TABLET PO SCH (19:14)
[2016-12-14] MEDS: SENNOSIDES 8.6 MG TABLET PO SCH (19:15)
[2016-12-14 21:40] VITALS: RESP 18
[2016-12-15] MEDS: RisperiDONE 0.5 MG TABLET PO SCH ×2 (01:12→19:44)
[2016-12-15] MEDS: REFRESH CLASSIC Eye Drops 0.4ml EACH EYE SCH ×4 (01:12→19:44)
[2016-12-15] MEDS: SENNOSIDES 8.6 MG TABLET PO SCH ×2 (01:12→19:44)
--- NOTE | 2016-12-15 10:28 | Neuropsych Progress Note ---
[facility] Subjective Date: 12/15/16 - Sujective/Severity of Illness Medications: Acetaminophen (Tylenol) 650 mg PO Q4HPRN PRN PRN Reason: Pain Last Admin: 12/14/16 14:31 Dose: 650 mg Amlodipine Besylate (Norvasc) 5 mg PO DAILY [facility] Last Admin: 12/14/16 08:08 Dose: 5 mg Artificial Tears (Refresh Classic) 1 drop EACH EYE TID [facility] Last Admin: 12/15/16 01:12 Dose: Not Given Ascorbic Acid (Vitamin C) 250 mg PO DAILY [facility] Last Admin: 12/14/16 08:07 Dose: 250 mg Atorvastatin Calcium (Lipitor) 20 mg PO HS [facility] Last Admin: 12/07/16 21:47 Dose: 20 mg Bisacodyl (Dulcolax) 10 mg RECTALLY DAILY PRN PRN Reason: Constipation Last Admin: 12/09/16 11:21 Dose: 10 mg Cyanocobalamin (Vit. B-12) 1,000 mcg PO DAILY [facility] Last Admin: 12/14/16 08:07 Dose: 1,000 mcg Ergocalciferol (Vitamin D-2) 50,000 unit PO Q7D [facility] Last Admin: 12/11/16 15:54 Dose: 50,000 unit Ferrous Sulfate (Feosol) 324 mg PO DAILY [facility] Last Admin: 12/14/16 08:08 Dose: 324 mg Haloperidol (Haldol) 0.5 mg PO Q6H PRN PRN Reason: Extreme agitation Last Admin: 12/13/16 09:49 Dose: 0.5 mg Haloperidol Lactate (Haldol) 0.5 mg IVP Q6HR PRN Last Admin: 12/05/16 02:50 Dose: 0.5 mg Haloperidol Lactate (Haldol) 0.5 mg IM Q6H PRN PRN Reason: Extreme agitation Indapamide (Lozol) 2.5 mg PO DAILY [facility] Last Admin: 12/14/16 08:07 Dose: 2.5 mg Loratadine (Claritin) 10 mg PO DAILY PRN PRN Reason: PRN orders Lorazepam (Ativan Inj) 0.5 mg IVP Q6H PRN Last Admin: 12/05/16 02:50 Dose: 0.5 mg Lorazepam (Ativan) 0.5 mg PO Q6H PRN PRN Reason: Extreme agitation Last Admin: 12/14/16 15:55 Dose: 0.5 mg Lorazepam (Ativan Inj) 0.5 mg IM Q6H PRN PRN Reason: Extreme agitation Polyethylene Glycol (Miralax) 17 gm PO DAILY [facility] Last Admin: 12/14/16 08:07 Dose: 17 gm Potassium Chloride (K-Dur) 10 meq PO WB [facility] Last Admin: 12/14/16 08:07 Dose: 10 meq Risperidone (Risperdal) 0.5 mg PO HS [facility] Last Admin: 12/15/16 01:12 Dose: Not Given Senna (Senna Lax) 17.2 mg PO HS [facility] Last Admin: 12/15/16 01:12 Dose: Not Given Subjective: Patient seen and chart reviewed. Nursing reports pt is doing well. Sleeping well and has a good appetite. On face to face the pt is pleasant but confused. he is only oriented to self. He denies any pain and voices no concerns at this time. Tolerating meds Start Time: 09:30 Stop Time: 09:45 Mental Status Exam Vitals: Last Vital Signs Temp 97.4 F 12/14/16 21:39 Pulse 93 12/14/16 21:39 Resp 18 12/14/16 21:39 BP 135/68 12/14/16 21:39 Pulse Ox 99 12/14/16 21:39 Height: 1.78 m Weight: 64.1 kg - Mental Status Exam Muscle Strength/Tone: Weak Dressing: Casual Grooming: Fair Attitude: Other (asleep at time of rounds) Motor Activity: Normal Eye Contact: Fair Speech: Slowed (Minimal) Volume: Soft Rhythm: Mumbled, Paucity of Language Orientation: Disoriented to time, Disoriented to place, Disoriented to situation , Oriented to person Mood: Neutral Affect: Relaxed Rate of Thoughts: Delayed Thought Organization: [place] Associations: Intact (when last seen) Abstract Reasoning: Impaired, concrete Thought Content: Normal Perception/Psychotic: Hx psychosis, 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 Hospital Course: 12/04/16 Assessment Dementia with behavioral changes Hypokalemia Chronic anemia-iron deficiency Hypertension Hypercholesterolemia Constipation Vitamin D deficiency CKD stage II Plan Admission to [facility] for psychiatric med management by Dr. Hayes and to provide a safe environment. Give one 20 mEq dose of potassium today and will order Potassium chloride 10 mEq daily to start tomorrow as he will likely need this given that he is on the indapamide and has been hypokalemic since admission. Will need to follow BMPs periodically. Continue daily MiraLAX and give senna daily at bedtime for bowel regulation. Milk of magnesia and Dulcolax when necessary. Continue ferrous sulfate for chronic iron deficiency anemia and add in vitamin C to aid with absorption. Start vitamin D2 50,000 international units weekly 8 weeks then 1000 international units daily for vitamin D deficiency 12/04/16 Psych: Reviewed labs from admission. Plan to start Risperdal 0.5mg PO q HS to target irritability/agitation. Obtained informed consent from son/DPAMANDA Lemus. 12/05/16 Psych: Started Risperdal last night but patient has also had 2 antipsychotic PRNs in the past 24 hours. Monitor to ensure restlessness is not d /t akathisia. Unclear whether Risperdal has had any benefit -will continue to monitor as it was just started last night. Agitation seems slightly decreased from admission though restlessness still present. Monitor for pain as well. 12/06/16 Psych: Patient reportedly frequently restless, with aggression this afternoon. Decreased HS dose of atorvastatin from 40mg to 20mg. Continue Risperdal trial and reassess tomorrow. Will then decide whether other options ( Depakote for aggression, Exelon patch) should be tried. 12/07/16 Psych: Patient restless last night but redirectable without PRNs, cooperative this morning. Will continue to monitor behavior, consider further decrease in statin. 12/08/16 Psych: Hold atorvastatin as it may be agitating for patient, will increase Risperdal to 1mg PO q HS and monitor mood, behavior and response to treatment. 12/09/16 Psych: Continue current care as Risperdal was just increased; monitor mood, behavior and response to treatment. 12/10/16 Psych: Will split Risperdal to 0.5mg PO at 1500, 0.5mg PO q HS to minimize any sedative effect and target afternoon restlessness/agitation. Patient has had increased appetite today and been enjoying himself on the unit with staff. Monitor mood, behavior and response to treatment. 12/11/16 Psych: Patient is doing well on split dosing, without any aggression or agitation in past 24 hours. Continue current care and SW to look into discharge arrangements with facility; patient needs higher level of care than prior to hospitalization. 12/12/16 Psych: Staff report continued concern with restlessness and impulsivity during the daytime. Will change Risperdal to 0.5mg in AM and 1mg at HS and monitor response. 12/13/16 Psych: Restlessness has increased with increased dose of antipsychotics - may be akathisia. Will decrease total dose back to Risperdal 0.5mg PO q HS and discontinue PRN antipsychotics. 12/14/16 10:14 Pt is impulsive at times but no behaviors noted. Continue current care 12/15/16 10:28 Pt continues to improve. no behaviors noted. Continue current care
[2016-12-15] MEDS: AMLODIPINE 5 MG TABLET PO SCH (10:33)
[2016-12-15] MEDS: ASCORBIC ACID 500 MG TABLET PO SCH (10:33)
[2016-12-15] MEDS: INDAPAMIDE 2.5 MG TABLET PO SCH (10:34)
[2016-12-15] MEDS: POLYETHYL GLYCOL 3350 17gm PACKET PO SCH (10:34)
[2016-12-15] MEDS: CYANOCOBALAMIN (B-12) 500mcg TABLET PO SCH (10:34)
[2016-12-15] MEDS: FERROUS SULFATE 324 MG TABLET PO SCH (10:34)
[2016-12-15] MEDS: LORazepam 0.5 MG TABLET PO PRN (15:50)
--- NOTE | 2016-12-15 16:27 | Progress Note ---
Subjective: Ramon is seen today in follow up. He is ambulating in the [place] with staff assist. He is unsteady. Doesn't interact with me or talk to me during exam. Chart is reviewed for collateral information. Objective Vital signs: Temperature 97.2 F 12/15/16 16:00 Pulse Rate 79 12/15/16 16:00 Respiratory Rate 18 12/15/16 16:00 Blood Pressure 115/57 12/15/16 16:00 Pulse Oximetry 99 12/15/16 16:00 Height/Weight/BMI: Height 1.78 m Weight 64.1 kg Body Mass Index 19.8 - Constitutional Present: no acute distress, thin - Routine HEENT Exam Head: Present: normocephalic Eye: Present: EOMI, PERRL - Routine Respiratory Exam Present: CTA bilaterally. Absent: rales, rhonchi, crackles - Routine Cardiovascular Exam Present: RRR, S1, S2, no murmur - Routine Abdominal Exam Present: soft, normoactive bowel sounds, non distended, non tender - Routine Extremities Exam Absent: cyanosis, clubbing, full ROM - Routine Musculoskeletal Exam Musculoskeletal: Present: moving extremities well. Absent: normal strength, normal gait - Routine Skin Exam Present: intact, dry, warm - Routine Neurological Exam Present: alert, altered mental status, abnormal gait, moving all extremities. 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 BP is fairly stable. Repeat labs in AM to assess stability. Behaviors improving. Monitor constipation. Hospital Course Summary Disclaimer: The visit summary below is not to be considered part of the above Progress Note. Hospital Course: 12/04/16 Assessment Dementia with behavioral changes Hypokalemia Chronic anemia-iron deficiency Hypertension Hypercholesterolemia Constipation Vitamin D deficiency CKD stage II Plan Admission to [facility] for psychiatric med management by Dr. Hayes and to provide a safe environment. Give one 20 mEq dose of potassium today and will order Potassium chloride 10 mEq daily to start tomorrow as he will likely need this given that he is on the indapamide and has been hypokalemic since admission. Will need to follow BMPs periodically. Continue daily MiraLAX and give senna daily at bedtime for bowel regulation. Milk of magnesia and Dulcolax when necessary. Continue ferrous sulfate for chronic iron deficiency anemia and add in vitamin C to aid with absorption. Start vitamin D2 50,000 international units weekly 8 weeks then 1000 international units daily for vitamin D deficiency 12/04/16 Psych: Reviewed labs from admission. Plan to start Risperdal 0.5mg PO q HS to target irritability/agitation. Obtained informed consent from son/SKYLER Lemus. 12/05/16 Psych: Started Risperdal last night but patient has also had 2 antipsychotic PRNs in the past 24 hours. Monitor to ensure restlessness is not d /t akathisia. Unclear whether Risperdal has had any benefit -will continue to monitor as it was just started last night. Agitation seems slightly decreased from admission though restlessness still present. Monitor for pain as well. 12/06/16 Psych: Patient reportedly frequently restless, with aggression this afternoon. Decreased HS dose of atorvastatin from 40mg to 20mg. Continue Risperdal trial and reassess tomorrow. Will then decide whether other options ( Depakote for aggression, Exelon patch) should be tried. 12/07/16 Psych: Patient restless last night but redirectable without PRNs, cooperative this morning. Will continue to monitor behavior, consider further decrease in statin. 12/08/16 Psych: Hold atorvastatin as it may be agitating for patient, will increase Risperdal to 1mg PO q HS and monitor mood, behavior and response to treatment. 12/09/16 Psych: Continue current care as Risperdal was just increased; monitor mood, behavior and response to treatment. 12/10/16 Psych: Will split Risperdal to 0.5mg PO at 1500, 0.5mg PO q HS to minimize any sedative effect and target afternoon restlessness/agitation. Patient has had increased appetite today and been enjoying himself on the unit with staff. Monitor mood, behavior and response to treatment. 12/11/16 Psych: Patient is doing well on split dosing, without any aggression or agitation in past 24 hours. Continue current care and SW to look into discharge arrangements with facility; patient needs higher level of care than prior to hospitalization. 12/12/16 Psych: Staff report continued concern with restlessness and impulsivity during the daytime. Will change Risperdal to 0.5mg in AM and 1mg at HS and monitor response. 12/13/16 Psych: Restlessness has increased with increased dose of antipsychotics - may be akathisia. Will decrease total dose back to Risperdal 0.5mg PO q HS and discontinue PRN antipsychotics. 12/14/16 10:14 Pt is impulsive at times but no behaviors noted. Continue current care 12/15/16 10:28 Pt continues to improve. no behaviors noted. Continue current care 12/15/16 16:27 He is doing well medically. BP is fairly stable. Repeat labs in AM to assess stability. Behaviors improving. Monitor constipation.
[2016-12-16] MEDS: SENNOSIDES 8.6 MG TABLET PO SCH (02:04)
[2016-12-16] MEDS: RisperiDONE 0.5 MG TABLET PO SCH (02:04)
--- NOTE | 2016-12-16 08:51 | Discharge Instructions ---
Discharge Plan - Med Rec/Dispo Referrals/Follow Up: Manjinder Camejo MD [Other] (Detective Investigator of [facility] will see patient on rounds at the facility. Family declines Mental Health follow-up. ) Additional Instructions: Discharge Diagnosis:Major Neurocognitive Disorder Reasons for Admission: Resistive to cares, and physically aggressive with his . IN CASE OF PSYCHIATRIC EMERGENCY, CONTACT [facility] STAFF AT [phone] ( available 24 hrs daily) Prescriptions: New Haloperidol [Haldol] 0.5 mg PO Q6H PRN #120 tab PRN Reason: Extreme Agitation Discontinued Sertraline HCl [Zoloft] 25 mg PO DAILY Quetiapine [Seroquel] 12.5 mg PO DAILY LORazepam [Ativan] 0.5 mg PO Q4HPRN PRN PRN Reason: Anxiety No Action Loratadine [Claritin] 10 mg PO DAILY PRN PRN Reason: Prn Orders Acetaminophen [Tylenol] 650 mg PO Q4HPRN PRN PRN Reason: Pain Docusate Sodium [Colace] 200 mg PO BID Polyethylene Glycol 3350 [Miralax] 17 gm PO DAILY Ferrous Sulfate [Feosol] 325 mg PO DAILY Atorvastatin [Lipitor] 40 mg PO HS Amlodipine [Norvasc] 5 mg PO DAILY Mineral Oil Oral Liq [Mineral Oil] 30 ml PO TID PRN PRN Reason: Constipation Dextran 70/Hypromellose [Artificial Tears Eye Drops] 1 drop OP TID Indapamide [Lozol] 2.5 mg PO DAILY Discharge Instructions/Outpatient Orders: Provider Discharge Instructions Location: Determined By Patient - Disposition 04 To [facility] Home/Facility
--- NOTE | 2016-12-16 08:54 | Discharge Instructions ---
Discharge Plan - Med Rec/Dispo Referrals/Follow Up: Manjinder Camejo MD [Other] (Database Operator of [facility] will see patient on rounds at the facility. Family declines Mental Health follow-up. ) Additional Instructions: Discharge Diagnosis: Reasons for Admission: Resistive to cares, and physically aggressive with his . IN CASE OF PSYCHIATRIC EMERGENCY, CONTACT [facility] STAFF AT [phone] ( available 24 hrs daily) Repeat CBC and BMP in 2-3 weeks to follow hemoglobin and electrolytes. January 22 should be last weekly dose of Vit D 2 50,000IU. On January 29 , Vit D 1000IU daily should be started. Prescriptions: New Cyanocobalamin (B-12) [Vit. B-12] 1,000 mcg PO DAILY tablet Ergocalciferol (Vit. D2) [Vitamin D-2] 50,000 unit PO Q7D capsule Potassium Chloride [K-Dur] 10 meq PO WB tablet Sennosides [Senna Lax] 17.2 mg PO HS tablet Haloperidol [Haldol] 0.5 mg PO Q6H PRN #120 tab PRN Reason: Extreme Agitation Ascorbic Acid [Vitamin C] 250 mg PO DAILY tablet PEG 3350 17gm PACKET [Miralax] 17 gm PO DAILY packet Continue Loratadine [Claritin] 10 mg PO DAILY PRN PRN Reason: Prn Orders Acetaminophen [Tylenol] 650 mg PO Q4HPRN PRN PRN Reason: Pain Ferrous Sulfate [Feosol] 325 mg PO DAILY Atorvastatin [Lipitor] 40 mg PO HS Amlodipine [Norvasc] 5 mg PO DAILY Dextran 70/Hypromellose [Artificial Tears Eye Drops] 1 drop OP TID Indapamide [Lozol] 2.5 mg PO DAILY Discontinued Sertraline HCl [Zoloft] 25 mg PO DAILY Docusate Sodium [Colace] 200 mg PO BID Quetiapine [Seroquel] 12.5 mg PO DAILY LORazepam [Ativan] 0.5 mg PO Q4HPRN PRN PRN Reason: Anxiety Mineral Oil Oral Liq [Mineral Oil] 30 ml PO TID PRN PRN Reason: Constipation No Action Polyethylene Glycol 3350 [Miralax] 17 gm PO DAILY
--- NOTE | 2016-12-16 08:55 | Extended Care Facility Orders ---
Admission Orders Admit to:: Other Allergies/Adverse Reactions: Allergies No Known Allergies Allergy (Verified 12/02/16 13:53) Admitting Diagnosis: Major Neurocognitive disorder with behavior distur Admitting Physician: Melissa Hayes MD Attending Physician: Melissa Hayes MD Code Status: Do Not Resuscitate Rehab Potential: fair Rehab Prognosis: fair Diet: 12/03/16 Dinner Regular Diet [DIET] Diet Modifications: May use Facility Protocol or Standing Orders: Yes May have flu vaccine: Yes Evaluations/Treatment: as needed [facility] Certification: I certify that SNF services are required to be given on an Inpatient basis because of the patients need for custodial care on a continuing basis for the condition(s) for which he/she received inpatient hospital services prior to his/her transfer to the SNF. SNF inpatient care is necessary for the following reasons Indication for [facility]: Not Applicable - Additional Information Resident is Aware of Diagnosis: No Referrals: Manjinder Camejo MD [Other] (Leather Currier of [facility] will see patient on rounds at the facility. Family declines Mental Health follow-up. )
[2016-12-16] MEDS: REFRESH CLASSIC Eye Drops 0.4ml EACH EYE SCH (09:08)
[2016-12-16] MEDS: FERROUS SULFATE 324 MG TABLET PO SCH (09:09)
[2016-12-16] MEDS: INDAPAMIDE 2.5 MG TABLET PO SCH (09:09)
[2016-12-16] MEDS: CYANOCOBALAMIN (B-12) 500mcg TABLET PO SCH (09:09)
[2016-12-16] MEDS: AMLODIPINE 5 MG TABLET PO SCH (09:09)
[2016-12-16] MEDS: ASCORBIC ACID 500 MG TABLET PO SCH (09:09)
[2016-12-16] MEDS: POLYETHYL GLYCOL 3350 17gm PACKET PO SCH (09:10)
[2016-12-16 10:35] VITALS: BP 115/64; PULSE 75; TEMP 97.2; O2SAT 95
--- NOTE | 2017-01-06 20:00 | Neuropsychiatric Disch Summary ---
Discharge Information Date of admission: 12/03/16 13:31 Attending Physician: Melissa Hayes MD Primary care physician: Tamara Anand DO Consults: 12/03/16 15:47 Case Management Consult [CONS] Routine Reason For Exam: Physician Consult [CONS] Routine Consulting Provider: Raya Loyola Reason For Exam: H&P and medical management Ordering Provider has Notified Project Internship: No 12/11/16 05:22 Dietary Consult [CONS] Routine Comment: Reason For Exam: - Discharge Diagnosis (1) Major neurocognitive disorder Status: Acute Major neurocognitive disorder, vascular etiology suspected, moderate, with behavioral disturbance (improved by time of discharge) - Laboratory Labs: 12/16/16 06:04 12/16/16 06:04 Date of Admission: 12/03/16 13:31 History of Present Illness: Patient is an 86-year-old male who was admitted to [facility] on 12/02 (at first medically due to concern over anemia) and then transferred to [facility] on 12/03 once medically stabilized. Patient lives with in [place] at [facility] and has reportedly been resistive with [facility] cares and physically aggressive with , staff and other residents over the last 2 weeks. He reportedly is impulsive and has had frequent falls. No reported change in appetite. Reportedly sleeps during the day but has difficulty sleeping at night. Patient was previously diagnosed with dementia as well as HTN and HLD. A facility PET SITTER started patient on Seroquel on 11/27 to address behaviors. DPOA is son Allan Patricio. Patient is quite sedated on interview after receiving PRNs on medical floor. He whispers only yes/no and is not able to meaningfully participate in interview. He does state "it hurts" and points to his abdomen. Hospital Course This is a general summary of the patient's hospital course. For more details refer to the complete medical record. Hospital course: 12/04/16 Assessment Dementia with behavioral changes Hypokalemia Chronic anemia-iron deficiency Hypertension Hypercholesterolemia Constipation Vitamin D deficiency CKD stage II Plan Admission to [facility] for psychiatric med management by Dr. Hayes and to provide a safe environment. Give one 20 mEq dose of potassium today and will order Potassium chloride 10 mEq daily to start tomorrow as he will likely need this given that he is on the indapamide and has been hypokalemic since admission. Will need to follow BMPs periodically. Continue daily MiraLAX and give senna daily at bedtime for bowel regulation. Milk of magnesia and Dulcolax when necessary. Continue ferrous sulfate for chronic iron deficiency anemia and add in vitamin C to aid with absorption. Start vitamin D2 50,000 international units weekly 8 weeks then 1000 international units daily for vitamin D deficiency 12/04/16 Psych: Reviewed labs from admission. Plan to start Risperdal 0.5mg PO q HS to target irritability/agitation. Obtained informed consent from son/DPOA Allan. 12/05/16 Psych: Started Risperdal last night but patient has also had 2 antipsychotic PRNs in the past 24 hours. Monitor to ensure restlessness is not d /t akathisia. Unclear whether Risperdal has had any benefit -will continue to monitor as it was just started last night. Agitation seems slightly decreased from admission though restlessness still present. Monitor for pain as well. 12/06/16 Psych: Patient reportedly frequently restless, with aggression this afternoon. Decreased HS dose of atorvastatin from 40mg to 20mg. Continue Risperdal trial and reassess tomorrow. Will then decide whether other options ( Depakote for aggression, Exelon patch) should be tried. 12/07/16 Psych: Patient restless last night but redirectable without PRNs, cooperative this morning. Will continue to monitor behavior, consider further decrease in statin. 12/08/16 Psych: Hold atorvastatin as it may be agitating for patient, will increase Risperdal to 1mg PO q HS and monitor mood, behavior and response to treatment. 12/09/16 Psych: Continue current care as Risperdal was just increased; monitor mood, behavior and response to treatment. 12/10/16 Psych: Will split Risperdal to 0.5mg PO at 1500, 0.5mg PO q HS to minimize any sedative effect and target afternoon restlessness/agitation. Patient has had increased appetite today and been enjoying himself on the unit with staff. Monitor mood, behavior and response to treatment. 12/11/16 Psych: Patient is doing well on split dosing, without any aggression or agitation in past 24 hours. Continue current care and SW to look into discharge arrangements with facility; patient needs higher level of care than prior to hospitalization. 12/12/16 Psych: Staff report continued concern with restlessness and impulsivity during the daytime. Will change Risperdal to 0.5mg in AM and 1mg at HS and monitor response. 12/13/16 Psych: Restlessness has increased with increased dose of antipsychotics - may be akathisia. Will decrease total dose back to Risperdal 0.5mg PO q HS and discontinue PRN antipsychotics. 12/14/16 10:14 Pt is impulsive at times but no behaviors noted. Continue current care 12/15/16 10:28 Pt continues to improve. no behaviors noted. Continue current care 12/15/16 16:27 He is doing well medically. BP is fairly stable. Repeat labs in AM to assess stability. Behaviors improving. Monitor constipation. Discharge Plan - Med Rec/Dispo Referrals/Follow Up: Manjinder Camejo MD [Other] (Parcel Contractor of [facility] will see patient on rounds at the facility. Family declines Mental Health follow-up. ) Additional Instructions: Discharge Diagnosis: Reasons for Admission: Resistive to cares, and physically aggressive with his . IN CASE OF PSYCHIATRIC EMERGENCY, CONTACT GENERATIONS STAFF AT [phone] ( available 24 hrs daily) Repeat CBC and BMP in 2-3 weeks to follow hemoglobin and electrolytes. January 22 should be last weekly dose of Vit D 2 50,000IU. On January 29 , Vit D 1000IU daily should be started. Prescriptions: New Cyanocobalamin (B-12) [Vit. B-12] 1,000 mcg PO DAILY tablet Ergocalciferol (Vit. D2) [Vitamin D-2] 50,000 unit PO Q7D capsule Potassium Chloride [K-Dur] 10 meq PO WB tablet Sennosides [Senna Lax] 17.2 mg PO HS tablet Haloperidol [Haldol] 0.5 mg PO Q6H PRN #120 tab PRN Reason: Extreme Agitation Ascorbic Acid [Vitamin C] 250 mg PO DAILY tablet PEG 3350 17gm PACKET [Miralax] 17 gm PO DAILY packet Continue Loratadine [Claritin] 10 mg PO DAILY PRN PRN Reason: Prn Orders Acetaminophen [Tylenol] 650 mg PO Q4HPRN PRN PRN Reason: Pain Ferrous Sulfate [Feosol] 325 mg PO DAILY Atorvastatin [Lipitor] 40 mg PO HS Amlodipine [Norvasc] 5 mg PO DAILY Dextran 70/Hypromellose [Artificial Tears Eye Drops] 1 drop OP TID Indapamide [Lozol] 2.5 mg PO DAILY Discontinued Sertraline HCl [Zoloft] 25 mg PO DAILY Docusate Sodium [Colace] 200 mg PO BID Quetiapine [Seroquel] 12.5 mg PO DAILY LORazepam [Ativan] 0.5 mg PO Q4HPRN PRN PRN Reason: Anxiety Mineral Oil Oral Liq [Mineral Oil] 30 ml PO TID PRN PRN Reason: Constipation No Action Polyethylene Glycol 3350 [Miralax] 17 gm PO DAILY Discharge Instructions/Outpatient Orders: Provider Discharge Instructions Location: Determined By Patient - Disposition 01 Discharged Home, Self-Care
== END 2016-12-16 11:30 | disposition home or self-care (01) | DRG 884 ==
LOC: GEN
PROVIDERS: ADMIT Psychiatry & Neurology Psychiatry; ATTEND Psychiatry & Neurology Psychiatry